=== PATIENT | female | born 1965 | race Caucasian/White ===

== ENCOUNTER → 2018-05-02 10:52 | Outpatient (CLI) | payer BC, SELFPAY ==
[2017-02-02 16:37] VITALS: BMI 21.2
--- NOTE | 2018-05-02 11:00 | EKG12_ITS ---
Test Reason : PRE OP Blood Pressure : / mmHG Vent. Rate : 057 BPM Atrial Rate : 057 BPM P-R Int : 138 ms QRS Dur : 102 ms QT Int : 426 ms P-R-T Axes : 065 025 036 degrees QTc Int : 414 ms Sinus bradycardia Otherwise normal ECG Confirmed by MARISELA COLON ([id number]), subeditor ZANDER POSADA ([id number]) on 05/04/2018 1:08:22 PM Referred By: Yaw Calero Confirmed By:MARISELA COLON
[2018-05-02 11:34] LABS: Hematocrit 41.7 % (37-47); Hemoglobin 13.4 g/dl (12.0-15.0); Mean Corp Hgb Conc 32.1 g/gl (32-36); Mean Corpuscular Hgb 29.1 pg (27.0-32.0); Mean Corpuscular Volume 90.7 fL (81-99); Platelet Count 265 K/mm3 (150-450); RBC Distribution Width CV 13.1 % (11.6-14.6); RBC Distribution Width SD 42.8 fl (35.1-43.9); White Blood Count 6.3 K/mm3 (4.4-11.0)
[2018-05-02 11:36] LABS: Scan Indicated on CBC? Y/N NO
[2018-05-02 11:57] LABS: Anion Gap 7 (5-15); BUN 12 mg/dL (7-18); BUN/Creat Ratio 18.1 RATIO (10-20); Calcium,Total 8.3 mg/dL (8.5-10.1); Chloride 108 mmol/L (98-107); Creatinine, Serum 0.66 mg/dL (0.55-1.02); EST Glomerular Filtration Rate 99 mL/min (>60); Est Glom Filt Rate - Afr Amer 120 mL/min (>60); Glucose 109 mg/dL (74-106); Potassium 4.1 mmol/L (3.5-5.1); Sodium Level 141 mmol/L (136-145)
== END ==
PROVIDERS: Family Provider Internal Medicine; PCP Internal Medicine; Referring Provider Orthopaedic Surgery; Visit Provider Orthopaedic Surgery
DX: Z01.818 Encounter for other preprocedural examination (principal); Z01.810 Encounter for preprocedural cardiovascular examination
CPT/HCPCS: 36415; 80048; 85027; 93005

== ENCOUNTER 2020-06-29 09:07 | Day surgery (SDC) | payer OTHER, SELFPAY ==
[2020-06-29] VITALS (8 sets, daily range): BP systolic 86–124; BP diastolic 54–66; PULSE 52–60; RESP 14–16; TEMP 36.5–36.6; O2SAT 99–100; BMI 22.9
[2020-06-29] MEDS: Lactated Ringers 1,000 ML 100 ML IV (09:55)
--- NOTE | 2020-06-29 10:20 | RAD_ITS ---
PROCEDURE: Left C4-C7 nerve root block. DATE OF EXAMINATION: 06/29/2020. INDICATION: Female, 54 years old. Chronic neck pain. FLUOROSCOPY TIME (if supplied): (9 seconds) minutes/seconds. 4 intraoperative images were obtained. Intraoperative images provided for left C4-C7 nerve root block. RAD/Cerv Spine 4 or 5 Views IMPRESSION: Intraoperative imaging provided for left C4-C7 nerve root block. Electronically Signed: Phill Cárdenas MD at 14:04 EDT , Service support ,
[2020-06-29] MEDS: MethylPREDNISolone Acetate 80 MG/ML Vial (10:25)
[2020-06-29] MEDS: Bupivacaine 0.25% 30 ML Vial (10:25)
--- NOTE | 2020-06-29 10:31 | OP.PCM_ITS ---
Report of Operation Description of Surgical Findings:: PREOPERATIVE DIAGNOSIS: Cervical spondylosis, cervical degenerative disc disease, cervical facet arthropathy POSTOPERATIVE DIAGNOSIS: Cervical spondylosis, cervical degenerative disc disease, cervical facet arthropathy PROCEDURE PERFORMED: Diagnostic left-sided cervical medial branch block at, C4, C5, C6, and C7. ANESTHESIA: MAC. BLOOD LOSS: Minimal. COMPLICATIONS: None. DESCRIPTION OF PROCEDURE: History and physical of today was reviewed. Risks and benefits of the procedure were explained. The patient understood and agreed to proceed. Informed consent was obtained. IV inserted per routine protocol. The patient was taken to the operating room and placed in the prone position with a pillow positioned underneath the chest. The neck area was prepped and draped in a sterile fashion using iodine x3. Under fluoroscopy guidance on an AP view, the C4 through C7 vertebral bodies were visualized at approximately 10- degree angle, starting on the left C4, ending on the left C7, passing through the C5 and C6. Using a 25-gauge 3-1/2-inch spinal needle, the needle was advanced via the skin. The tip of the needle was maneuvered and directed towards the epiphyseal junction of each corresponding vertebra. Once the tip of the needle was at the vicinity of the medial branch, the needle was pulled approximately 2 mm off the bone. After negative aspiration of blood or CSF and confirmation on AP, oblique as well as lateral view, a total of 4 mL of preservative-free 0.25% Marcaine with 80 mg of Depo-Medrol was injected in divided doses between those four levels. The needles were then removed intact. The patient experienced no sign or symptoms of intrathecal or intravascular injection. The patient experienced no paresthesia. The procedure was completed without any apparent difficulty or any complications. The patient appeared to tolerate it well. ASSESSMENT AND PLAN: This is a 54-year-old female with cervical spondylosis, cervical degenerative disc disease, cervical facet arthropathy status post diagnostic left-sided cervical medial branch block at C4-C7, patient will continue her current medications, patient will follow in approximately 2 weeks for reevaluation. Type of Anesthesia: MAC Estimated Blood Loss (mL): minimal Complications None
== END 2020-06-29 11:35 | disposition home or self-care (01) ==
LOC: SDC 09:08 → AC 09:10
PROVIDERS: PCP Internal Medicine; Referring Provider Anesthesiology Pain Medicine; Visit Provider Anesthesiology Pain Medicine
PROC: 3E0U3BZ Introduction of Anesthetic Agent into Joints, Percutaneous Approach (ICD-10-PCS; CPT 64490; principal; 2020-06-29 10:35)
DX: M47.812 Spondylosis without myelopathy or radiculopathy, cervical region (principal); M50.30 Other cervical disc degeneration, unspecified cervical region; K21.9 Gastro-esophageal reflux disease without esophagitis
CPT/HCPCS: 64491; 64490; 72050; J7120

== ENCOUNTER 2020-12-26 10:32 | Emergency (ER) | payer OTHER, SELFPAY ==
[2020-12-26 10:33] VITALS: BP 96/60; PULSE 72; RESP 16; TEMP 36.6; O2SAT 99; BMI 21.9
--- NOTE | 2020-12-26 10:46 | EX.ED.GENINJ ---
HPI History of Present Illness Chief Complaint: Laceration Informant: patient Narrative Narrative: 55-year-old female presents the emergency department with a laceration of the left middle finger. Patient was attempting to move some metal art work when a piece of the metal lacerated her finger. She notes that she is left-handed. Tetanus is less than 5 years. Tetanus Immunization: <5 years PFSH PFSH Medical History Back problem Post-menopausal Home Medications cephalexin 500 mg PO Q6 #20 capsule 12/26/20 [Rx Last Taken Unknown] Allergy/AdvReac Type Severity Reaction Status Date / Time No Known Allergies Allergy Verified 12/26/20 10:34 Family History (Updated 04/30/19 @ 14:04 by Melva Rivera) Sister Arthritis Lung cancer Brother Heart disease Surgical History History of breast augmentation History of tonsillectomy Social History Smoking Status: Never smoker alcohol intake: current substance use type: does not use additional social history: DOES USE ASPIRIN DOES USE IBUPROFEN ROS ROS ED Constitutional Constitutional ED: Denies chills, fever(s) or weight loss Eyes Eyes: Denies change in vision or diplopia ENT ENT ED: Denies ear pain, rhinorrhea or sore throat Cardiovascular Cardiovascular: Denies chest pain, orthopnea, palpitations or racing heartbeat Respiratory/Chest Respiratory/Chest: Denies cough, dyspnea or orthopnea Gastrointestinal Gastrointestinal: Denies abdominal pain, diarrhea, nausea or vomiting Genitourinary Genitourinary ED: Denies dysuria, hematuria or urinary frequency Musculoskeletal Musculoskeletal: Denies arthralgias or myalgias Integumentary Reports other Details: Left middle finger laceration ; Denies abscess or rash Neurologic Neurologic: Denies headache(s) or weakness Psychiatric Psychiatric: Denies anxiety, depression, suicidal ideation or suicidal thoughts Endocrine Endocrinology: Denies polydipsia, polyphagia or polyuria Allergic/Immunologic Allergic/Immunologic ED: Denies mouth swelling, tongue swelling or urticaria EXAM Physical Exam Const Vital Signs: 12/26/20 10:33 Temperature 98 F Temperature Source Temporal Pulse Rate 72 Respiratory Rate 16 Blood Pressure 96/60 Blood Pressure Mean 72 Pulse Ox 99 Oxygen Delivery Method Room Air Positive well nourished and well developed General Appearance ED: well developed HEENT Reports normocephalic, head/scalp atraumatic, TM's clear and moist mucous membranes atraumatic Tympanic Membrane ED: Yes TM's clear Eyes PERRL and EOMs intact bilaterally Neck full ROM, no lymphadenopathy, supple and no JVD General: tenderness Resp normal respiratory effort and clear to auscultation bilaterally Cardio regular rate, regular rhythm and no murmurs Rate: regular rate GI normal to inspection, nondistended, normoactive bowel sounds and non-tender Palpation: soft Back/Spine no CVA tenderness and normal ROM Extremity Extremity Narrative: There appears to be no deficit in extensor tendon function over the proximal phalanx on the dorsal surface left middle finger is a flap laceration measuring approximately 1.5 cm there is visualization of the tendon but it does not appear to be lacerated. General Extremety ED: Negative for edema General Extremity: Negative for edema Neuro oriented x3 and CN's II-XII intact bilaterally Sensorium / Orientation: alert Motor Exam: strength 5/5 throughout Psych mental status grossly normal Mood & Affect: Negative for depressed or tearful Skin no rashes or lesions noted and no wounds MDM MDM MDM Narrative Medical decision making narrative: Wound was locally anesthetized using 1% lidocaine washed with Shur-Clens and explored. It was closed using a total of 4 simple interrupted 4-0 Ethilon sutures. Patient was placed on Keflex for few days for prophylaxis. Stitches will need to be removed in 7 to 10 days. Discharge Plan Triage Chief Complaint: Laceration ED Provider: Nadeem Jacques Dx/Rx/DC Orders Clinical Impression: Laceration of finger of left hand Instructions: ED Laceration, Hand: All Closures Prescriptions: New cephalexin [cephalexin] 500 MG capsule 500 mg PO Q6 Qty: 20 RF: 0 Primary Care Provider: Madie Metcalf Referrals: Madie Metcalf MD [Primary Care Provider] - 10 Day for suture removal Disposition Disposition: Home, Self Care
[2020-12-26] MEDS: Lidocaine 1% (20 ml mdv) 20 ML Vial INFILT (11:04)
[2020-12-26 11:08] VITALS: RESP 16
== END 2020-12-26 11:15 | disposition home or self-care (01) ==
LOC: ED 11:12
PROVIDERS: Emergency Provider Emergency Medicine; PCP Internal Medicine
DX: S61.213A Laceration without foreign body of left middle finger without damage to nail, initial encounter (principal); W26.8XXA Contact with other sharp object(s), not elsewhere classified, initial encounter; Y93.89 Activity, other specified; Y92.89 Other specified places as the place of occurrence of the external cause; Y99.8 Other external cause status
CPT/HCPCS: 12001; 99283

== ENCOUNTER 2021-01-21 16:13 | Emergency (ER) | payer OTHER, SELFPAY ==
[2021-01-21 16:14] VITALS: BP 118/56; PULSE 74; RESP 18; TEMP 36.4; O2SAT 100; BMI 21.4
--- NOTE | 2021-01-21 16:21 | EDS_ITS ---
HPI History of Present Illness Chief Complaint: Lower Extremity Injury Narrative Narrative: 55-year-old female presenting with left great toe pain. She states she slammed in a door at about 1130. She has some bruising noted to the dorsal aspect of the left great toe. She has been ambulatory. He does note there is some bruising at the base of the nail. She does not have any lacerations or abrasions. No numbness or tingling. She took Tylenol earlier but this does not seem to control the pain. [facility] Medical History Back problem Post-menopausal Home Medications naproxen [Naprosyn] 500 mg PO BID PRN #20 tab 01/21/21 [Rx Last Taken Unknown] Allergy/AdvReac Type Severity Reaction Status Date / Time No Known Allergies Allergy Verified 01/21/21 16:16 Family History Sister Arthritis Lung cancer Brother Heart disease Surgical History History of breast augmentation History of tonsillectomy Social History Smoking Status: Never smoker alcohol intake: current substance use type: does not use additional social history: DOES USE ASPIRIN DOES USE IBUPROFEN ROS ROS ED Constitutional Constitutional ED: Denies chills, fever(s) or subjective Eyes Eyes: Denies blurry vision or change in vision ENT ENT ED: Denies ear pain or rhinorrhea Cardiovascular Cardiovascular: Denies chest pain or palpitations Respiratory/Chest Respiratory/Chest: Denies cough or dyspnea Gastrointestinal Gastrointestinal: Denies abdominal pain or nausea Genitourinary Genitourinary ED: Denies dysuria or hematuria Musculoskeletal Musculoskeletal: Reports other Details: Left great toe pain Integumentary Denies abscess or rash Neurologic Neurologic: Denies headache(s) or paresthesias EXAM Physical Exam Const Vital Signs: 01/21/21 16:14 Temperature 97.6 F L Temperature Source Temporal Pulse Rate 74 Respiratory Rate 18 Blood Pressure 118/56 L Blood Pressure Mean 76 Pulse Ox 100 Oxygen Delivery Method Room Air Positive well nourished General Appearance ED: NAD HEENT Reports moist mucous membranes normocephalic and atraumatic Resp normal respiratory effort Effort and Inspection: able to speak in complete sentences Cardio regular rate and regular rhythm Extremity Extremity Narrative: Tenderness palpation over the dorsum of the left great toe. There are some bruising at the base of the nailbed. There is no obvious deformity. Left foot neurovascular intact brisk cap refill to all 5 toes Neuro oriented x3 Sensorium / Orientation: alert Psych mental status grossly normal Skin Skin Narrative: As described above MDM MDM MDM Narrative Medical decision making narrative: 55-year-old female presenting with left great toe pain. She states he slammed it in a door earlier today. She took Tylenol without significant relief. She is given Naprosyn in the ER as she is driving. I ordered an x-ray of the left foot. While awaiting the results of the x-ray the patient states I have to leave I have people showing up to my house for Thanksgiving. I did review the x-ray and on my interpretation the left foot shows no fracture or subluxation. Patient counseled that she will likely need anti-inflammatories, ice and elevation. Impression: 1. Left great toe contusion Radiography Diagnostic Testing: Clinical Impression(s) from Imaging Studies Foot X-Ray 01/21/21 16:21 IMPRESSION: Normal x-ray examination of the foot. Electronically Signed: Pool Boogie MD at 17:20 EST , Service support , Discharge Plan Triage Chief Complaint: Lower Extremity Injury ED Provider: Santiago Wong Dx/Rx/DC Orders Instructions: ED Contusion, Lower Extremity Prescriptions: New naproxen [Naprosyn] 500 mg tablet 500 mg PO BID PRN (Reason: pain) Qty: 20 RF: 0 Primary Care Provider: Madie Metcalf Referrals: Madie Metcalf MD [Primary Care Provider] - Disposition Disposition: Home, Self Care Discharge Date/Time: 01/21/21 17:59
--- NOTE | 2021-01-21 16:21 | RAD_ITS ---
STUDY: X-RAY - LEFT FOOT CLINICAL: Female, 55 years old. great toe pain TECHNIQUE: 4 view(s) of the foot. COMPARISON: None. FINDINGS: Normal talus, calcaneus, and tarsal bones. Normal visualized subtalar, talonavicular, calcaneocuboid, tarsal and tarsometatarsal articulations. Normal metatarsi. Normal metatarsophalangeal joint of the great toe. Normal tibial and fibular sesamoid bones. Normal interphalangeal joint of the great toe. Normal phalanges of the great toe. Normal second through fifth metatarsophalangeal joints. Normal interphalangeal joints and phalanges of the lesser toes. The soft tissue structures are unremarkable. There is no demonstrated fracture. RAD/Foot min 3 Views IMPRESSION: Normal x-ray examination of the foot. Electronically Signed: Pool Boogie MD at 17:20 EST , Service support ,
[2021-01-21] MEDS: Naproxen 500 MG Tablet PO (16:27)
== END 2021-01-21 17:59 | disposition home or self-care (01) ==
PROVIDERS: Emergency Provider Student in an Organized Health Care Education/Training Program; PCP Internal Medicine
DX: S90.112A Contusion of left great toe without damage to nail, initial encounter (principal); W20.8XXA Other cause of strike by thrown, projected or falling object, initial encounter; Y93.89 Activity, other specified; Y92.008 Other place in unspecified non-institutional (private) residence as the place of occurrence of the external cause; Y99.8 Other external cause status
CPT/HCPCS: 73630; 99283

== ENCOUNTER → 2021-07-19 | Outpatient (CLI) | payer BC, SELFPAY ==
[2021-07-19 17:52] LABS: Prothrombin Time (Protime)PT. 13.1 SECONDS (11.7-14.9)
== END | disposition home or self-care (01) ==
LOC: LABSPEC 16:55
PROVIDERS: PCP Internal Medicine
DX: R10.2 Pelvic and perineal pain (principal)
CPT/HCPCS: 85610

== ENCOUNTER → 2021-11-11 | Outpatient (CLI) | payer BC, SELFPAY ==
--- NOTE | 2021-11-11 15:13 | VDLE_ITS ---
Reason For Study: localized swelling Procedure LEFT This is a venous duplex using B-mode, color GSV is normal. flow and spectral Doppler. CFV is compressible, spontaneous, phasic, Exam performed in department. competent, and demonstrates normal The exam was abbreviated due to the COVID 19 augmentation. protocol. FV is compressible, spontaneous, phasic, The exam was diagnostic. competent and demonstrates normal A preliminary report was called and/or faxed augmentation. to Dr. Connelly. POP V is compressible, spontaneous, phasic, competent and demonstrates normal augmentation. T/P Trunk is compressible. PTV is compressible. LT PerV is compressible. Hypoechoic area behind the knee measuring 1.98 x .85 cm. Area is nonvascular. VL/Venous Duplex US, Unilateral Interpretation Summary There is no evidence of left lower extremity deep vein thrombosis. Left great s aphenous vein appears patent and compressible segmentally. Left popliteal fossa 1.98 x 0.85 nonvascul ar complex hypoechoic lesion consistent with a Packer's cyst based upon location. Clinical correlation would be appropriate. Ordering Physician: Ted Connelly Performed By: Steve Topete RVT
== END | disposition home or self-care (01) ==
LOC: CVS 15:10
PROVIDERS: PCP Internal Medicine; Visit Provider Student in an Organized Health Care Education/Training Program
DX: R22.42 Localized swelling, mass and lump, left lower limb (principal)
CPT/HCPCS: 93971

== ENCOUNTER 2022-02-20 15:29 | Emergency (ER) | payer BC, SELFPAY ==
[2022-02-20 15:29] VITALS: BP 142/71; PULSE 64; RESP 15; TEMP 36; O2SAT 100; BMI 23.8
--- NOTE | 2022-02-20 15:43 | EDS_ITS ---
HPI History of Present Illness HPI Narrative: Atraumatic pain and swelling left distal forearm. No fall injury or trauma. Recently she was peeling a lot of potatoes for Holiday meal and yesterday is when the pain and swelling occurred while she was doing that. She is on no medications and no blood thinners. No prior history. She is left-hand dominant. Chief Complaint: Upper Extremity Injury Informant: patient Occured/Mechanism Mechanism/Context: No injury and No blunt trauma Onset/Context/Timing Onset: Yesterday Context: Gradual Onset Timing: Continuous Quality of Pain: Dull Current Severity: Mild Maximum Severity: Mild Associated Symptoms Associated Symptoms: Negative for Parasthesia, Weakness or Loss of Funtion Narrative Narrative: 58-year-old female left hand dominant. Atraumatic pain and swelling left forearm after peeling a lot of potatoes. She is on no blood thinners or other medications. She denies any known injury. Prior similar symptoms: No Recent Illness/Hospitalization: No PFSH PFSH Medical History Back problem Diastasis of rectus abdominis Elective procedure for unacceptable cosmetic appearance Excessive skin and subcutaneous tissue Platysmal band of neck Post-menopausal Skin laxity Skin striae Home Medications naproxen 500 mg tablet (Naprosyn) 500 mg PO BID PRN pain #20 tabs 01/21/21 [Rx Last Taken Unknown] Allergy/AdvReac Type Severity Reaction Status Date / Time No Known Allergies Allergy Verified 02/20/22 15:29 Family History Sister Arthritis Lung cancer Brother Heart disease Surgical History History of bilateral saline breast implants History of breast augmentation History of tonsillectomy Social History Smoking Status: Never smoker alcohol intake: current substance use type: does not use additional social history: DOES USE ASPIRIN DOES USE IBUPROFEN ROS ROS ED ROS Narrative No recent illness. Review of Systems ROS Unobtainable: Denies due to encephalopathy Constitutional Constitutional ED: Denies chills or fever(s) Eyes Eyes: Denies blurry vision ENT ENT ED: Denies ear pain Cardiovascular Cardiovascular: Denies chest pain Respiratory/Chest Respiratory/Chest: Denies cough or dyspnea Gastrointestinal Gastrointestinal: Denies abdominal pain Genitourinary Genitourinary ED: Denies dysuria or hematuria Musculoskeletal Musculoskeletal: Denies back pain or myalgias Integumentary Denies abscess Neurologic Neurologic: Denies headache(s) Psychiatric Psychiatric: Denies anxiety or depression Endocrine Endocrinology: Denies cold intolerance Hematologic/Lymphatic Hematologic/Lymphatic: Denies easy bleeding Allergic/Immunologic Allergic/Immunologic ED: Denies mouth swelling or tongue swelling EXAM Physical Exam Narrative Exam Narrative: 36-year-old female no acute distress. Vital signs stable afebrile. H EENT exam unremarkable. Neck nontender no lymphadenopathy. Lungs clear to auscultation. Heart regular rhythm no murmur. Abdomen soft nontender. Moving all 4 extremities. Neurovascular intact. The left forearm distal third on the dorsum she has mild swelling and tenderness over the extensor muscle. No bony deformity. Full flexion-extension and rotation of the left shoulder, elbow, wrist and hand. Normal motor strength the left hand. Normal sensation. Normal radial pulse. Neurologic exam normal. Const Vital Signs: 02/20/22 15:29 Temperature 96.8 F L Temperature Source Temporal Pulse Rate 64 Respiratory Rate 15 Blood Pressure 142/71 H Blood Pressure Mean 94 Pulse Ox 100 Oxygen Delivery Method Room Air Positive well nourished and well developed; Negative for obese, cachectic, contr actures or unkempt General Appearance ED: well developed and NAD; Negative for unkempt, cachectic, contractures, cyanotic or diaphoretic Nutritional Appearance: Negative for cachectic or obese HEENT Reports moist mucous membranes normocephalic and atraumatic; Negative for trauma or tenderness Eyes PERRL and EOMs intact bilaterally General Eye ED: Negative for other Neck full ROM and supple General: Negative for tenderness Lymph Lymphatic: Negative for other Chest Wall inspection of chest normal and palpation of chest normal Chest: Negative for other Resp normal respiratory effort and clear to auscultation bilaterally Effort and Inspection: Negative for pain with movement Auscultation: Negative for rales or rhonchi Cardio regular rate, regular rhythm, S1 normal heart sound, S2 normal heart sound and no murmurs Rate: Negative for bradycardia or tachycardic Rhythm: Negative for abnormal rhythm GI non-tender, non-distended and no masses Inspection: Negative for abdominal distention Auscultation: normoactive bowel sounds Palpation: soft; Negative for tender or guarding Back/Spine no CVA tenderness General Back: Negative for CVA tenderness Cervical Spine: Negative for cervical spine tenderness Thoracic Spine / Upper Back: Negative for thoracic spinal tenderness Lumbar Spine / Lower Back: Negative for lumbar spinal tenderness Extremity full ROM; Negative for normal to inspection Extremity Narrative: Left forearm tenderness over the dorsal distal third of the forearm on the radial side. Soft tissue tenderness. Mild swelling. Most likely a tendinitis and/or hematoma. No bony deformity. Full range of motion. Left hand neurovascular intact. General Extremety ED: Negative for edema or other findings General Extremity: Negative for edema or other findings Neuro oriented x3, CN's II-XII intact bilaterally, moves all extremities, no focal motor deficits and no sensory deficits noted Sensorium / Orientation: alert, oriented to person, oriented to place and oriented to time; Negative for orientation impaired, lethargic or stuporous Motor Exam: strength 5/5 throughout; Negative for muscle tone normal throughout or general weakness Psych mental status grossly normal Appearance: Negative for unkempt Attitude: No agitated Mood & Affect: Negative for depressed, anxious or tearful Skin General Skin Exam: Negative for petechiae Lesions: no lesions Rashes: no rashes Trauma: Negative for no lacerations or abrasions, abrasion or laceration MDM MDM MDM Narrative Medical decision making narrative: 56-year-old female with left forearm pain and swelling. Clinically this is a tendinitis and/or hematoma. X-rays will be obtained. Repeat exam unchanged at 4:20 PM. She will be discharged home treated as a tendinitis and/or hematoma. Ice. Motrin. Rest. Elevate. Should progressively improve. If not follow-up. Radiography Diagnostic Testing: Left forearm x-ray 2 views interpreted by myself shows no acute abnormality. No fracture or dislocation. Discharge Plan Triage Chief Complaint: Upper Extremity Injury ED Provider: Omari Yeung Dx/Rx/DC Orders Clinical Impression: Tendinitis Instructions: ED Tendonitis Prescriptions: No Action naproxen [Naprosyn] 500 mg tablet 500 mg PO BID PRN (Reason: pain) Qty: 20 0RF Primary Care Provider: Madie Metcalf Referrals: Madie Metcalf MD [Primary Care Provider] - 1 Week if not improving Activity Restrictions/Additional Instructions: Most likely is secondary to a tendinitis of your left forearm. It could also be a strain of the muscle and a hematoma. All treated the same way. Ice, elevate, rest with Motrin for pain and inflammation. And Tylenol. This should progressively improve. Follow-up with your doctor if not improving. Disposition Disposition: Home, Self Care
--- NOTE | 2022-02-20 16:05 | RAD_ITS ---
STUDY: X-RAY - LEFT RADIUS AND ULNA REASON FOR EXAM: Female, 56 years old. atraumatic pain and swelling TECHNIQUE: 2 view(s) of the forearm. COMPARISON: None. FINDINGS: There is no demonstrated soft tissue swelling. Normal visualized radius. Normal visualized ulna. RAD/Forearm 2 Views IMPRESSION: Normal x-ray examination of the radius and ulna. Electronically Signed: Pamella Baltazar MD at 16:41 EST Reading Location ID and State: , Service support ,
== END 2022-02-20 16:31 | disposition home or self-care (01) ==
PROVIDERS: Emergency Provider Emergency Medicine; PCP Internal Medicine; Visit Provider Emergency Medicine
DX: M77.9 Enthesopathy, unspecified (principal); M79.632 Pain in left forearm
CPT/HCPCS: 73090; 99282

== ENCOUNTER → 2023-08-08 | Outpatient (CLI) | payer BC, SELFPAY ==
[2023-08-08 15:59] LABS: Absolute Lymphocyte Count 1.79 X10^3/uL (0.83-4.51); Absolute Neutrophil Count 3.5 X10^3/uL (2.0-7.7); Basophil# 0.06 X10^3/uL; Eosinophil# 0.12 X10^3/uL; Eosinophils% 2.1 % (0-5); Hematocrit 43.1 % (37-47); Hemoglobin 13.6 g/dL (12.0-15.0); Lymphocyte # 1.79 X10^3/ul (0.83-4.51); Lymphocyte % 31.1 % (19-41); Mean Corp Hgb Conc 31.6 g/dL (32-36); Mean Corpuscular Hgb 27.4 pg (27.0-32.0); Mean Corpuscular Volume 86.9 fL (81-99); Mean Platelet Vol. 10.8 fl (6.2-12.0); Monocyte% 5.2 % (0-10); NRBC Flagged by Analyzer 0 % (0-5); Neutrophil # 3.46 X10^3/uL (2.7-7.7); Neutrophil % 60.3 % (47-70); Platelet Count 313 K/mm3 (150-450); RBC Distribution Width CV 13.4 % (11.6-14.6); RBC Distribution Width SD 42.6 fl (35.1-43.9); Red Blood Count 4.96 M/mm3 (4.2-5.4); White Blood Count 5.8 K/mm3 (4.4-11.0)
[2023-08-08 16:29] LABS: ALB/GLOB Ratio 1.3 RATIO (0.9-2.4); AST(SGOT) 19 U/L (15-37); Alanine Aminotransfer ALT/SGPT 25 U/L (13-56); Albumin, Serum 4.3 g/dL (3.2-5.0); Alkaline Phosphatase 150 U/L (45-117); Anion Gap 5 (5-15); BUN 13 mg/dL (7-18); BUN/Creat Ratio 17.3 RATIO (10-20); Calcium,Total 9.6 mg/dL (8.5-10.1); Chloride 106 mmol/L (98-107); Cholesterol 235 mg/dL (200); Creatinine, Serum 0.75 mg/dL (0.55-1.02); EST Glomerular Filtration Rate 84 mL/min (>60); Est Glom Filt Rate - Afr Amer 102 mL/min (>60); Globulin 3.4 g/dL (2.2-4.2); Glucose 94 mg/dL (74-106); High Density Lipoprotein 61 mg/dL; Potassium 4.3 mmol/L (3.5-5.1); Protein, Total 7.7 g/dL (6.4-8.2); Sodium Level 139 mmol/L (136-145); Triglycerides 172 mg/dL; Very Low Density Lipoprotein 34 mg/dL (5-40)
== END | disposition home or self-care (01) ==
PROVIDERS: PCP Nurse Practitioner Family; Referring Provider Nurse Practitioner Family; Visit Provider Nurse Practitioner Family
DX: Z00.01 Encounter for general adult medical examination with abnormal findings (principal)
CPT/HCPCS: 36415; 80053; 80061; 85025

== ENCOUNTER → 2024-04-25 | Outpatient (CLI) | payer BC, SELFPAY | END | disposition home or self-care (01) | LOC: LABSPEC 11:00 | PROVIDERS: PCP Nurse Practitioner Family; Referring Provider Family Medicine; Visit Provider Family Medicine | DX: N39.0 Urinary tract infection, site not specified (principal) | CPT/HCPCS: 87086; 87088; 87186 ==

== ENCOUNTER → 2024-08-12 | Outpatient (CLI) | payer BC, SELFPAY ==
[2024-08-12 18:05] LABS: Absolute Lymphocyte Count 1.75 X10^3/uL (0.83-4.51); Absolute Neutrophil Count 4.1 X10^3/uL (2.0-7.7); Basophil# 0.05 X10^3/uL; Basophil% 0.8 % (0-1); Eosinophil# 0.15 X10^3/uL; Eosinophils% 2.3 % (0-5); Hematocrit 38.7 % (37-47); Hemoglobin 12.4 g/dL (12.0-15.0); Lymphocyte # 1.75 X10^3/ul (0.83-4.51); Lymphocyte % 27.3 % (19-41); Mean Corpuscular Hgb 27.4 pg (27.0-32.0); Mean Corpuscular Volume 85.4 fL (81-99); Mean Platelet Vol. 10.7 fl (6.2-12.0); Monocyte# 0.31 X10^3/uL; Monocyte% 4.8 % (0-10); NRBC Flagged by Analyzer 0 % (0-5); Neutrophil # 4.14 X10^3/uL (2.7-7.7); Neutrophil % 64.5 % (47-70); Platelet Count 327 K/mm3 (150-450); RBC Distribution Width CV 13.2 % (11.6-14.6); Red Blood Count 4.53 M/mm3 (4.2-5.4); White Blood Count 6.4 K/mm3 (4.4-11.0)
[2024-08-13 15:11] LABS: ALB/GLOB Ratio 1.7 RATIO (0.9-2.4); AST(SGOT) 23 U/L (<=31); Alanine Aminotransfer ALT/SGPT 15 U/L (<=34); Albumin, Serum 4.5 g/dL (3.5-5.0); Alkaline Phosphatase 151 U/L (35-104); Anion Gap 12 (5-15); BUN 14 mg/dL (4-19); BUN/Creat Ratio 23.1 RATIO (10-20); Calcium,Total 9.3 mg/dL (7.6-11.0); Carbon Dioxide 23.5 mmol/L (21.0-32.0); Chloride 107 mmol/L (98-108); Cholesterol 234 mg/dL (<=200); Creatinine, Serum 0.61 mg/dL (0.70-1.20); EST Glomerular Filtration Rate 104 (>60); Globulin 2.6 g/dL (2.2-4.2); Glucose 83 mg/dL (70-99); High Density Lipoprotein 59 mg/dL; Low Density Lipoprotein Calc. 150 mg/dL; Protein, Total 7.1 g/dL (5.9-8.4); Sodium Level 143 mmol/L (133-145); Total Bilirubin 0.35 mg/dL (0.00-1.30); Triglycerides 123 mg/dL; Very Low Density Lipoprotein 25 mg/dL (5-40); cholesterol:hdl ratio screen 3.94
== END | disposition home or self-care (01) ==
LOC: BFHLAB 14:30
PROVIDERS: PCP Nurse Practitioner Family; Visit Provider Nurse Practitioner Family
DX: Z00.01 Encounter for general adult medical examination with abnormal findings (principal)
CPT/HCPCS: 36415; 80053; 80061; 85025

== ENCOUNTER → 2024-09-25 | Outpatient (CLI) | payer BC, SELFPAY ==
--- NOTE | 2024-09-25 11:08 | RAD_ITS ---
PROCEDURE: CHEST PA AND LATERAL 09/25/2024 REASON FOR EXAM: CHEST PAIN TECHNIQUE: CHEST PA AND LATERAL COMPARISON: None FINDINGS: Hardware: None Heart: The heart size is normal. Mediastinum: The mediastinal contour is unremarkable. Lungs: The lungs are clear. Bones: The bones are unremarkable. RAD/Chest PA and Lateral IMPRESSION: No acute pulmonary process Reading Location: [id number]
== END | disposition home or self-care (01) ==
LOC: MTRAD 11:00
PROVIDERS: PCP Nurse Practitioner Family; Referring Provider Nurse Practitioner Family; Visit Provider Nurse Practitioner Family
DX: R07.89 Other chest pain (principal)
CPT/HCPCS: 71046

== ENCOUNTER 2024-09-29 10:23 | Emergency (ER) | payer BC, SELFPAY ==
[2024-09-29 10:25] VITALS: BP 125/77; PULSE 76; RESP 14; TEMP 36.9; O2SAT 98; BMI 24.0
--- NOTE | 2024-09-29 10:57 | EKG12_ITS ---
Test Reason : CP FOR 1 WEEK Blood Pressure : */* mmHG Vent. Rate : 69 BPM Atrial Rate : 69 BPM P-R Int : 138 ms QRS Dur : 86 ms QT Int : 388 ms P-R-T Axes : 62 18 26 degrees QTcB Int : 415 ms Normal sinus rhythm Normal ECG Confirmed by PEGGY SANTORO, YUDELKA ([id number]), clinical editor LILIANA HERMOSILLO ([id number]) on 09/30/2024 9:48:05 AM Referred By: AK/TB Confirmed By: YUDELKA WOODS MD
--- NOTE | 2024-09-29 11:06 | ED.VIS.CHEST ---
HPI <LORNA Suarez - Last Filed: 09/29/24 16:37> History of Present Illness Chief Complaint: Chest Pain Narrative Narrative: 59-year-old female with no significant past medical history developed pain in her left chest wall 2 weeks ago. It hurts with coughing, hiccuping, or rolling onto her left side in bed. She saw her PCP and had a normal chest x-ray and was prescribed tramadol and Flexeril which she takes at night. She takes ibuprofen during the day. She had breast implants placed 30 years ago and is concerned it could be related to a leak so presents requesting a breast ultrasound. She has not followed up with the plastic surgeon since the original surgery but is scheduled to see Dr. Da Silva October 10. She denies exertional or pleuritic pain. She has never been a smoker. PFSH <LORNA Suarez - Last Filed: 09/29/24 16:37> [facility] Medical History Back problem Diastasis of rectus abdominis Elective procedure for unacceptable cosmetic appearance Excessive skin and subcutaneous tissue Platysmal band of neck Post-menopausal Skin laxity Skin striae Home Medications ?Medication ?Instructions ?Recorded ?Last Taken ?Type cyclobenzaprine 10 mg tablet 10 mg PO QHS 09/29/24 Unknown History ibuprofen 200 mg tablet (Advil) 400 mg PO Q6H PRN pain 09/29/24 09/28/24 History tramadol 50 mg tablet 50 mg PO Q6H PRN pain 09/29/24 09/28/24 History Allergy/AdvReac Type Severity Reaction Status Date / Time No Known Allergies Allergy Verified 09/29/24 10:28 Family History Sister Arthritis Lung cancer Brother Heart disease Surgical History History of bilateral saline breast implants History of breast augmentation History of tonsillectomy Social History Smoking Status: Never smoker alcohol intake: current substance use type: does not use additional social history: DOES USE ASPIRIN DOES USE IBUPROFEN ROS <LORNA Suarez - Last Filed: 09/29/24 16:37> ROS ED ROS Narrative Constitutional: Negative for fever, chills, malaise. CVS: Positive for chest pain negative for palpitations, syncope. Respiratory: Negative for shortness of breath, cough. GI: Negative for abdominal pain, nausea, vomiting, diarrhea. EXAM <LORNA Suarez - Last Filed: 09/29/24 16:37> Physical Exam Narrative Exam Narrative: CONST: Patient sitting in no acute distress. EYES: Normal inspection. NECK: Normal inspection. RESP: No respiratory distress, CTAB. CVS: Regular rate and rhythm, no murmur, no gallop. Tender over the left anterior medial chest wall, no deformity or crepitus. ABD: Soft and nontender, no guarding or rebound, nondistended. SKIN: Color normal, no rash, warm, dry, intact. EXTREMITIES: Normal appearance, no pedal edema. NEURO: Alert and answering questions appropriately. PSYCH: Normal affect. Const Vital Signs: 09/29/24 10:25 09/29/24 10:39 09/29/24 11:25 Temperature 98.5 F Temperature Source Oral Pulse Rate 76 Respiratory Rate 14 Respiratory Effort Normal Blood Pressure 125/77 H Blood Pressure Mean 93 Pulse Ox 98 Oxygen Delivery Method Room Air Room Air 09/29/24 11:25 09/29/24 12:09 09/29/24 12:36 Temperature 97.5 F L Temperature Source Pulse Rate 70 67 66 Respiratory Rate 18 14 14 Respiratory Effort Blood Pressure 136/83 H 132/66 H 130/73 H Blood Pressure Mean 100 88 92 Pulse Ox 96 98 100 Oxygen Delivery Method Room Air Room Air <Dr. Torey Wright DO - Last Filed: 09/29/24 15:29> Physical Exam Const Vital Signs: 09/29/24 10:25 09/29/24 10:39 09/29/24 11:25 Temperature 98.5 F Temperature Source Oral Pulse Rate 76 Respiratory Rate 14 Respiratory Effort Normal Blood Pressure 125/77 H Blood Pressure Mean 93 Pulse Ox 98 Oxygen Delivery Method Room Air Room Air 09/29/24 11:25 09/29/24 12:09 09/29/24 12:36 Temperature 97.5 F L Temperature Source Pulse Rate 70 67 66 Respiratory Rate 18 14 14 Respiratory Effort Blood Pressure 136/83 H 132/66 H 130/73 H Blood Pressure Mean 100 88 92 Pulse Ox 96 98 100 Oxygen Delivery Method Room Air Room Air [facility] <LORNA Suarez - Last Filed: 09/29/24 16:37> [facility] Narrative Medical decision making narrative: Differential: Muscle strain, costochondritis, ACS, PE 59-year-old female has had 2 weeks of left-sided chest pain when coughing or hiccuping. She appears well and nontoxic. Vital stable. Normal cardiopulmonary exam. She is reproducible tenderness along the left sternal border without skin changes so I suspect costochondritis. She was concerned about her breast implants but she does not have any breast pain. CBC, BMP unremarkable. EKG is nonischemic and troponin is less than 6. With 2 weeks of pain she does not require serial enzymes and I do not suspect cardiac etiology as it is not exertional or pleuritic. D-dimer is negative. Chest x-ray shows no acute process. She was treated with Toradol and advised to take NSAIDs and follow-up with her primary care doctor. She also has a consultation with plastic surgery regarding her breast implants in the future which I think is appropriate. She was discharged in stable condition. History & Record Review Discussion w/independent historian: Patient Lab Data Attestation: I reviewed the patient's lab results. Labs: Laboratory Results - last 24 hr 09/29/24 11:15 WBC 4.9 RBC 4.92 Hgb 13.4 Hct 40.7 MCV 82.7 MCH 27.2 MCHC 32.9 RDW Std Deviation 38.5 RDW Coeff of José Manuel 12.8 Plt Count 259 MPV 10.0 Immature Gran % (Auto) 0.200 Neut % (Auto) 58.3 Lymph % (Auto) 31.3 Potter % (Auto) 5.3 Eos % (Auto) 4.1 Baso % (Auto) 0.8 Absolute Neuts (auto) 2.9 Absolute Lymphs (auto) 1.53 Nucleated RBC % 0 D-Dimer Quant (PE/DVT) 0.45 Sodium 141 Potassium 4.2 Chloride 105 Carbon Dioxide 25.4 Anion Gap 10 BUN 10 Creatinine 0.66 L Estim Creat Clear Calc 72.59 Est GFR (MDRD) Non-Af 101 BUN/Creatinine Ratio 15.7 Glucose 102 H Calcium 9.2 Troponin T High Sens < 6 Radiography Diagnostic Testing: Clinical Impression(s) from Imaging Studies Chest X-Ray 09/29/24 11:30 IMPRESSION: No acute pulmonary process, no interval change Reading Location: [facility] ED attending interpretation of 2 view chest x-ray shows normal heart size, no acute infiltrate. EKG Initial EKG: Attestation: I personally reviewed and interpreted this EKG as follows: Interpretation: Sinus Rhythm and No Acute Injury Pattern Comments: Normal sinus rhythm at 69 bpm No acute ischemic changes No STEMI <Dr. Torey Wright, DO - Last Filed: 09/29/24 15:29> MDM MDM Narrative Medical decision making narrative: Differential: Muscle strain, costochondritis, ACS, PE 59-year-old female has had 2 weeks of left-sided chest pain when coughing or hiccuping. She appears well and nontoxic. Vital stable. Normal cardiopulmonary exam. She is reproducible tenderness along the left sternal border without skin changes so I suspect costochondritis. She was concerned about her breast implants but she does not have any breast pain. CBC, BMP unremarkable. EKG is nonischemic and troponin is less than 6. With 2 weeks of pain she does not require serial enzymes and I do not suspect cardiac etiology as it is not exertional or pleuritic. D-dimer is negative. Chest x-ray shows no acute process. She was treated with Toradol and advised to take NSAIDs and follow-up with her primary care doctor. She also has a consultation with plastic surgery regarding her breast implants in the future which I think is appropriate. She was discharged in stable condition. Supervisory Physician Note Patient was seen and examined with the Advanced Practice Provider. Nursing notes and vital signs have been reviewed. Pertinent old records have been reviewed. I agree with the essential elements of the CANDE's history, physical exam, assessment, and plan. The differential diagnosis and management options were discussed with the CANDE. I participated in determining and agree with the management, procedures, final impression and disposition as documented. See changes noted by me. Please see addendum or separate note for any additional details. 59-year-old female presents for evaluation of left-sided chest wall pain for approximately 2 weeks. Saw PCP with unremarkable chest x-ray. Denies any worsening symptoms. Denies any fever, chills, shortness of breath, chest pain abdominal pain, nausea, vomiting rashes or skin changes. Denies any trauma. Gen: A&O x3, NAD Head: Normocephalic, atraumatic Eyes: No sclera icterus, conjunctiva clear ENT: Moist mucous membranes Neck: Trachea midline, No JVD, full range of motion CV: RRR, no murmurs, no peripheral edema, patient has tenderness to palpation over the costochondral angles on the left upper chest-reproduces her pain Breast: Pendulous breasts bilaterally, nontender to palpation, no erythema/warmth/induration/fluctuance/rashes, nipples not inverted, no nipple discharge Resp: Lungs CTA BL, no w/r/c GI: Abd soft, non-distended, non-tender, no r/r/g Musc: Full ROM, no deformity Skin: Warm, dry Neuro: Alert, oriented, grossly intact, sensation intact Psych: Cooperative, appropriate mood and affect Agree with the differential listed above. Patient's breast examination is unremarkable without tenderness. I do not think any imaging of the breast is needed. Suspect more of a costochondritis or muscle strain. Although cannot fully rule out ACS, PE, pneumonia, pneumothorax. Toradol ordered for pain. EKG without any acute ischemic changes. This was personally reviewed and interpreted by me, ED physician. Chest x-ray without pneumonia, effusion, cardiomegaly, pneumothorax. This was personally interpreted by me, ED physician. CBC unremarkable. D-dimer unremarkable. BMP unremarkable. Troponin unremarkable. Suspect costochondritis. Patient was advised to take NSAIDs. Follow-up with PCP. Return precautions explained. She confirmed understand the plan. Patient stable to discharge home. She already has an appointment for breast examination by Dr. Da Silva. Impression: 1. Chest wall pain x 2 weeks 2. Suspect costochondritis Lab Data Labs: Laboratory Results - last 24 hr 09/29/24 11:15 WBC 4.9 RBC 4.92 Hgb 13.4 Hct 40.7 MCV 82.7 MCH 27.2 MCHC 32.9 RDW Std Deviation 38.5 RDW Coeff of José Manuel 12.8 Plt Count 259 MPV 10.0 Immature Gran % (Auto) 0.200 Neut % (Auto) 58.3 Lymph % (Auto) 31.3 Potter % (Auto) 5.3 Eos % (Auto) 4.1 Baso % (Auto) 0.8 Absolute Neuts (auto) 2.9 Absolute Lymphs (auto) 1.53 Nucleated RBC % 0 D-Dimer Quant (PE/DVT) 0.45 Sodium 141 Potassium 4.2 Chloride 105 Carbon Dioxide 25.4 Anion Gap 10 BUN 10 Creatinine 0.66 L Estim Creat Clear Calc 72.59 Est GFR (MDRD) Non-Af 101 BUN/Creatinine Ratio 15.7 Glucose 102 H Calcium 9.2 Troponin T High Sens < 6 Radiography Diagnostic Testing: Clinical Impression(s) from Imaging Studies Chest X-Ray 09/29/24 11:30 IMPRESSION: No acute pulmonary process, no interval change Reading Location: [facility] Discharge Plan Triage Chief Complaint: Chest Pain Other Complaint: Chest Other ED Midlevel Provider: Kiley Winters ED Provider: Torey Wright Dx/Rx/DC Orders Clinical Impression: Atypical chest pain, Costochondritis Instructions: ED Chest Wall Pain, Costochondritis Prescriptions: No Action cyclobenzaprine 10 mg tablet 10 mg PO QHS tramadol 50 mg tablet 50 mg PO Q6H PRN (Reason: pain) ibuprofen [Advil] 200 mg tablet 400 mg PO Q6H PRN (Reason: pain) Primary Care Provider: Shanda Rivas Referrals: Shanda Rivas NP-C [Primary Care Provider] - Activity Restrictions/Additional Instructions: All of your testing looks normal and ruled out blood clots, heart attacks, or life-threatening causes of chest pain. I think this is most likely costochondritis and musculoskeletal pain and recommend ibuprofen every 6 hours as needed and follow-up with your primary care doctor. Print Language: Japanese Disposition Disposition: Home, Self Care Discharge Date/Time: 09/29/24 12:40
[2024-09-29 11:22] LABS: Hematocrit 40.7 % (37-47); Hemoglobin 13.4 g/dL (12.0-15.0); Immature Granulocytes Count 0.010 X10^3/uL (0.0-0.0); Mean Corp Hgb Conc 32.9 g/dL (32-36); Mean Corpuscular Volume 82.7 fL (81-99); Mean Platelet Vol. 10.0 fl (6.2-12.0); NRBC Flagged by Analyzer 0 % (0-5); Platelet Count 259 K/mm3 (150-450); RBC Distribution Width CV 12.8 % (11.6-14.6); RBC Distribution Width SD 38.5 fl (35.1-43.9); Red Blood Count 4.92 M/mm3 (4.2-5.4); White Blood Count 4.9 K/mm3 (4.4-11.0)
[2024-09-29 11:25] VITALS: BP 136/83; PULSE 70; RESP 18; O2SAT 96
--- NOTE | 2024-09-29 11:30 | RAD_ITS ---
PROCEDURE: CHEST PA AND LATERAL 09/29/2024 REASON FOR EXAM: CHEST PAIN TECHNIQUE: CHEST PA AND LATERAL COMPARISON: 09/25/2024 FINDINGS: Hardware: EKG leads overlie the chest Heart: The heart size is normal. Mediastinum: The mediastinal contour is unremarkable. Lungs: The lungs are clear. Bones: The bones are unremarkable. RAD/Chest PA and Lateral IMPRESSION: No acute pulmonary process, no interval change Reading Location: [id number]
[2024-09-29 11:37] LABS: D-Dimer Quantitative (DVT/PE) 0.45 FEU/ug/m (0.27-0.49)
--- OUTSIDE RECORDS SUMMARY | 2024-09-29 11:51 | XMS RPT_ITS | CCD ---
Author Organization [facility] Care Team Providers Care Dental Therapist Name Role Phone Madie Metcalf MD Primary Care Provider PHYSICIAN, NONE Primary Care Physician Unavailab Dr. Madie Masters Primary Care Provider Dr. Saul Rodriguez Attending Provider Dr. Ted Barrientos Referring Provider [phone] Unavailable Primary Care Provider Dr. Madie Eli Primary Care Provider Dr. Saul Rodriguez Attending Provider Dr. Ted Barrientos Referring Provider [phone] TED BARRIENTOS DO Attending Unavailable PHYSICIAN, NONE Primary Care Unavailable Julia Heart Primary Care Provider UnavailDUTCH Khan Referring Unavailable DUTCH PARSONS Attending Unavailable Madie Metcalf MD Primary Care Provider [phone] Rob REAL ESTATE TRANSACTION COORDINATOR-C, Shanda Primary Care Provider [phone] Dr. Kristian Mir DO Attending Provider [phone] Dr. Kristian Mir DO Referring Provider Rob REAL ESTATE TRANSACTION COORDINATOR-C, Shanda Attending Provider [phone] Kristian Mir Referring Unavailable Kristian Mir Attending Unavailable Rob, Shanda Primary Care Unavailable Rob, Shanda Attending Unavailable Rob, Shanda Primary Care Unavailable Rob, Shanda Primary Care Unavailable Rob, Shanda Referring Unavailable Rob, Shanda Attending Unavailable Allergies Allergy Classification Reported Allergen(s) Allergy Type Date of Onset Reaction(s) Facility (20 sources) Amoxicillin; Translations: [AMOXICILLIN] Drug Allergy 03-17-19 [facility] Work Phone: (20 sources) Cephalexin; Translations: [CEPHALEXIN] Drug Allergy 11-03-19 [facility] Work Phone: (20 sources) cow milk allergenic extract; Translations: [MILK] Drug Allergy 03-17-19 [facility] Work Phone: (20 sources) Sulfamethoxazole / Trimethoprim; Translations: [SULFAMETHOXAZOLE-TR IMETHOPRIM] Drug Allergy 03-17-19 [facility] Work Phone: (20 sources) ENVIRONMENT [Other] Propensity to adverse reactions 03-17-19 [facility] Work Phone: (1 source) OTHER; Translations: [OTHER] Propensity to adverse reactions (disorder) 03-17-19 [facility] Medications Current Medications Medication Drug Class(es) Dates Sig (Normalized) Sig (Original) doxycycline hyclate 100 mg oral tablet (1 source) Tetracycline-class Drug Start: 02-11-2022 End: 02-18-2022 take 1 tablet by mouth twice daily doxycycline (VIBRA-TABS) 100 mg tablet Take 1 tablet by mouth twice daily for 7 days. 14 tablet 0 02/11/2022 02/18/2022 Active Comment on above: Take 1 tablet by amandeep twice daily for 7 days. iv contrast (will be provided with radiology test) (1 source) Start: 06-09-2021 End: 06-10-2021 iv contrast (will be provided with radiology test) Indications: Other intra-abdominal and pelvic swelling, mass and lump , Pelvic and perineal pain , Other specified dyspareunia , Chronic pelvic pain in female MRI Female Pelvis Inject, intravenously, once for 1 dose. No IV access, insert saline lock prior to the beginning of sedation, infusion, injection of imaging exam. Discontinue saline lock post exam. If Pt has a central line or IVAD, may access for administration according to line specific nursing protocol. Once exam is complete flush line and de-access according to line specific nursing protocol in the MR contrast administration guidelines link. 1 Each 0 06/09/2021 06/10/2021 Active Comment on above: MRI Female Pelvis In ject, intravenously, once for 1 dose. No IV access, insert saline lock prior to the beginning of sedation, infusion, injection of imaging exam. Discontinue saline lock post exam. If Pt has a central line or IVAD, may access for administration according to line specific nursing protocol. Once exam is complete flush line and de-access according to line specific nursing protocol in the MR contrast administration guidelines link. naproxen 500 mg oral tablet (4 sources) Nonsteroidal Anti-inflammatory Drug Start: 01-21-2021 take 1 tablet by mouth twice daily as needed for pain Naproxen (Naprosyn) 500 mg tablet Active 500 mg PO TWICE A DAY as needed for pain January 21, 2021 1:00am predniSONE 10 mg oral tablet (1 source) Start: 02-23-2022 End: 10-20-2022 predniSONE (DELTASONE) 10 mg tablet Indications: Tendonitis of wrist, left Take 2 tabs po BID for 2 days then 1 tab po BID for 2 days then 1/2 tab po BID for 2 days then 1/2 tab daily for 2 days then stop 15 tablet 0 02/23/2022 10/20/2022 Discontinued (Course of therapy completed) Comment on above: Take 2 tabs po BID f or 2 days then 1 tab po BID for 2 days then 1/2 tab po BID for 2 days then 1/2 tab daily for 2 days then stop traZODone hydrochloride 50 mg oral tablet (1 source) Serotonin Reuptake Inhibitor Start: 02-23-2022 End: 10-20-2022 take 0.5-2 tablets by mouth at bedtime as needed traZODone (DESYREL) 50 mg tablet Indications: Insomnia, unspecified type Take 0.5-2 tablets by mouth at bedtime as needed. 60 tablet 1 02/23/2022 10/20/2022 Discontinued (Discontinued by Patient) Comment on above: Take 0.5-2 tablets b y mouth at bedtime as needed. Completed/Discontinued Medications Medication Drug Class(es) Dates Sig (Normalized) Sig (Original) cephalexin 500 mg oral capsule (4 sources) Cephalosporin Antibacterial Start: 12-26-2020 End: 01-07-2021 take 1 capsule by mouth every six hours Cephalexin 500 MG capsule Discontinued 500 mg PO EVERY 6 HOURS December 26, 2020 12:00am January 07, 2021 3:48pm 12 hr cetirizine hydrochloride 5 mg / pseudoephedrine hydrochloride 120 mg extended release oral tablet (2 sources) alpha-Adrenergic Agonist, Histamine-1 Receptor Antagonist Start: 10-05-2018 End: 05-18-2021 take 1 tablet by mouth twice daily as needed cetirizine-pseudoep hedrine (ZYRTEC-D) 5-120 mg per tablet Indications: Middle ear effusion, bilateral Take 1 tablet by mouth twice daily as needed. 60 tablet 2 10/05/2018 05/18/2021 Discontinued Comment on above: Take 1 tablet by amandeep twice daily as needed. docusate sodium 100 mg oral capsule (5 sources) Start: 07-23-2021 take 1 capsule by mouth twice daily docusate sodium (COLACE) 100 mg capsule Take 1 capsule by mouth twice daily. 20 capsule 0 07/23/2021 Active Comment on above: Take [address] [facility] twice daily. fluticasone propionate 0.05 mg/actuat metered dose nasal spray (2 sources) Corticosteroid Start: 09-30-2018 End: 05-18-2021 take 2 spray(s) by mouth once daily fluticasone (FLONASE) 50 mcg/actuation nasal spray Indications: Fluid level behind tympanic membrane of both ears Use 2 Sprays in each nostril once daily. Rinse mouth after use. 1 Bottle 1 09/30/2018 05/18/2021 Discontinued Comment on above: Use 2 Sprays in each nostril once daily. Rinse mouth after use. ketorolac tromethamine 10 mg oral tablet (5 sources) Nonsteroidal Anti-inflammatory Drug, Cyclooxygenase Inhibitor Start: 07-23-2021 take 1 tablet by mouth every six hours as needed keTORolac (TORADOL) 10 mg tablet Take 1 tablet by mouth every 6 hours as needed. 15 tablet 0 07/23/2021 Active Comment on above: Take 1 tablet by amandeep every 6 hours as needed. lactobacillus acidophilus 460 mg oral capsule (2 sources) Start: 05-24-2020 End: 05-18-2021 Lactobacillus acidophilus (FLORAJEN ACIDOPHILUS) 460 mg (20 billion cell) cap Take 460 mg by mouth once daily. 30 capsule 05/24/2020 05/18/2021 Discontinued Comment on above: Take 460 mg by mouth once daily. ondansetron 4 mg disintegrating oral tablet (5 sources) Serotonin-3 Receptor Antagonist Start: 07-23-2021 take 1 tablet by mouth every eight hours as needed ondansetron orally disintegrating (ZOFRAN ODT) 4 mg disintegrating tablet Take 1 tablet by mouth every 8 hours as needed for nausea/vomiting. 15 tablet 0 07/23/2021 Active Comment on above: Take 1 tablet by amandeep th every 8 hours as needed for nausea/vomiting. Surgical Lubricant Jelly gel (14 sources) Start: 06-09-2021 Surgical Lubricant Jelly gel Indications: Other intra-abdominal and pelvic swelling, mass and lump , Pelvic and perineal pain , Other specified dyspareunia , Chronic pelvic pain in female For MRI Female Pelvis, MRI department to provide. Administer intra-vaginal Surgilube immediately prior the MRI procedure (total amount to patient toleranace). 5 g 0 06/09/2021 Active Comment on above: For MRI Female Pelvi s, MRI department to provide. Administer intra-vaginal Surgilube immediately prior the MRI procedure (total amount to patient toleranace). Problems Active Problems Problem Classification Problem Date Documented Da te Episodic/Chronic Disorders of lipid metabolism (20 sources) Hyperlipidemia; Translations: [Hyperlipidemia, unspecified] Onset: 2 06-01-2011 Chronic Esophageal disorders (20 sources) Gastroesophageal reflux disease; Translations: [Gastro-esophageal reflux disease without esophagitis] Onset: 4 02-19-2014 Chronic Genitourinary symptoms and ill-defined conditions (1 source) Genuine stress incontinence; Translations: [Stress incontinence (female) (male)] Chronic Genitourinary symptoms and ill-defined conditions (2 sources) Dysuria; Translations: [Dysuria] Episodic Immunizations and screening for infectious disease (4 sources) Patient encounter status; Translations: [Encounter for screening for human papillomavirus (HPV)] Episodic Menopausal disorders (1 source) Postmenopausal bleeding; Translations: [Postmenopausal bleeding] Chronic Mood disorders (1 source) Recurrent major depressive episodes, moderate ; Translations: [Major depressive disorder, recurrent, moderate] Onset: 2 02-23-2022 Chronic Nonspecific chest pain (1 source) Other chest pain; Translations: [Other chest pain] Onset: 5 Episodic Open wounds of extremities (4 sources) Laceration of finger; Translations: [Laceration without foreign body of unspecified finger without damage to nail, initial encounter] 01-03-2021 Episodic Other connective tissue disease (4 sources) Diastasis recti; Translations: [Separation of muscle (nontraumatic), other site] 01-24-2021 Episodic Other connective tissue disease (4 sources) Musculoskeletal disorder of the neck; Translations: [Separation of muscle (nontraumatic), other site] 01-24-2021 Episodic Comment on above: WITH DECUSSATION OF PLATYSMA MUSCLES Other connective tissue disease (3 sources) Tendinitis; Translations: [Enthesopathy, unspecified] 02-28-2022 Episodic Other endocrine disorders (20 sources) Hyperpituitarism; Translations: [Hyperfunction of pituitary gland, unspecified] Onset: 7 09-28-2006 Chronic Other female genital disorders (1 source) Dyspareunia; Translations: [Other specified dyspareunia] Chronic Other female genital disorders (2 sources) Pelvic congestion syndrome; Translations: [Other specified conditions associated with female genital organs and menstrual cycle] Episodic Other female genital disorders (1 source) Pelvic floor dysfunction; Translations: [Other specified conditions associated with female genital organs and menstrual cycle] Episodic Other gastrointestinal disorders (2 sources) Swelling; Translations: [Other intra-abdominal and pelvic swelling, mass and lump] Episodic Other gastrointestinal disorders (1 source) Constipation; Translations: [Constipation, unspecified] Episodic Other skin disorders (4 sources) Skin finding; Translations: [Cutis laxa senilis] 01-24-2021 Episodic Comment on above: ANTERIOR NECK AND LO WER ANTERIOR ABDOMINAL WALL Other skin disorders (4 sources) Skin striae; Translations: [Striae atrophicae] 01-24-2021 Episodic Comment on above: ABDOMINAL WALL Other skin disorders (4 sources) Excessive skin and subcutaneous tissue; Translations: [Excessive and redundant skin and subcutaneous tissue] 01-24-2021 Episodic Comment on above: ANTERIOR NECK AND LO WER ANTERIOR ABDOMINAL WALL Other upper respiratory disease (20 sources) Allergic rhinitis; Translations: [Allergic rhinitis, unspecified] 03-17-2005 Chronic Other upper respiratory infections (1 source) Bacterial sinusitis; Translations: [Chronic sinusitis, unspecified] Chronic Other upper respiratory infections (2 sources) Sore throat symptom; Translations: [Acute pharyngitis, unspecified] 10-20-2022 Episodic Residual codes; unclassified (4 sources) Procedure related finding; Translations: [Encounter for cosmetic surgery] 01-24-2021 Episodic Comment on above: ANTERIOR NECKLOWER A NTERIOR ABDOMINAL WALLDEFORMITY BREASTS WITH SALINE IMPLANTS PLACED IN 1994. Past or Other Problems Problem Classification Problem Date Documented Da te Episodic/Chronic Abdominal pain (13 sources) Pain in female pelvis; Translations: [Pelvic and perineal pain] Onset: 09-09-2013 Resolved: 05-26-2015 Episodic Allergic reactions (1 source) Solar degeneration; Translations: [Other skin changes due to chronic exposure to nonionizing radiation] Onset: 10-29-2012 Resolved: 05-26-2015 05-26-2015 Episodic Anxiety disorders (20 sources) Panic attack; Translations: [Panic disorder [episodic paroxysmal anxiety]] Onset: 02-19-2014 Resolved: 02-23-2022 02-19-2014 Chronic Deficiency and other anemia (20 sources) Iron deficiency anemia; Translations: [Iron deficiency anemia, unspecified] Onset: 11-27-2012 11-27-2012 Episodic Deficiency and other anemia (1 source) Other iron deficiency anemias; Translations: [Other iron deficiency anemia] Onset: 11-27-2012 Episodic Other and unspecified benign neoplasm (1 source) Melanocytic nevi of unspecified part of face; Translations: [Benign neoplasm of skin of other and unspecified parts of face] Onset: 10-29-2012 Resolved: 05-26-2015 05-26-2015 Episodic Other and unspecified benign neoplasm (1 source) Melanocytic nevus of trunk; Translations: [Melanocytic nevi of trunk] Onset: 10-29-2012 Resolved: 05-26-2015 05-26-2015 Episodic Other and unspecified benign neoplasm (1 source) Melanocytic nevus of neck; Translations: [Melanocytic nevi of scalp and neck] Onset: 10-29-2012 Resolved: 05-26-2015 05-26-2015 Episodic Other and unspecified benign neoplasm (1 source) Dermatofibroma; Translations: [Other benign neoplasm of skin of unspecified lower limb, including hip] Onset: 10-29-2012 Resolved: 05-26-2015 05-26-2015 Episodic Other and unspecified benign neoplasm (1 source) Senile angioma; Translations: [Hemangioma of skin and subcutaneous tissue] Onset: 10-29-2012 Resolved: 05-26-2015 05-26-2015 Episodic Other screening for suspected conditions (not mental disorders or infectious disease) (2 sources) Encounter for screening for diabetes mellitus; Translations: [Encounter for screening for lipoid disorders] Onset: 02-23-2022 Episodic Other skin disorders (1 source) Solar lentigo; Translations: [Other melanin hyperpigmentation] Onset: 10-29-2012 Resolved: 05-26-2015 05-26-2015 Episodic Other skin disorders (1 source) Seborrheic keratosis; Translations: [Other seborrheic keratosis] Onset: 10-29-2012 Resolved: 05-26-2015 05-26-2015 Episodic Residual codes; unclassified (20 sources) Family history of renal stone; Translations: [Family history of disorders of kidney and ureter] Onset: 11-12-2010 11-12-2010 Episodic Urinary tract infections (1 source) Urinary tract infection, site not specified; Translations: [Urinary tract infection, site not specified] Onset: 05-09-2024 Episodic Results Test Name Value Interpretation Reference Range Facility Chest PA and Lateralon 09-25 Chest PA and Lateral [facility] [address] [place] [id number] Chest PA and Lateral MR#: [id number] Acct: [id number] Name: CLARA MONTEIRO Rep #: [id number] : 1965 F 59 From: Kaushik Garduno MD PCP: BIGG Garcia Status: REG CLI Study: Chest PA and Lateral Date of Exam: 09/25/24 Exam# [id number] Ordering Dr: Shanda Rivas PROCEDURE: CHEST PA AND LATERAL 09/25/2024 REASON FOR EXAM: CHEST PAIN TECHNIQUE: CHEST PA AND LATERAL COMPARISON: None FINDINGS: Hardware: None Heart: The heart size is normal. Mediastinum: The mediastinal contour is unremarkable. Lungs: The lungs are clear. Bones: The bones are unremarkable. RAD/Chest PA and Lateral IMPRESSION: No acute pulmonary process Reading Location: [facility] CC: BIGG Rivas Edger Feeder: Signed Normal [facility] Comprehensive Metabolic Prof bay 08-13-2024 Albumin [Mass/Vol] 4.5 g/dL Normal 3.5-5.0 [facility] Comment on above: Performed By: #### L 500.4050, L500.4100, L100.0100 #### [facility] Laboratory [address] [place], [address] Albumin/Globulin [Mass ratio] 1.7 {ratio} Normal 0.9-2.4 [facility] Comment on above: Performed By: #### L 500.4050, L500.4100, L100.0100 #### [facility] [address] [place], [address] ALK PHOS 151 U/L High 35-104 [facility] Comment on above: Performed By: #### L 500.4050, L500.4100, L100.0100 #### [facility] [address] [place], [address] ALT [Catalytic activity/Vol] 15 U/L Normal <=34 [facility] Comment on above: Performed By: #### L 500.4050, L500.4100, L100.0100 #### [facility] [address] [place], [address] AST [Catalytic activity/Vol] 23 U/L Normal <=31 [facility] Comment on above: Performed By: #### L 500.4050, L500.4100, L100.0100 #### [facility] [address] [place], [address] Bilirubin [Mass/Vol] 0.35 mg/dL Normal 0.00-1.30 [facility] Comment on above: Performed By: #### L 500.4050, L500.4100, L100.0100 #### [facility] [address] [place], [address] BUN/CRE 23.1 RATIO High 10-20 [facility] Comment on above: Performed By: #### L 500.4050, L500.4100, L100.0100 #### [facility] [address] [place], [address] Calcium [Mass/Vol] 9.3 mg/dL Normal 7.6-11.0 [facility] Comment on above: Performed By: #### L 500.4050, L500.4100, L100.0100 #### [facility] [address] [place], [address] Chloride [Moles/Vol] 107 mmol/L Normal 98-108 [facility] Comment on above: Performed By: #### L 500.4050, L500.4100, L100.0100 #### [facility] [address] [place], [address] CO2 [Moles/Vol] 23.5 mmol/L Normal 21.0-32.0 [facility] Comment on above: Performed By: #### L 500.4050, L500.4100, L100.0100 #### [facility] [address] [place], [address] Creatinine [Mass/Vol] 0.61 mg/dL Low 0.70-1.20 [facility] Comment on above: Performed By: #### L 500.4050, L500.4100, L100.0100 #### [facility] [address] [place], [address] GAP 12 Normal 5-15 [facility] Comment on above: Performed By: #### L 500.4050, L500.4100, L100.0100 #### [facility] [address] [place], [address] GFR/1.73 sq M.predicted among non-blacks MDRD (S/P/Bld) [Vol rate/Area] 104 mL/min/{1.73_m2} Normal >60 [facility] Comment on above: Result Comment: mL/m in/1.73m2 CKD-EPI Creatinine Equation (2020) Performed By: #### L 500.4050, L500.4100, L100.0100 #### [facility] [address] [place], [address] Globulin (S) [Mass/Vol] 2.6 g/dL Normal 2.2-4.2 [facility] Comment on above: Performed By: #### L 500.4050, L500.4100, L100.0100 #### [facility] [address] [place], [address] Glucose [Mass/Vol] 83 mg/dL Normal 70-99 [facility] Comment on above: Performed By: #### L 500.4050, L500.4100, L100.0100 #### [facility] [address] [place], [address] Potassium [Moles/Vol] 4.0 mmol/L Normal 3.3-5.1 [facility] Comment on above: Performed By: #### L 500.4050, L500.4100, L100.0100 #### [facility] [address] [place], [address] Sodium [Moles/Vol] 143 mmol/L Normal 133-145 [facility] Comment on above: Performed By: #### L 500.4050, L500.4100, L100.0100 #### [facility] [address] [place], [address] T PROT 7.1 g/dL Normal 5.9-8.4 [facility] Comment on above: Performed By: #### L 500.4050, L500.4100, L100.0100 #### [facility] [address] [place], [address] Urea nitrogen [Mass/Vol] 14 mg/dL Normal 4-19 [facility] Comment on above: Performed By: #### L 500.4050, L500.4100, L100.0100 #### [facility] [address] [place], [address] Lipid Profileon 08-13-2024 CHOL:HDL 3.94 Normal [facility] Comment on above: Performed By: #### L 500.4050, L500.4100, L100.0100 #### [facility] [address] [place], [address] Cholesterol [Mass/Vol] 234 mg/dL High <=200 [facility] Comment on above: Result Comment: Chol esterol level, Desirable <200 mg/dL Borderline high cholesterol 200-239 mg/dL High cholesterol >=240 mg/dL Recommendations of the NCEP Adult Treatment Panel for the following risk-cutoff thresholds for the [place] population. Performed By: #### L 500.4050, L500.4100, L100.0100 #### [facility] [address] [place], [address] Cholesterol in HDL [Mass/Vol] 59 mg/dL Normal [facility] Comment on above: Result Comment: [place] onal Cholesterol Education Program (NCEP) guidelines: <40 mg/dL: Low HDL-cholesterol (major risk factor for CHD) >= 60 mg/dL: High HDL-cholesterol (negative risk factor for CHD) HDL-cholesterol is affected by a number of factors, e.g. smoking, exercise, hormones, sex and age. Performed By: #### L 500.4050, L500.4100, L100.0100 #### [facility] [address] [place], [address] Cholesterol in LDL [Mass/Vol] 150 mg/dL Normal [facility] Comment on above: Result Comment: Bord wnqwxp=918-539 mg/dL Higher Xmhc=325 mg/dL or greater Performed By: #### L 500.4050, L500.4100, L100.0100 #### [facility] [address] [place], [address] Cholesterol in VLDL [Mass/Vol] 25 mg/dL Normal 5-40 [facility] Comment on above: Performed By: #### L 500.4050, L500.4100, L100.0100 #### [facility] [address] [place], [address] Triglyceride [Mass/Vol] 123 mg/dL Normal [facility] Comment on above: Result Comment: The drugs N-Acetylcysteine and Metamizole may falsely depress this assay. Normal range: <150 mg/dL Borderline High: 150-199 mg/dL High: 200-499 mg/dL Very High: >500 mg/dL Performed By: #### L 500.4050, L500.4100, L100.0100 #### [facility] [address] [place], [address] Absolute lymphocyte countOrd ered By: Shanda Rivas on 08-12-2024 Lymphocytes Auto (Unsp spec) [#/Vol] 1.75 10*3/uL 0.83-4.51 [facility] Absolute neutrophil countOrd ered By: Shanda Rivas on 08-12-2024 Neutrophils (Bld) [#/Vol] 4.1 10*3/uL 2.0-7.7 [facility] Anion gap in Serum or Plasma Ordered By: Shanda Rivas on 08-12-2024 Anion gap [Moles/Vol] 12 mmol/L 5-15 [facility] Automated lymphocyte count a s percentage of total leukocytesOrdered By: Shanda Rivas on 08-12-2024 Lymphocytes/100 WBC Auto (Unsp spec) 27.3 % -41 [facility] BUN/creatinine ratioOrdered By: Shanda Rivas on 08-12-2024 Urea nitrogen/Creatinine [Mass ratio] 23.1 mg/mg High 10-20 [facility] Basophil percentageOrdered B y: Shanda Rivas on 08-12-2024 Basophils/100 WBC (Bld) 0.8 % 0-1 [facility] Bilirubin, totalOrdered By: Shanda Rivas on 08-12-2024 Bilirubin [Mass/Vol] 0.35 mg/dL 0.00-1.30 [facility] [facility] CBC W/Diff, Automatedon 07-28 Absolute Lymph 1.75 X10 3/uL Normal 0.83-4.51 [facility] Comment on above: Performed By: #### L 500.4050, L500.4100, L100.0100 #### [facility] Laboratory [address] [place], [address] Absolute Neut 4.1 X10 3/uL Normal 2.0-7.7 [facility] Comment on above: Performed By: #### L 500.4050, L500.4100, L100.0100 #### [facility] [address] [place], [address] Basophils/100 WBC (Bld) 0.8 % Normal 0-1 [facility] Comment on above: Performed By: #### L 500.4050, L500.4100, L100.0100 #### [facility] [address] [place], [address] Eosinophils/100 WBC (Bld) 2.3 % Normal 0-5 [facility] Comment on above: Performed By: #### L 500.4050, L500.4100, L100.0100 #### [facility] [address] [place], [address] Erythrocyte distribution width (RBC) [Ratio] 13.2 % Normal 11.6-14.6 [facility] Comment on above: Performed By: #### L 500.4050, L500.4100, L100.0100 #### [facility] [address] [place], [address] Hematocrit (Bld) [Volume fraction] 38.7 % Normal 37-47 [facility] Comment on above: Performed By: #### L 500.4050, L500.4100, L100.0100 #### [facility] [address] [place], [address] Hemoglobin (Bld) [Mass/Vol] 12.4 g/dL Normal 12.0-15.0 [facility] Comment on above: Performed By: #### L 500.4050, L500.4100, L100.0100 #### [facility] [address] [place], [address] IG% 0.300 Normal 0.0-0.9 [facility] Comment on above: Result Comment: IG% - Immature Granulocytes (promyelocytes, myelocytes and metamyelocytes) > 1% indicates that a LEFT SHIFT is Present. Performed By: #### L 500.4050, L500.4100, L100.0100 #### [facility] [address] [place], [address] Lymphocytes/100 WBC (Bld) 27.3 % Normal 19-41 [facility] Comment on above: Performed By: #### L 500.4050, L500.4100, L100.0100 #### [facility] [address] [place], [address] MCH (RBC) [Entitic mass] 27.4 pg Normal 27.0-32.0 [facility] Comment on above: Performed By: #### L 500.4050, L500.4100, L100.0100 #### [facility] [address] [place], [address] MCHC (RBC) [Mass/Vol] 32.0 g/dL Normal 32-36 [facility] Comment on above: Performed By: #### L 500.4050, L500.4100, L100.0100 #### [facility] [address] [place], [address] MCV (RBC) [Entitic vol] 85.4 fL Normal 81-99 [facility] Comment on above: Performed By: #### L 500.4050, L500.4100, L100.0100 #### [facility] [address] [place], [address] Monocytes/100 WBC (Bld) 4.8 % Normal 0-10 [facility] Comment on above: Performed By: #### L 500.4050, L500.4100, L100.0100 #### [facility] [address] [place], [address] Neutrophils/100 WBC (Bld) 64.5 % Normal 47-70 [facility] Comment on above: Performed By: #### L 500.4050, L500.4100, L100.0100 #### [facility] [address] [place], [address] Nucleated RBC (Bld) [#/Vol] 0 10*3/uL Normal 0-5 [facility] Comment on above: Performed By: #### L 500.4050, L500.4100, L100.0100 #### [facility] [address] [place], [address] Platelet mean volume (Bld) [Entitic vol] 10.7 fL Normal 6.2-12.0 [facility] Comment on above: Performed By: #### L 500.4050, L500.4100, L100.0100 #### [facility] [address] [place], [address] Platelets (Bld) [#/Vol] 327 10*3/uL Normal 150-450 [facility] Comment on above: Performed By: #### L 500.4050, L500.4100, L100.0100 #### [facility] [address] [place], [address] RBC (Bld) [#/Vol] 4.53 10*6/uL Normal 4.2-5.4 [facility] Comment on above: Performed By: #### L 500.4050, L500.4100, L100.0100 #### [facility] [address] [place], [address] RDW SD 41.0 fl Normal 35.1-43.9 [facility] Comment on above: Performed By: #### L 500.4050, L500.4100, L100.0100 #### [facility] [address] [place], [address] WBC (Bld) [#/Vol] 6.4 10*3/uL Normal 4.4-11.0 [facility] Comment on above: Performed By: #### L 500.4050, L500.4100, L100.0100 #### [facility] [address] [place], [address] Calculated very low density lipoprotein (VLDL) cholesterol measurementOrdered By: Shanda Rivas on 08-12-2024 Calculated very low density lipoprotein (VLDL) cholesterol measurement 25 mg/dL 5-40 [facility] Carbon dioxide, total [Moles /volume] in Central venous bloodOrdered By: Shanda Rivas on 08-12-2024 CO2 [Moles/Vol] 23.5 mmol/L 21.0-32.0 [facility] Chloride assayOrdered By: Ra feng Rivas on 08-12-2024 Chloride [Moles/Vol] 107 mmol/L 98-108 [facility] Eosinophil percentageOrdered By: Shanda Rivas on 08-12-2024 Eosinophils/100 WBC (Bld) 2.3 % 0-5 [facility] Erythrocyte distribution wid th ratioOrdered By: Shanda Rivas on 08-12-2024 Erythrocyte distribution width (RBC) [Ratio] 13.2 % 11.6-14.6 [facility] Erythrocyte distribution wid th standard deviationOrdered By: Shanda Rivas on 08-12-2024 Erythrocyte distribution width (RBC) [Ratio] 41.0 fl 35.1-43.9 [facility] Glomerular filtration rate ( GFR) estimation/1.73 sq m using serum, plasma, or whole bOrdered By: Shandalida Rivas on 08-12-2024 GFR/1.73 sq M.predicted among non-blacks MDRD (S/P/Bld) [Vol rate/Area] 104 mL/min/{1.73_m2} >60 [facility] Comment on above: mL/min/1.73m2 CKD-EP I Creatinine Equation (2020) Hematocrit Auto (Bld) [Volum e fraction]Ordered By: Shandalida Rivas on 08-12-2024 Hematocrit (Bld) [Volume fraction] 38.7 % 37-47 [facility] Hemoglobin measurementOrdere d By: Shandalida Rivas on 08-12-2024 Hemoglobin (Bld) [Mass/Vol] 12.4 g/dL 12.0-15.0 [facility] Immature granulocytes/100 WB C Auto (Bld)Ordered By: Shandalida Rivas on 08-12-2024 Immature granulocytes/100 WBC (Bld) 0.300 % 0.0-0.9 [facility] Comment on above: IG% - Immature Granu locytes (promyelocytes, myelocytes and metamyelocytes) > 1% indicates that a LEFT SHIFT is Present. LDL calc ser/plasOrdered By: Shanda Rob on 08-12-2024 Cholesterol in LDL [Mass/Vol] 150 mg/dL [facility] Comment on above: Cjsioakgyq=728-438 m g/dL & Higher Jjbm=909 mg/dL or greater Laboratory - Chemistry and C hemistry - challengeOrdered By: [place] Rob on 08-12-2024 AST [Catalytic activity/Vol] 23 U/L <32 [facility] MCV (mean corpuscular volume ) determinationOrdered By: Shandalida Rivas on 08-12-2024 MCV (RBC) [Entitic vol] 85.4 fL 81-99 [facility] Mean corpuscular hemoglobin (MCH) determinationOrdered By: [facility] on 08-12-2024 MCH (RBC) [Entitic mass] 27.4 pg 27.0-32.0 [facility] Mean corpuscular hemoglobin concentration (MCHC) determinationOrdered By: Shanda Rivas on 08-12-2024 MCHC (RBC) [Mass/Vol] 32.0 g/dL 32-36 [facility] Mean platelet volume determi nationOrdered By: Shanda Rivas on 08-12-2024 Platelet mean volume (Bld) [Entitic vol] 10.7 fL 6.2-12.0 [facility] Monocyte percentageOrdered B y: Shanda Rivas on 08-12-2024 Monocytes/100 WBC (Bld) 4.8 % 0-10 [facility] Neutrophil percentageOrdered By: Shanda Rivas on 08-12-2024 Neutrophils/100 WBC (Bld) 64.5 % 47-70 [facility] Nucleated red blood cell per centageOrdered By: Shanda Rivas on 08-12-2024 Nucleated RBC/100 WBC (Bld) [Ratio] 0 % 0-5 [facility] Platelet countOrdered By: Ra feng Rivas on 08-12-2024 Platelets (Bld) [#/Vol] 327 10*3/uL 150-450 [facility] Potassium measurement (mass/ volume)Ordered By: Shanda Rivas on 08-12-2024 Potassium (Unsp spec) [Mass/Vol] 4.0 mmol/L 3.3-5.1 [facility] RBC Auto (Bld) [#/Vol]Ordere d By: Shanda Rivas on 08-12-2024 RBC (Bld) [#/Vol] 4.53 10*6/uL 4.2-5.4 [facility] Screening total cholesterol/ high density lipoprotein (HDL) cholesterol ratioOrdered By: Shanda Rivas on 08-12-2024 Cholesterol.total/Choles terol in HDL [Mass ratio] 3.94 {ratio} [facility] Serum creatinine measurement (mass/volume)Ordered By: Shanda Rivas on 08-12-2024 Creatinine [Mass/Vol] 0.61 mg/dL Low 0.70-1.20 [facility] Serum globulin measurementOr dered By: Shanda Rivas on 08-12-2024 Globulin (S) [Mass/Vol] 2.6 g/dL 2.2-4.2 [facility] Serum glucose measurement (m ass/volume)Ordered By: Shanda Rivas on 08-12-2024 Glucose [Mass/Vol] 83 mg/dL 70-99 [facility] Serum or plasma alanine luo otransferase (ALT) measurementOrdered By: Shanda Rivas on 08-12-2024 ALT [Catalytic activity/Vol] 15 U/L <35 [facility] Serum or plasma albumin la urement (mass/volume)Ordered By: Shanda Rivas on 08-12-2024 Albumin [Mass/Vol] 4.5 g/dL 3.5-5.0 [facility] Serum or plasma albumin/glob ulin mass ratioOrdered By: Shandalida Rivas on 08-12-2024 Albumin/Globulin [Mass ratio] 1.7 {ratio} 0.9-2.4 [facility] Serum or plasma alkaline ct sphatase measurementOrdered By: Shanda Rivas on 08-12-2024 ALP [Catalytic activity/Vol] 151 U/L High 35-104 [facility] Serum or plasma calcium la urement (mass/volume)Ordered By: Shanda Rivas on 08-12-2024 Calcium [Mass/Vol] 9.3 mg/dL 7.6-11.0 [facility] Serum or plasma cholesterol in HDL measurement (mass/volume)Ordered By: Shanda Rivas on 08-12-2024 Cholesterol in HDL [Mass/Vol] 59 mg/dL >40 [facility] Comment on above: National Cholesterol Education Program (NCEP) guidelines:<40 mg/dL: Low HDL-cholesterol (major risk factor for CHD)>= 60 mg/dL: High HDL-cholesterol (negative risk factor for CHD)HDL-cholesterol is affected by a number of factors, e.g. smoking, exercise, hormones, sex and age. Serum or plasma cholesterol measurement (mass/volume)Ordered By: Shanda Rivas on 08-12-2024 Cholesterol [Mass/Vol] 234 mg/dL High <201 [facility] Comment on above: Cholesterol level, D esirable <200 mg/dLBorderline high cholesterol 200-239 mg/dLHigh cholesterol >=240 mg/dLRecommendations of the NCEP Adult Treatment Panel for the following risk-cutoff thresholds for the [place] population. Serum or plasma urea nitroge n measurement (mass/volume)Ordered By: Shanda Rivas on 08-12-2024 Urea nitrogen [Mass/Vol] 14 mg/dL 4-19 [facility] Sodium levelOrdered By: Neli miguel Rob on 08-12-2024 Sodium [Moles/Vol] 143 mmol/L 133-145 [facility] Total proteinOrdered By: Xiomara lida Rob on 08-12-2024 Protein [Mass/Vol] 7.1 g/dL 5.9-8.4 [facility] Triglycerides measurementOrd ered By: Shanda Rivas on 08-12-2024 Triglyceride [Mass/Vol] 123 mg/dL <199 [facility] Comment on above: The drugs N-Acetylcy steine and Metamizole may falsely depress this assay. Normal range: <150 mg/dLBorderline High: 150-199 mg/dLHigh: 200-499 mg/dLVery High: >500 mg/dL White blood cell (WBC) count Ordered By: Shanda Rivas on 08-12-2024 WBC (Bld) [#/Vol] 6.4 10*3/uL 4.4-11.0 [facility] Urine Cultureon 04-27-2024 [facility] Presumptive E. coli Mikado Count 80,000-100,000 Presumptive E. coli: REACTION Ampicillin Islt EFREN >=32 Ampicillin+Sulbac Islt EFREN 16 I Cefepime Islt EFREN <=0.12 S cefTRIAXone Islt EFREN <=0.25 S Ciprofloxacin Islt EFREN <=0.06 S B-Lactamase Extended Susc Islt NEG Gentamicin Islt EFREN <=1 S levoFLOXacin Islt EFREN <=0.12 S Meropenem Islt EFREN <=0.25 S Nitrofurantoin Islt EFREN <=16 S Pip+Tazo Islt EFREN <=4 S TMP SMX Islt EFREN <=20 S Normal [facility] Comment on above: Performed By: #### M 100.2830 #### [facility] Laboratory [address] [place], [place] [address] [place], [place], [id number] Urine cultureOrdered By: Marta Mir on 04-25-2024 Bacteria identified Cx Nom (U) Presumptive E. coli Abnormal [facility] CNOVon 10-20-2022 CNOV Office Visit (UCWSTR) ---- CLARA MONTEIRO ([id number]) 1965 F Date Time Provider Department 10/20/22 7:15 AM ISAAC RAMÍREZ [facility] During your visit today, we recorded the following information about you: Temperature Pulse Respiration Blood pressure 99.2 degrees 84/minute 16/minute 122/78 Weight 57.7 kg Isaac Ramírez MD 10/20/2022 7:30 AM Signed Patient presents with: Sore Throat: Congestion head x 3 days HPI: Feeling sick for 4 days. Positive symptoms: drainage Cough, Sore throat, Sinus pressure, Nasal Congestion, Rhinorrhea, Post nasal drainage, Fever, Negative symptoms: Shortness of breath, Chest tightness, change in baseline body aches, OTC: Nyquil, Dayquil, Ibuprofen MEDICATIONS: No current outpatient medications on file. No current facility-administer ed medications for this visit. ALLERGIES: ALLERGIES Allergen Reactions Amoxicillin yeast infection Environment [Other] weeds, dust mold trees=sinus infection Keflex [Cephalexin] yeast infection Milk nasal congestion Septra [Sulfamethox* yeast infection VITALS: BP 122/78 Pulse 84 Temp 37.3 ?C (99.2 ?F) Resp 16 Wt 57.7 kg (127 lb 3.2 oz) LMP 08/05/2018 (Within Days) SpO2 97% BMI 23.27 kg/m? PHYSICAL EXAM: GEN: mildly ill appearing HEENT: PERRL, EOMI, conjunctiva clear Ears: canals clear. TMs without erythema, bulge, or effusion Sinuses: non-tender frontal sinus, non-tender maxillary sinuses Throat: moist mucous membranes, mild erythema, no exudate Neck: supple, no thyromegaly, no lymphadenopathy HEART: regular rate and rhythm, no murmurs LUNGS: clear to auscultation, no wheezes or crackles, no increased WOB ASSESSMENT/PLAN: 1. Sore throat - ICD9: 462, ICD10: J02.9 (primary diagnosis) 2. URI, acute - ICD9: 465.9, ICD10: J06.9 - STREP A MOLECULAR (POC) - suspect viral URI; declines COVID testing. - Discussed supportive care treatment with rest, cold medicine, and analgesia. Isaac Ramírez MD Allergies As of Date: 10/20/2022 Noted Allergy Reaction AMOXICILLIN 03/17/2005 Comments: yeast infection ENVIRONMENT [Other] 03/17/2005 Comments: weeds, dust mold trees=sinus infection KEFLEX (CEPHALEXIN) 11/02/2005 Comments: yeast infection MILK 03/17/2005 Comments: nasal congestion SEPTRA (SULFAMETHOXAZOLE-T RIMETHO*03/17/2005 Comments: yeast infection Date Reviewed: 10/20/2022 Reviewed by: Terra Dumont LPN - Fully Assessed Reason for Visit: Sore Throat [200] Cmt: Congestion head x 3 days Primary Visit Diagnosis:Sore throat [J02.9] Other Visit Diagnosis:URI, acute [J06.9] Order(s):STREP A MOLECULAR (POC) [8911910] Order #: [id number] 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] 09/28/2006 Family history of kidney stones [Z84.1] 11/12/2010 Hyperlipidemia [E78.5] 06/01/2011 Melanocytic nevus of face [D22.30] 10/29/2012 05/26/2015 Melanocytic nevi of trunk [D22.5] 10/29/2012 05/26/2015 Melanocytic nevus of neck [D22.4] 10/29/2012 05/26/2015 Solar lentigo [L81.4] 10/29/2012 05/26/2015 Other seborrheic keratosis [L82.1] 10/29/2012 05/26/2015 Actinic skin damage [L57.8] 10/29/2012 05/26/2015 Dermatofibroma of thigh [D23.70] 10/29/2012 05/26/2015 Louis angioma [D18.01] 10/29/2012 05/26/2015 Iron deficiency anemia [D50.9] 11/27/2012 Abdominal pain [R10.9] 09/09/2013 05/26/2015 GERD (gastroesophageal reflux disease) [K21.9] 02/19/2014 Panic attacks [F41.0] 02/19/2014 02/23/2022 Moderate episode of recurrent major depressive *02/23/2022 Medications Discontinued During This Encounter Prescriptions - predniSONE (DELTASONE) 10 mg tablet (Discontinued) Reported on 10/20/2022 - traZODone (DESYREL) 50 mg tablet (Discontinued) Reported on 10/20/2022 Encounter Status:Closed by ISAAC RAMÍREZ on 10/20/22 Normal [facility] STREP A MOLECULAR (POC)on Procedural Control Valid [facility] Strep A (POCT) Negative Negative [facility] CBC panel Auto (Bld)on 02-23 Erythrocyte distribution width (RBC) [Ratio] 13.6 % Normal 11.5-15.0 [facility] Comment on above: Order Comment: Speci men Type: BLOOD SPECIMEN Ordering Facility: [facility] Address: [address] [address] Performed By: #### 5 8410-2 #### [facility] CLIA [id number] [address] [place] [address] [place] Hematocrit (Bld) [Volume fraction] 43.2 % Normal 36.0-46.0 [facility] Comment on above: Order Comment: Speci men Type: BLOOD SPECIMEN Ordering Facility: [facility] Address: [address] [address] Performed By: #### 5 8410-2 #### [facility] CLIA [id number] [address] [place] [address] [place] Hemoglobin (Bld) [Mass/Vol] 13.9 g/dL Normal 11.5-15.5 [facility] Comment on above: Order Comment: Speci men Type: BLOOD SPECIMEN Ordering Facility: [facility] Address: [address] Performed By: #### 5 8410-2 #### [facility] CLIA [id number] [address] [place] [address] [place] MCH (RBC) [Entitic mass] 28.4 pg Normal 26.0-34.0 [facility] Comment on above: Order Comment: Speci men Type: BLOOD SPECIMEN Ordering Facility: [facility] Address: [address] Performed By: #### 5 8410-2 #### [facility] CLIA [id number] [address] [place] [address] [place] MCHC (RBC) [Mass/Vol] 32.2 g/dL Normal 30.5-36.0 [facility] Comment on above: Order Comment: Speci men Type: BLOOD SPECIMEN Ordering Facility: [facility] Address: [address] Performed By: #### 5 8410-2 #### [facility] CLIA [id number] [address] [place] [address] [place] MCV (RBC) [Entitic vol] 88.3 fL Normal 80.0-100.0 [facility] Comment on above: Order Comment: Speci men Type: BLOOD SPECIMEN Ordering Facility: [facility] Address: [address] Performed By: #### 5 8410-2 #### [facility] CLIA [id number] [address] [place] [address] [place] Nucleated RBC (Bld) [#/Vol] 10*3/uL Normal <0.01 [facility] Comment on above: Order Comment: Speci men Type: BLOOD SPECIMEN Ordering Facility: [facility] Address: [address] Performed By: #### 5 8410-2 #### [facility] CLIA [id number] [address] [place] [address] [place] Platelet mean volume (Bld) [Entitic vol] 10.4 fL Normal 9.0-12.7 [facility] Comment on above: Order Comment: Speci men Type: BLOOD SPECIMEN Ordering Facility: [facility] Address: [address] [place] [address] Performed By: #### 5 8410-2 #### [facility] CLIA [id number] [address] [place] [address] [place] Platelets (Bld) [#/Vol] 246 10*3/uL Normal 150-400 [facility] Comment on above: Order Comment: Speci men Type: BLOOD SPECIMEN Ordering Facility: [facility] Address: [address] [place], [place] [address] Performed By: #### 5 8410-2 #### [facility] CLIA [id number] [address] [place] [address] [place] RBC (Bld) [#/Vol] 4.89 10*6/uL Normal 3.90-5.20 [facility] Comment on above: Order Comment: Speci men Type: BLOOD SPECIMEN Ordering Facility: [facility] Address: [address] [place] [phone] Performed By: #### 5 8410-2 #### [facility] CLIA [id number] [address] [place] [address] [place] WBC (Bld) [#/Vol] 4.63 10*3/uL Normal 3.70-11.00 [facility] Comment on above: Order Comment: Speci men Type: BLOOD SPECIMEN Ordering Facility: [facility] Address: [address] [place] [phone] Performed By: #### 5 8410-2 #### [facility] CLIA [id number] [address] [id number] [place] CNOVon 02-23-2022 CNOV Office Visit (INTMWS) ---- CLARA MONTEIRO ([id number]) 1965 F Date Time Provider Department 02/23/22 3:00 PM DUTCH PARSOSN During your visit today, we recorded the following information about you: Pulse Blood pressure Weight Height 77/minute 104/70 57.6 kg 1.575 m Dutch Parsons APRN.CNP 02/23/2022 3:53 PM Signed SUBJECTIVE Clara Monteiro is a 56 year old female here today to establish care. Chief Complaint Patient presents with: Establish Care Sleep Problem: trouble sleep has tried z-quil, Sleep aid which caused weird dreams and feeling of groggy the next day. Melatonin gives her a dry throat but sleeps ok Trauma: injury to left wrist on [place] HPI Clara Monteiro is a 56 year old female who presents today to establish care. She is having some issues with not sleeping well. She has tried taking melatonin a week or so, helped but dries her out. Tried nyquil, z-quil. Left her feeling groggy. Issues with sleep for a while, years, recently worse. Daughter a year and half ago so worse since then. Trouble with staying asleep and falling asleep. Mind is racing, trouble to shut off at night. Some depression. Denies thoughts of harming self, harming others or suicide and no hallucinations. She really does not feel she is very anxious. Not interested in counseling, has support with her family. Previously tried medications from Dr. Metcalf for mood and did not like the way it made her feel. Thinks this was for mood. Since she has had left wrist pain. She is left handed. She peeled a large number of potatoes. Has been icing it some. Pain is aggravated with use of the left wrist/hand which she does at work. History of high cholesterol and anemia. Her medications were reviewed today and her list is now up to date. Medications Current Outpatient Medications Medication Sig traZODone (DESYREL) 50 mg tablet Take 0.5-2 tablets by mouth at bedtime as needed. predniSONE (DELTASONE) 10 mg tablet Take 2 tabs po BID for 2 days then 1 tab po BID for 2 days then 1/2 tab po BID for 2 days then 1/2 tab daily for 2 days then stop No current facility-administer ed medications for this visit. 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 Respiratory: Negative. Cardiovascular: Negative. Musculoskeletal: Positive for arthralgias and myalgias. Psychiatric/Behavio ral: Positive for dysphoric mood and sleep disturbance. Negative for self-injury and suicidal ideas. The patient is not nervous/anxious. OBJECTIVE BP 104/70 Pulse 77 Ht 5' 2 (1.58m) Wt 127 lb (57.6kg) SpO2 99% LMP 08/05/2018 BMI 23.22 kg/(m2). Physical Exam Vitals and nursing note reviewed. Constitutional: General: She is awake. She is not in acute distress. Appearance: Normal appearance. She is well-developed and well-groomed. She is not ill-appearing, toxic-appearing or diaphoretic. HENT: Head: Normocephalic. Right Ear: External ear normal. Left Ear: External ear normal. Nose: Nose normal. Eyes: General: Vision grossly intact. Conjunctiva/sclera: Conjunctivae normal. Pupils: Pupils are equal, round, and reactive to light. Neck: Vascular: No JVD. Trachea: Trachea normal. Cardiovascular: Rate and Rhythm: Normal rate and regular rhythm. Pulses: Normal pulses. Heart sounds: Normal heart sounds. No murmur heard. Pulmonary: Effort: Pulmonary effort is normal. No accessory muscle usage, prolonged expiration or respiratory distress. Breath sounds: Normal breath sounds. Musculoskeletal: Cervical back: Neck supple. Skin: General: Skin is warm and dry. Capillary Refill: Capillary refill takes less than 2 seconds. Neurological: General: No focal deficit present. Mental Status: She is alert and oriented to person, place, and time. Mental status is at baseline. Psychiatric: Attention and Perception: Attention and perception normal. Mood and Affect: Mood and affect normal. Speech: Speech normal. Behavior: Behavior normal. Behavior is cooperative. Thought Content: Thou (more content not included)... Normal [facility] Comprehensive metabolic 2000 panelon 02-23-2022 Albumin [Mass/Vol] 4.7 g/dL Normal 3.9-4.9 [facility] Comment on above: Order Comment: Speci men Type: BLOOD SPECIMEN Ordering Facility: [facility] Address: [address] [address] Performed By: #### 2 4323-8 #### [facility] CLIA [id number] [address] [place] [address] [place] ALP [Catalytic activity/Vol] 118 U/L Normal 34-123 [facility] Comment on above: Order Comment: Speci men Type: BLOOD SPECIMEN Ordering Facility: [facility] Address: [address] [address] Performed By: #### 2 4323-8 #### [facility] CLIA [id number] [address] [place] [address] [place] ALT [Catalytic activity/Vol] 20 U/L Normal 7-38 [facility] Comment on above: Order Comment: Michellei men Type: BLOOD SPECIMEN Ordering Facility: [facility] Address: [address] [address] Performed By: #### 2 4323-8 #### [facility] CLIA [id number] [address] [place] [address] [place] Anion gap [Moles/Vol] 10 mmol/L Normal 9-18 [facility] Comment on above: Order Comment: Speci men Type: BLOOD SPECIMEN Ordering Facility: [facility] Address: [address] [place] [address] Performed By: #### 2 4323-8 #### [facility] CLIA [id number] [address] [place] [address] [place] AST [Catalytic activity/Vol] 27 U/L Normal 13-35 [facility] Comment on above: Order Comment: Speci men Type: BLOOD SPECIMEN Ordering Facility: [facility] Address: [address] [place] [address] Performed By: #### 2 4323-8 #### [facility] CLIA [id number] [address] [place] [address] [place] Bilirubin [Mass/Vol] 0.5 mg/dL Normal 0.2-1.3 [facility] Comment on above: Order Comment: Speci men Type: BLOOD SPECIMEN Ordering Facility: [facility] Address: [address] [place], [place] [address] Performed By: #### 2 4323-8 #### [facility] CLIA [id number] [address] [place] [address] [place] Calcium [Mass/Vol] 9.4 mg/dL Normal 8.5-10.2 [facility] Comment on above: Order Comment: Speci men Type: BLOOD SPECIMEN Ordering Facility: [facility] Address: [address] [place] [address] Performed By: #### 2 4323-8 #### [facility] CLIA [id number] [address] [id number] [place] Chloride [Moles/Vol] 103 mmol/L Normal 97-105 [facility] Comment on above: Order Comment: Speci men Type: BLOOD SPECIMEN Ordering Facility: [facility] Address: [address] [place] [address] Performed By: #### 2 4323-8 #### [facility] CLIA [id number] [address] [place] [address] [place] CO2 [Moles/Vol] 27 mmol/L Normal 22-30 [facility] Comment on above: Order Comment: Speci men Type: BLOOD SPECIMEN Ordering Facility: [facility] Address: [address] [place] [address] Performed By: #### 2 4323-8 #### [facility] CLIA [id number] [address] [place] [address] [place] [facility] Creatinine [Mass/Vol] 0.68 mg/dL Normal 0.58-0.96 [facility] Comment on above: Order Comment: Speci men Type: BLOOD SPECIMEN Ordering Facility: [facility] Address: [address] [place] [address] Performed By: #### 2 4323-8 #### [facility] CLIA [id number] [address] [place] [address] [place] ESTIMATED GLOMERULAR FILTRATION RATE 102 mL/min/1.73m??? Normal >=60 [facility] Comment on above: Order Comment: Speci men Type: BLOOD SPECIMEN Ordering Facility: [facility] Address: [address] [place] [address] Result Comment: Elen mated Glomerular Filtration Rate (eGFR) is calculated using the 2020 CKD-EPI creatinine equation. This equation utilizes serum creatinine, sex, and age as parameters. The creatinine assay has traceable calibration to isotope dilution-mass spectrometry. Refer to KDIGO guidelines for clinical interpretation. In patients with unstable renal function, e.g. those with acute kidney injury, the eGFR may not accurately reflect actual GFR. Performed By: #### 2 4323-8 #### [facility] CLIA [id number] [address] [place] [address] [place] Glucose [Mass/Vol] 81 mg/dL Normal 74-99 [facility] Comment on above: Order Comment: Spectao men Type: BLOOD SPECIMEN Ordering Facility: [facility] Address: [address] [place] [address] Result Comment: The [place] Diabetes Association (ADA) provides guidance for cutoff values for fasting glucose and random glucose. The ADA defines fasting as no caloric intake for at least 8 hours. Fasting plasma glucose results between 100 to 125 mg/dL indicate increased risk for diabetes (prediabetes). Fasting plasma glucose results greater than or equal to 126 mg/dL meet the criteria for diagnosis of diabetes. In the absence of unequivocal hyperglycemia, results should be confirmed by repeat testing. In a patient with classic symptoms of hyperglycemia or hyperglycemic crisis, random plasma glucose results greater than or equal to 200 mg/dL meet the criteria for diagnosis of diabetes. Reference: Standards of Medical Care in Diabetes 2016, [place] Diabetes Association. Diabetes Care. 2016.39(Suppl 1). Performed By: #### 2 4323-8 #### [facility] CLIA [id number] [address] [place] [address] [place] Potassium [Moles/Vol] 3.8 mmol/L Normal 3.7-5.1 [facility] Comment on above: Order Comment: Romy whitehead Type: BLOOD SPECIMEN Ordering Facility: [facility] Address: [address] [place] [address] Performed By: #### 2 4323-8 #### [facility] CLIA [id number] [address] [place] [address] [place] Protein [Mass/Vol] 7.2 g/dL Normal 6.3-8.0 [facility] Comment on above: Order Comment: Romy whitehead Type: BLOOD SPECIMEN Ordering Facility: [facility] Address: [address] [place] [address] Performed By: #### 2 4323-8 #### [facility] CLIA [id number] [facility] [place] [address] [place] Sodium [Moles/Vol] 140 mmol/L Normal 136-144 [facility] Comment on above: Order Comment: Speci men Type: BLOOD SPECIMEN Ordering Facility: [facility] Address: [address] [place], [place] [address] Performed By: #### 2 4323-8 #### [facility] CLIA [id number] [address] [place] [address] [place] Urea nitrogen [Mass/Vol] 14 mg/dL Normal 7-21 [facility] Comment on above: Order Comment: Speci men Type: BLOOD SPECIMEN Ordering Facility: [facility] Address: [address] [place] [address] Performed By: #### 2 4323-8 #### [facility] CLIA [id number] [address] [place] [address] [place] Lipid 1996 panelon 2 Cholesterol [Mass/Vol] 230 mg/dL High <200 [facility] Comment on above: Order Comment: Speci men Type: BLOOD SPECIMEN Ordering Facility: [facility] Address: [address] [place], [place] [address] Result Comment: <200 mg/dL, Desirable 200-239 mg/dL, Borderline high >239 mg/dL, High Performed By: #### 2 4331-1 #### [facility] CLIA [id number] [address] [place] [address] [place] Cholesterol in HDL [Mass/Vol] 82 mg/dL Normal >39 [facility] Comment on above: Order Comment: Speci men Type: BLOOD SPECIMEN Ordering Facility: [facility] Address: [address] [place], [place] [address] Result Comment: 40-5 9 mg/dL, Acceptable >59 mg/dL, High: Negative risk factor for coronary heart disease <40 mg/dL, Low: Positive risk factor for coronary heart disease Performed By: #### 2 4331-1 #### [facility] CLIA [id number] [address] [place] Cholesterol in LDL [Mass/Vol] 138 mg/dL High <100 [facility] Comment on above: Order Comment: Romy whitehead Type: BLOOD SPECIMEN Ordering Facility: [facility] Address: [address] [place] [address] Result Comment: <100 mg/dL, Optimal 100-129 mg/dL, Near optimal/above optimal 130-159 mg/dL, Borderline high 160-189 mg/dL, High >189 mg/dL, Very high Secondary prevention optimal LDL Cholesterol levels are recommended to be < 70 mg/dL Performed By: #### 2 4331-1 #### [facility] CLIA [id number] [facility] [address] STATES [facility] Cholesterol in LDL/Cholesterol in HDL [Mass ratio] 1.68 {ratio} Normal <2.54 [facility] Comment on above: Order Comment: Romy whitehead Type: BLOOD SPECIMEN Ordering Facility: [facility] Address: [address] [place] [address] Result Comment: Refe princess: 1. National Cholesterol Education Program ATP III Guideline At-A-Glance Quick Desk Reference: National Heart, Lung, and Blood [place]. National Institutes of Health. 2001: NIH Publication No. 01-3305. 2. An International Atherosclerosis Society position paper: global recommendations for the management of dyslipidemia: executive summary, Atherosclerosis. 2014: 232(2):410-413. Performed By: #### 2 4331-1 #### [facility] CLIA [id number] [address] [place] [address] [place] Cholesterol in VLDL [Mass/Vol] 10 mg/dL Normal <30 [facility] Comment on above: Order Comment: Romy whitehead Type: BLOOD SPECIMEN Ordering Facility: [facility] Address: [address] [place] [address] Performed By: #### 2 4331-1 #### [facility] CLIA [id number] [facility] [place] [address] [place] Cholesterol non HDL [Mass/Vol] 148 mg/dL High <130 [facility] Comment on above: Order Comment: Speci men Type: BLOOD SPECIMEN Ordering Facility: [facility] Address: [address] [place] [address] Result Comment: <130 mg/dL, Optimal 130-159 mg/dL, Near optimal/above optimal 160-189 mg/dL, Borderline high 190-219 mg/dL, High >219 mg/dL, Very high Secondary prevention optimal non HDL Cholesterol levels are recommended to be <100 mg/dL Performed By: #### 2 4331-1 #### [facility] CLIA [id number] [address] [place] [address] [place] [facility] Cholesterol.total/Choles terol in HDL [Mass ratio] 2.80 {ratio} Normal <5.10 [facility] Comment on above: Order Comment: Michellei men Type: BLOOD SPECIMEN Ordering Facility: [facility] Address: [address] [place] [address] Performed By: #### 2 4331-1 #### [facility] CLIA [id number] [address] STATES OF [facility] FASTING TIME 21 hrs Normal [facility] Comment on above: Order Comment: Romy whitehead Type: BLOOD SPECIMEN Ordering Facility: [facility] Address: [address] [place] [address] Result Comment: hour s correct per patient. Performed By: #### 2 4331-1 #### [facility] CLIA [id number] [address] STATES OF [facility] Triglyceride [Mass/Vol] 52 mg/dL Normal <150 [facility] Comment on above: Order Comment: Michellei men Type: BLOOD SPECIMEN Ordering Facility: [facility] Address: [address] [place] [address] Result Comment: <150 mg/dL, Normal 150-199 mg/dL, Borderline high 200-499 mg/dL, High >499 mg/dL, Very high Performed By: #### 2 4331-1 #### [facility] CLIA [id number] [address] [place] [address] [place] CNOVon 02-11-2022 CNOV Office Visit ([facility]) ---- CLARA MONTEIRO ([id number]) 1965 F Date Time Provider Department 02/11/22 8:00 AM REYMUNDO INGRAM [facility] During your visit today, we recorded the following information about you: Temperature Pulse Respiration Blood pressure 98.6 degrees 72/minute 18/minute 120/72 Weight 58.5 kg Reymundo Ingram APRN.[employer]IONS ADVISOR 02/11/2022 8:18 AM Signed Subjective HPI Nontoxic-appearing female presents urgent care chief plaint possible sinus infection. Duration of symptoms 3 weeks. Associated symptoms sinus pressure and drainage. Patient states history of sinus infections this feels similar. OTC medications has been use no success. Denies any sinus trauma surgeries. No known sick contacts. Denies any fever body aches chills productive cough chest pain shortness of breath pleuritic pain hemoptysis nausea vomiting abdominal pain change in bowel or bladder habits. Past medical history prescription medication use and allergies reviewed. .Patient presents with: Head Congestion: Sinus pain and pressure, MCCLELLAND x3 weeks PAST MEDICAL HISTORY Diagnosis Date Allergic rhinitis, cause unspecified Allergic rhinitis Anemia H. 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), left ankle 09/05/2016 Short Achilles tendon (acquired), right ankle 09/05/2016 Urinary tract infection, site not specified Recurrent UTI's PAST SURGICAL HISTORY Procedure Laterality Date CATH AND SALINE/CONTRAST SONOHYSTER/HYSTEROS ALPI 2007 COLONOSCOPY FLX DX W/COLLJ SPEC WHEN PFRMD 07/02/2018 Colonoscopy ESOPHAGOGASTRODUODE NOSCOPY TRANSORAL DIAGNOSTIC 12/27/2013 EGD ESOPHAGOGASTRODUODE NOSCOPY TRANSORAL DIAGNOSTIC 03/31/2014 EGD PAST SURGICAL HISTORY OF 1988 CRYOCAUTERY PAST SURGICAL HISTORY OF 05/1994 breast augmentation PAST SURGICAL HISTORY OF Right elbow surgery TONSILLECTOMY PRIMARY/SECONDARY Tonsillectomy ALLERGIES Amoxicillin, Environment [Other], Keflex [Cephalexin], Milk, and Septra [Sulfamethoxazole-T rimethoprim] MEDICATIONS keTORolac (TORADOL) 10 mg tablet Take 1 tablet by mouth every 6 hours as needed. (Patient not taking: Reported on 02/11/2022) ondansetron orally disintegrating (ZOFRAN ODT) 4 mg disintegrating tablet Take 1 tablet by mouth every 8 hours as needed for nausea/vomiting. (Patient not taking: Reported on 02/11/2022) docusate sodium (COLACE) 100 mg capsule Take 1 capsule by mouth twice daily. (Patient not taking: Reported on 02/11/2022) Surgical Lubricant Jelly gel For MRI Female Pelvis, MRI department to provide. Administer intra-vaginal Surgilube immediately prior the MRI procedure (total amount to patient toleranace). (Patient not taking: Reported on 02/11/2022) FAMILY HISTORY Problem Relation Age of Onset other (LUPUS) Mother SCLERODRMA/ Heart Father Hypertension Father other (KIDNEY DISEASE) Father Heart Brother other (Atrial Fib) Brother other (Heart, 2 Leaky valves) Brother other (Leaky Valve) Brother Stroke Paternal Grandmother Cancer Paternal Uncle LUNG Ischemic Heart Disease Paternal Grandfather other (LUPUS) Sister HEART DISEASE/ Heart Maternal Grandmother Cancer Sister 58 lung and stomach cancer, 12/29/13 Arthritis Sister Diabetes Sister Social History Tobacco Use Smoking status: Never Smokeless tobacco: Never Vaping Use Vaping Use: Never used Substance Use Topics Alcohol use: Yes Comment: social Drug use: Never BP 120/72 Pulse 72 Temp 37 ?C (98.6 ?F) Resp 18 Wt 58.5 kg (129 lb) LMP 08/05/2018 (Within Days) SpO2 100% BMI 23.59 kg/m? Review of Systems Constitutional: Negative for chills, fever and malaise/fatigue. HENT: Positive for congestion and sinus pain. Negative for ear discharge, ear pain and sore throat. Eyes: Negative for blurred vision, pain, discharge and redness. Respiratory: Negative for cough, hemoptysis, sputum production, shortness of breath, wheezing and stridor. Cardiovascular: Negative for chest pain. Gastrointestinal: Negative for abdominal pain, diarrhea, nausea and vomiting. Musculoskeletal: Negative for myalgias. Skin: Negative for itching and rash. Neurological: Negative for dizziness and headaches. Objective Physical Exam Constitutional: General: She is not in acute distress. Appearance: She is not diaphoretic. HENT: Head: Normocephalic. Jaw: No trismus, tenderness or pain on movement. Right Ear: Tympanic membrane, ear canal and external ear normal. Left Ear: Tympanic membrane, ear canal and external ear normal. Nose: Congestion present. Right Sinus: Maxillary sinus tender (more content not included)... Normal [facility] .Auto Diffon 10-29-2021 Basophil, Absolute 0.1 10 3/mcL Normal 0.0-0.2 [facility] ([place]) Comment on above: Performed By: #### B MP, GFR #### [address] [address] Basophils/100 WBC (Bld) 0.6 % Normal 0.0-2.5 [facility] ([place]) Comment on above: Performed By: #### B MP, GFR #### [address] [address] Eosinophil, Absolute 0.1 10 3/mcL Normal 0.0-0.4 [facility] ([place]) Comment on above: Performed By: #### B MP, GFR #### [address] [address] Eosinophils/100 WBC (Bld) 1.0 % Normal 0.0-7.0 [facility] ([place]) Comment on above: Performed By: #### B MP, GFR #### [address] [address] Lymphocyte, Absolute 1.5 10 3/mcL Normal 0.8-3.9 [facility] ([place]) Comment on above: Performed By: #### B MP, GFR #### [address] [address] Lymphocytes/100 WBC (Bld) 17.1 % Normal 10.0-50.0 [facility] ([place]) Comment on above: Performed By: #### B MP, GFR #### [address] [address] Monocyte, Absolute 0.3 10 3/mcL Normal 0.2-1.0 [facility] ([place]) Comment on above: Performed By: #### B MP, GFR #### [address] [address] Monocytes/100 WBC (Bld) 3.7 % Normal 1.7-13.0 [facility] ([place]) Comment on above: Performed By: #### B MP, GFR #### [address] [address] Neutrophils/100 WBC (Bld) 77.6 % Normal 37.0-80.0 [facility] ([place]) Comment on above: Performed By: #### B MP, GFR #### [address] [address] .GFRon 10-29-2021 GFR 145 ml/min/1.73sqm Normal [facility] ([place]) Comment on above: Result Comment: GFR Population mean for , Non- Americans Ages 20-29 = 116 mL/min/1.73 sq.m. Ages 30-39 = 107 mL/min/1.73 sq.m. Ages 40-49 = 99 mL/min/1.73 sq.m. Ages 50-59 = 93 mL/min/1.73 sq.m. Ages 60-69 = 85 mL/min/1.73 sq.m. Ages 70+ = 75 mL/min/1.73 sq.m. Chronic Kidney Disease: Less than 60 mL/min/1.73 square meters End Stage Renal Disease: Less than 15 mL/min/1.73 square meters Performed By: #### B MP, GFR #### [address] [address] GFR Non- 119 ml/min/1.73sqm Normal [facility] ([place]) Comment on above: Result Comment: GFR Population mean for , Non- Americans Ages 20-29 = 116 mL/min/1.73 sq.m. Ages 30-39 = 107 mL/min/1.73 sq.m. Ages 40-49 = 99 mL/min/1.73 sq.m. Ages 50-59 = 93 mL/min/1.73 sq.m. Ages 60-69 = 85 mL/min/1.73 sq.m. Ages 70+ = 75 mL/min/1.73 sq.m. Chronic Kidney Disease: Less than 60 mL/min/1.73 square meters End Stage Renal Disease: Less than 15 mL/min/1.73 square meters Performed By: #### B MP, GFR #### [address] [address] .NEUABSon 10-29-2021 Neutrophil, Absolute 6.6 10 3/mcL High 2.9-6.2 [facility] ([place]) Comment on above: Performed By: #### B MP, GFR #### [address] [address] BMPon 10-29-2021 BUN/Creatinine Ratio 28 ratio High 7-27 [facility] ([place]) Comment on above: Performed By: #### B MP, GFR #### [address] [address] Calcium [Mass/Vol] 8.9 mg/dL Normal 8.4-10.2 [facility] ([place]) Comment on above: Performed By: #### B MP, GFR #### [address] [address] Chloride [Moles/Vol] 106 mmol/L Normal 98-107 [facility] ([place]) Comment on above: Performed By: #### B MP, GFR #### [address] [address] CO2 [Moles/Vol] 28 mmol/L Normal 22-29 [facility] ([place]) Comment on above: Performed By: #### B MP, GFR #### [address] [address] Creatinine [Mass/Vol] 0.53 mg/dL Low 0.55-1.02 [facility] ([place]) Comment on above: Performed By: #### B MP, GFR #### [address] [address] Electrolyte Balance 11.0 mEq/L Normal 4.0-15.0 [facility] ([place]) Comment on above: Performed By: #### B MP, GFR #### [address] [address] Glucose [Mass/Vol] 98 mg/dL Normal 70-105 [facility] ([place]) Comment on above: Performed By: #### B MP, GFR #### [address] [address] Potassium [Moles/Vol] 4.0 mmol/L Normal 3.5-5.1 [facility] ([place]) Comment on above: Performed By: #### B MP, GFR #### [address] [address] Sodium [Moles/Vol] 145 mmol/L Normal 136-145 [facility] ([place]) Comment on above: Performed By: #### B MP, GFR #### [address] [address] Urea nitrogen [Mass/Vol] 15 mg/dL Normal 7-18 [facility] ([place]) Comment on above: Performed By: #### B MP, GFR #### [address] [address] CBCon 10-29-2021 Erythrocyte distribution width (RBC) [Ratio] 13.9 % Normal 11.5-14.5 [facility] ([place]) Comment on above: Performed By: #### B MP, GFR #### [address] [address] Hematocrit (Bld) [Volume fraction] 40.4 % Normal 37.0-47.0 [facility] ([place]) Comment on above: Performed By: #### B MP, GFR #### [address] [address] Hgb 13.7 G/dL Normal 12.0-16.0 [facility] ([place]) Comment on above: Performed By: #### B MP, GFR #### [address] [address] MCH (RBC) [Entitic mass] 29.0 pg Normal 27.0-31.2 [facility] ([place]) Comment on above: Performed By: #### B MP, GFR #### [address] [address] MCHC 33.8 G/dL Normal 33.0-37.0 [facility] ([place]) Comment on above: Performed By: #### B MP, GFR #### [address] [address] MCV (RBC) [Entitic vol] 85.7 fL Normal 80.0-94.0 [facility] ([place]) Comment on above: Performed By: #### B MP, GFR #### [address] [address] Platelet 274 10 3/mcL Normal 130-400 [facility] ([place]) Comment on above: Performed By: #### B MP, GFR #### [address] [address] Platelet mean volume (Bld) [Entitic vol] 8.1 fL Normal 7.4-10.4 [facility] ([place]) Comment on above: Performed By: #### B MP, GFR #### [address] [address] RBC 4.71 10 6/mcL Normal 4.20-5.40 [facility] ([place]) Comment on above: Performed By: #### B MP, GFR #### [address] [address] WBC 8.5 10 3/mcL Normal 4.6-10.8 [facility] ([place]) Comment on above: Performed By: #### B MP, GFR #### [id number] [place], [place] [address] LABORATORYOrdered By: Ann Ly on 10-29-2021 Basophil, Absolute 0.1 103/mcL Invalid Interpretation Code 0.0 - 0.2 10^3/mcL AO Workflow SS Basophils/100 WBC (Bld) 0.6 % Invalid Interpretation Code 0.0 - 2.5 % AO Workflow SS Eosinophil, Absolute 0.1 103/mcL Invalid Interpretation Code 0.0 - 0.4 10^3/mcL AO Workflow SS Eosinophils/100 WBC (Bld) 1.0 % Invalid Interpretation Code 0.0 - 7.0 % AO Workflow SS Erythrocyte distribution width (RBC) [Ratio] 13.9 % Invalid Interpretation Code 11.5 - 14.5 % AO Workflow SS Hematocrit (Bld) [Volume fraction] 40.4 % Invalid Interpretation Code 37.0 - 47.0 % AO Workflow SS Hemoglobin (Bld) [Mass/Vol] 13.7 G/dL Invalid Interpretation Code 12.0 - 16.0 G/dL AO Workflow SS Lymphocyte, Absolute 1.5 103/mcL Invalid Interpretation Code 0.8 - 3.9 10^3/mcL AO Workflow SS Lymphocytes/100 WBC (Bld) 17.1 % Invalid Interpretation Code 10.0 - 50.0 % AO Workflow SS MCH (RBC) [Entitic mass] 29.0 pg Invalid Interpretation Code 27.0 - 31.2 pg AO Workflow SS MCHC 33.8 G/dL Invalid Interpretation Code 33.0 - 37.0 G/dL AO Workflow SS MCV (RBC) [Entitic vol] 85.7 fL Invalid Interpretation Code 80.0 - 94.0 fL AO Workflow SS Monocyte, Absolute 0.3 103/mcL Invalid Interpretation Code 0.2 - 1.0 10^3/mcL AO Workflow SS Monocytes/100 WBC (Bld) 3.7 % Invalid Interpretation Code 1.7 - 13.0 % AO Workflow SS Neutrophil, Absolute 6.6 103/mcL Invalid Interpretation Code 2.9 - 6.2 10^3/mcL AO Workflow SS Neutrophils/100 WBC (Bld) 77.6 % Invalid Interpretation Code 37.0 - 80.0 % AO Workflow SS Platelet mean volume (Bld) [Entitic vol] 8.1 fL Invalid Interpretation Code 7.4 - 10.4 fL AO Workflow SS Platelets (Bld) [#/Vol] 274 103/mcL Invalid Interpretation Code 130 - 400 10^3/mcL AO Workflow SS RBC (Bld) [#/Vol] 4.71 106/mcL Invalid Interpretation Code 4.20 - 5.40 10^6/mcL AO Workflow SS WBC (Bld) [#/Vol] 8.5 103/mcL Invalid Interpretation Code 4.6 - 10.8 10^3/mcL AO Workflow SS LABORATORYOrdered By: Faith Angeles on 10-29-2021 Calcium [Mass/Vol] 8.9 mg/dL Invalid Interpretation Code 8.4 - 10.2 mg/dL AO ADM SS Chloride [Moles/Vol] 106 mmol/L Invalid Interpretation Code 98 - 107 mmol/L AO ADM SS CO2 [Moles/Vol] 28 mmol/L Invalid Interpretation Code 22 - 29 mmol/L AO ADM SS Creatinine [Mass/Vol] 0.53 mg/dL Invalid Interpretation Code 0.55 - 1.02 mg/dL AO ADM SS Electrolyte Balance 11.0 mEq/L Invalid Interpretation Code 4.0 - 15.0 mEq/L AO ADM SS Glucose [Mass/Vol] 98 mg/dL Invalid Interpretation Code 70 - 105 mg/dL AO ADM SS Potassium [Moles/Vol] 4.0 mmol/L Invalid Interpretation Code 3.5 - 5.1 mmol/L AO ADM SS Sodium [Moles/Vol] 145 mmol/L Invalid Interpretation Code 136 - 145 mmol/L AO ADM SS Urea nitrogen [Mass/Vol] 15 mg/dL Invalid Interpretation Code 7 - 18 mg/dL AO ADM SS Urea nitrogen/Creatinine [Mass ratio] 28 ratio Invalid Interpretation Code 7 - 27 ratio AO ADM SS LABORATORYOrdered By: SYSTEM SYSTEM on 10-29-2021 GFR 145 ml/min/1.73sqm Invalid Interpretation Code AO Chemistry S GFR Non- 119 ml/min/1.73sqm Inva lid Interpretation Code AO Chemistry S XR CHEST 2 VIEWSon XR CHEST 2 VIEWS ORIGINAL EXAMINATION: TWO XRAY VIEWS OF THE CHEST10/29/2021 1:45 pm XR Chest two views COMPARISON: None HISTORY: ORDERING SYSTEM PROVIDED HISTORY: Reason for Exam: preprocedural respiratory exam, patient is will have knee surgery FINDINGS: No acute infiltrate, consolidation,mass, pneumothorax, pleural fluid, or vascular congestion is seen. Heart size and mediastinal contours are within normal limits for age and projection. No acute skeletal abnormality. IMPRESSION: No acute cardiopulmonary process. Interpreted by: Lucien Lomax MD Preliminary Report By: Lucien Lomax MD Electronically signed By Lucien Lomax MD Dictated Date: 10/29/2021 4:11:09 PM Prelim Date: 10/29/2021 4:12:28 PM Sign Date: 10/29/2021 4:12:28 PM Ordering Provider: TED [facility] ([place]) INR in Blood by Coagulation assayon 07-19-2021 INR Coag (Bld) [Relative time] 1.0 {INR} [facility] Work Phone: Laboratory - Coagulationon 0 07-19-2021 PT Coag (PPP) [Time] 13.1 s 11.7-14.9 [facility] Work Phone: MRI FEMALE PELVIS WO/W IVCON on 06-25-2021 [facility] TE SCREENING W TOMOon 05-31 [facility] US FEMALE PELVIS TRANSVAGon 05-31-2021 [facility] UA DIP, URINE (POC)on 2021 BILIRUBIN UA (POCT) Negative Negative Chris [facility] CLARITY UA (POCT) Clear [facility] COLOR UA (POCT) Yellow [facility] GLUCOSE UA (POCT) Negative Negative mg/dL [facility] HEMOGLOBIN/BLOOD UA (POCT) Moderate Abnormal Negative [facility] KETONE UA (POCT) Negative Negative mg/dL [facility] LEUKOCYTES UA (POCT) Negative Negative [facility] NITRITE UA (POCT) Negative Negative [facility] PH UA (POCT) 6.0 4.5 - 8.0 [facility] Protein Ql (U) Negative Negative mg/dL [facility] SPECIFIC GRAVITY UA (POCT) >=1.030 1.005 - 1.030 [facility] UROBILINOGEN UA (POCT) 0.2 E.U./dL Dorothy l E.U./dL [facility] XR Ribs - left Views and Charity st PAon 06-11-2020 IMPRESSION: No acute left rib fractures seen. Patient can be reevaluated in 10-14 days if symptoms persist. Edger Feeder: SADE Transcribe Date/Time: Jun 11 2020 8:52A Dictated by : GUNNAR ARREOLA MD This examination was interpreted and the report reviewed and electronically signed by: GUNNAR ARREOLA MD on Jun 11 2020 9:02AM [facility] DIVISION OF RADIOLOGY * * *Final Report* * * DATE OF EXAM: Jun 11 2020 8:35AM WOX [id number] - XR RIB/CHST 3V AP RIB/OBL/CHST L / PROCEDURE REASON: Rib pain on left side * * * * Physician Interpretation * * * * XR RIB/CHST 3V AP RIB/OBL/CHST L EXAM DATE/TIME: 06/11/2020 8:35 AM COMPARISON: None. CLINICAL INDICATION/HISTORY: Fall. TECHNIQUE: AP views centered high and low and oblique view of left ribs are presented for interpretation. PA view of the chest is also present. FINDINGS: There is no evidence of acute left rib fracture. There is no pneumothorax or pleural effusion. The underlying visualized lungs appear normal. The bones are osteopenic. DIVISION OF RADIOLOGY Provider, [facility] - 06/11/2020 * * *Final Report* * * DATE OF EXAM: Jun 11 2020 8:35AM WOX [id number] - XR RIB/CHST 3V AP RIB/OBL/CHST L / PROCEDURE REASON: Rib pain on left side * * * * Physician Interpretation * * * * XR RIB/CHST 3V AP RIB/OBL/CHST L EXAM DATE/TIME: 06/11/2020 8:35 AM COMPARISON: None. CLINICAL INDICATION/HISTORY: Fall. TECHNIQUE: AP views centered high and low and oblique view of left ribs are presented for interpretation. PA view of the chest is also present. FINDINGS: There is no evidence of acute left rib fracture. There is no pneumothorax or pleural effusion. The underlying visualized lungs appear normal. The bones are osteopenic. IMPRESSION IMPRESSION: No acute left rib fractures seen. Patient can be reevaluated in 10-14 days if symptoms persist. Edger Feeder: SADE Transcribe Date/Time: Jun 11 2020 8:52A Dictated by : GUNNAR ARREOLA MD This examination was interpreted and the report reviewed and electronically signed by: GUNNAR ARREOLA MD on Jun 11 2020 9:02AM EST [facility] Radiology Study observation (narrative) [facility] XR Ribs - left Views and Charity st PAOrdered By: [facility] Provider on 06-11-2020 [facility] Vital Signs Date Time Vital Sign Value Performing Clinician Facility 10-20-2022 07:14-0400 Body temperature 99.19 [degF] Isaac Ramírez MD Work Phone: [facility] 10-20-2022 07:14-0400 Body weight 57.7 kg Isaac Ramírez MD Work Phone: [facility] 10-20-2022 07:14-0400 Diastolic blood pressure 78 mm[Hg] Isaac Ramírez MD Work Phone: [facility] 10-20-2022 07:14-0400 Heart rate 84 /min Isaac Ramírez MD Work Phone: [facility] 10-20-2022 07:14-0400 Respiratory rate 16 /min Isaac Ramírez MD Work Phone: [facility] 10-20-2022 07:14-0400 SaO2% (BldA) [Mass fraction] 97 % Isaac Ramírez MD Work Phone: [facility] 10-20-2022 07:14-0400 Systolic blood pressure 122 mm[Hg] Isaac Ramírez MD Work Phone: [facility] 02-20-2022 15:29-0500 Body height 157.[address] Madie Metcalf Work Phone: [facility] Work Phone: 02-20-2022 15:29-0500 Body mass index (BMI) [Ratio] 23.8 kg/m2 Dr. Madie Metcalf Work Phone: [facility] Work Phone: 02-20-2022 15:29-0500 Body temperature 96.8 [degF] Dr. Madie Metcalf Work Phone: [facility] Work Phone: 02-20-2022 15:29-0500 Body weight 58.[address] Madie Metcalf Work Phone: [facility] Work Phone: 02-20-2022 15:29-0500 Diastolic blood pressure 71 mm[Hg] Dr. Madie Metcalf Work Phone: [facility] Work Phone: 02-20-2022 15:29-0500 Heart rate 64 /min Dr. Madie Metcalf Work Phone: [facility] Work Phone: 02-20-2022 15:29-0500 Respiratory rate 15 /min Dr. Madie Metcalf Work Phone: [facility] Work Phone: 02-20-2022 15:29-0500 SaO2% (BldA) [Mass fraction] 100 % Dr. Madie Metcalf Work Phone: [facility] Work Phone: 02-20-2022 15:29-0500 Systolic blood pressure 142 mm[Hg] Dr. Madie Metcalf Work Phone: [facility] Work Phone: 02-11-2022 07:55-0500 Body temperature 98.6 [degF] Reymundo Ingram TIE INSPECTOR.OPTIONS ADVISOR Work Phone: [facility] 02-11-2022 07:55-0500 Body weight 58.51 kg Reymundo Nataly TIE INSPECTOR.OPTIONS ADVISOR Work Phone: [facility] 02-11-2022 07:55-0500 Diastolic blood pressure 72 mm[Hg] Reymundo Nataly TIE INSPECTOR.OPTIONS ADVISOR Work Phone: [facility] 02-11-2022 07:55-0500 Heart rate 72 /min Reymundo Ingram TIE INSPECTOR.OPTIONS ADVISOR Work Phone: [facility] 02-11-2022 07:55-0500 Respiratory rate 18 /min Reymundo Ingram TIE INSPECTOR.OPTIONS ADVISOR Work Phone: [facility] 02-11-2022 07:55-0500 SaO2% (BldA) [Mass fraction] 100 % Reymundo Ingram TIE INSPECTOR.OPTIONS ADVISOR Work Phone: [facility] 02-11-2022 07:55-0500 Systolic blood pressure 120 mm[Hg] Reymundo Ingram TIE INSPECTOR.OPTIONS ADVISOR Work Phone: [facility] 08-23-2021 11:04-0400 Body weight 57.79 kg Micaela Shin MD Work Phone: [facility] 08-23-2021 11:04-0400 Diastolic blood pressure 70 mm[Hg] Micaela Shin MD Work Phone: [facility] 08-23-2021 11:04-0400 Systolic blood pressure 106 mm[Hg] Micaela Shin MD Work Phone: [facility] 07-13-2021 08:22-0400 Diastolic blood pressure 55 mm[Hg] Angio 1 Work Phone: [facility] 07-13-2021 08:22-0400 Heart rate 71 /min Angio 1 Work Phone: [facility] 07-13-2021 08:22-0400 SaO2% (BldA) [Mass fraction] 100 % Angio 1 Work Phone: [facility] 07-13-2021 08:22-0400 Systolic blood pressure 111 mm[Hg] Angio 1 Work Phone: [facility] 06-09-2021 10:10-0400 Body height 157.5 cm Aiyana Reaper TIE INSPECTOR.OPTIONS ADVISOR Work Phone: [facility] 06-09-2021 10:10-0400 Body weight 56.25 kg Aiyana Reaper TIE INSPECTOR.OPTIONS ADVISOR Work Phone: [facility] 05-18-2021 15:25-0400 Body height 156.8 cm Nancy Mcnary TIE INSPECTOR.OPTIONS ADVISOR Work Phone: [facility] 05-18-2021 15:25-0400 Body weight 56.7 kg Nancy Ana María TIE INSPECTOR.OPTIONS ADVISOR Work Phone: [facility] 05-18-2021 15:25-0400 Diastolic blood pressure 66 mm[Hg] Nancy Ana María TIE INSPECTOR.OPTIONS ADVISOR Work Phone: [facility] 05-18-2021 15:25-0400 Systolic blood pressure 100 mm[Hg] [facility] Ana María TIE INSPECTOR.OPTIONS ADVISOR Work Phone: [facility] Encounters Encounter Date Encounter Type Care Provider Facility Start: 09-25-2024 ambulatory [facility] Facility:[facility] Start: 08-15-2024 Encounter for genera l adult medical examination with abnormal findings Shanda [facility] Start: 08-12-2024 End: 08-12-2024 ambulatory Shanda Rob REAL ESTATE TRANSACTION COORDINATOR-C Work Phone: [facility] Work Phone: Start: 08-12-2024 End: 08-12-2024 Patient encounter procedure Shanda Rivas REAL ESTATE TRANSACTION COORDINATOR-C -Laboratory Joy Eduardo [facility] Start: 08-12-2024 End: 08-12-2024 ambulatory [facility] Facility:[facility] Start: 04-25-2024 End: 04-25-2024 ambulatory Shanda Rob REAL ESTATE TRANSACTION COORDINATOR-C Work Phone: [facility] Work Phone: Start: 04-25-2024 End: 04-25-[address] Kristian Mir DO -Laboratory, Specimen Work Phone: Start: 04-25-2024 End: 04-25-2024 ambulatory Kristian Mir Facility:[facility] Start: 10-20-2022 End: 10-20-2022 ambulatory DUTCH PARSONS Facility:[facility] Start: 10-20-2022 End: 10-20-2022 Patient encounter procedure Isaac Ramírez MD Work Phone: [facility] Comment on above: Sore throat (Primary Dx); URI, acute Start: 02-23-2022 End: 02-23-2022 ambulatory DUTCH PARSONS Facility:[facility] Start: 02-20-2022 End: 02-20-2022 Emergency department patient visit Dr. Madie Metcalf Work Phone: [facility]-Emergency Department Start: 02-11-2022 End: 02-11-2022 ambulatory DUTCH PARSONS Facility:[facility] Start: 02-11-2022 End: 02-11-2022 Office outpatient visit 25 minutes Reymundo Ingram TIE INSPECTOR.OPTIONS ADVISOR Work Phone: [facility] Comment on above: Bacterial sinusitis (Primary Dx) Start: 11-11-2021 Non-patient / Non-visit Dr. Jake Metcalf Work Phone: [facility] Start: 11-11-2021 End: 11-11-[address] Madie Metcalf Work Phone: [facility] Work Phone: Start: 11-11-2021 End: 11-11-[address] Madie Metcalf Work Phone: [facility]-Cardiovascu lar Services Start: 10-29-2021 End: 10-30-2021 ambulatory TED BARRIENTOS DO Facility:B Start: 10-29-2021 End: 10-29-2021 Patient encounter procedure TED BARRIENTOS DO [facility] Start: 08-23-2021 End: 08-23-2021 Patient encounter procedure Micaela Shin MD Work Phone: OB/Gynecology Comment on above: PMB (postmenopausal bleeding) (Primary Dx); Pelvic cramping; Pelvic pain in female Start: 08-19-2021 ambulatory Micaela Nicole Work Phone: OB/Gynecology Comment on above: Vaginally bleeding Start: 08-03-2021 Telephone encounter Shwetha godinez APRN.OPTIONS ADVISOR Work Phone: [facility] Comment on above: Returning Patient's Call (S/P ovarian vein emb) Start: 08-02-2021 Telephone encounter Chelly Hardy N Angio Comment on above: Patient Question Start: 07-19-2021 End: 07-19-[address] Madie Metcalf Work Phone: [facility]-Laboratory, Specimen Start: 07-13-2021 Telephone encounter Luis Jordan MD Work Phone: Radiology Comment on above: Appointment Start: 07-13-2021 End: 07-13-2021 Patient encounter procedure Angio Room 1 Work Phone: Radiology Comment on above: Radiology IR (Pelvic pain consult) Start: 06-29-2021 ambulatory Aiyana IVEY RN.OPTIONS ADVISOR Work Phone: Gynecology Comment on above: Cpp Radiology Start: 06-28-2021 Telephone encounter Aiyana hardy APRN.CNP Work Phone: Gynecology Comment on above: Results Start: 06-25-2021 End: 06-25-2021 Subsequent hospital visit by physician [facility] (I-Stat/1.5t) Work Phone: Radiology Comment on above: Other intra-abdomina l and pelvic swelling, mass and lump [R19.09] Start: 06-21-2021 ambulatory Aiyana IVEY RN.CNP Work Phone: Gynecology Comment on above: Estrogen supplements Start: 06-17-2021 Telephone encounter Nancy goldstein APRN.CNP Work Phone: OB/Gynecology Comment on above: FYI-No Action Needed Start: 06-09-2021 End: 06-09-2021 Patient encounter procedure Aiyana Hernandez APRN.CNP Work Phone: Gynecology Comment on above: Chronic pelvic pain in female (Primary Dx); Pelvic congestion syndrome; Other intra-abdominal and pelvic swelling, mass and lump; Pelvic and perineal pain; Other specified dyspareunia; High-tone pelvic floor dysfunction; Urinary frequency; Stress incontinence of urine; Constipation, unspecified constipation type; Trigger point of abdomen Start: 06-01-2021 Telephone encounter Nancy goldstein TIE INSPECTORYONNY Work Phone: OB/Gynecology Comment on above: Results Start: 05-31-2021 Documentation procedure Mammog dom Coordinator [facility] Start: 05-31-2021 Letter encounter Mammography Coordinator [facility] Department Start: 05-31-2021 End: 05-31-2021 Subsequent hospital visit by physician [facility] M[facility] Comment on above: Encounter for screen ing mammogram for breast cancer [Z12.31] Pelvic pain in femal e [R10.2] Start: 05-18-2021 End: 05-18-2021 Patient encounter procedure Nancy Gotti APRN.CNP Work Phone: OB/Gynecology Comment on above: Encounter for gyneco logical examination (general) (routine) without abnormal findings (Primary Dx); Dysuria; Encounter for screening for human papillomavirus (HPV); Pap smear for cervical cancer screening; Encounter for screening mammogram for breast cancer; Pelvic pain in female Start: 05-18-2021 End: 05-18-2021 Patient encounter status Nancy Gotti APRN.ALEXANDRE Work Phone: OB/Gynecology Start: 06-11-2020 End: 06-11-2020 Subsequent hospital visit by physician [facility] Work Phone: Radiology Comment on above: Rib pain on left luis e [R07.81] Procedures Date Procedure Procedure Detail Performing Clinician Start: 04-25-2024 Urine culture Shanda Raj guallpa REAL ESTATE TRANSACTION COORDINATOR-C Work Phone: Start: 10-20-2022 STREP A MOLECULAR (POC) James Ro APRN.CNP Work Phone: Start: 02-23-2022 Lipid 1996 panel - S marcellus or Plasma Jo-Ann Lloyd Work Phone: Start: 06-25-2021 Mri pelvis w/o & w/contrast material Aiyana Hernandez APRN.ALEXANDRE Work Phone: Start: 05-31-2021 Us transvaginal Nancy grier APRN.CNP Work Phone: Start: 05-31-2021 TE SCREENING W OWEN Re nee Mcnary TIE INSPECTOR.OPTIONS ADVISOR Work Phone: Start: 05-31-2021 Mammography Screen Wst r Start: 05-18-2021 Urnls dip stick/tabl et rgnt auto w/o microscopy Nancy Mcnary TIE INSPECTOR.OPTIONS ADVISOR Work Phone: Start: 06-11-2020 Radex ribs uni w/posteroant ch minimum 3 views Colten Silveira TIE INSPECTOR.OPTIONS ADVISOR Work Phone: Start: 07-02-[address] [facility] TIE INSPECTOR.[facility] Work Phone: Start: 07-11-[address] [facility] TIE INSPECTOR.[facility] Work Phone: History of augmentat ion of breast History of bilateral saline breast implants Dr. Madie Metcalf Work Phone: Comment on above: SALINE IMPLANTS PLAC ED UNDER THE MUSCLE IN 1994 Plan of Treatment Date Care Activity Detail Author Start: 01-25-2029 Urine microalbumin profile [facility] Start: 07-02-2028 Colonoscopy COLONOSCOPY [facility] Start: 07-02-2028 COLORECTAL CANCER SCREENING COLORECTAL CANCER SCREENING [facility] Start: 07-02-2028 Screening for malign ant neoplasm of colon [facility] Start: 02-23-2027 Lipid panel Lipid Screening [facility] Start: 02-23-2027 LIPID SCREEN LIPID SCREEN [facility] Start: 05-18-2026 HPV TESTING HPV TESTING [facility] Start: 05-18-2026 PAP TESTING PAP TESTING [facility] Start: 05-18-2026 Screening for malign ant neoplasm of cervix Cervical Cancer Screening [facility] Start: 02-23-2025 [facility] Start: 02-23-2025 Diabetes Screening Diabetes Screenin g [facility] Start: 10-29-2023 Covid-19 Vaccine ( season) Covid-19 Vaccine ( season) [facility] Start: 10-29-2023 Influenza vaccination Influenza Vacc ine (#1) [facility] Start: 10-28-2022 Influenza vaccination INFLUENZA (#1) [facility] Start: 05-31-2022 Mammography MAMMOGRAM [facility] Start: 05-31-2022 Screening for malign ant neoplasm of breast Mammogram Screening [facility] Start: 02-20-2022 X-ray of radius and ulna Forearm 2 V iews [facility] Work Phone: Start: 02-20-2022 XR Radius and Ulna 2 Views [facility] Work Phone: Start: 10-28-2021 Influenza vaccination C [facility] Start: 07-13-2021 End: 09-12-2021 Basic metabolic 2000 panel - Serum or Plasma BASIC METABOLIC PNL Lab STAT Pelvic pain in female Expected: 07/13/2021, Expires: 09/12/2021 [facility] Work Phone: Comment on above: Expected: 07/13/2021 , Expires: 09/12/2021 Start: 07-13-2021 End: 09-12-2021 CBC panel - Blood by Automated count CBC Lab STAT Pelvic pain in female Expected: 07/13/2021, Expires: 09/12/2021 [facility] Work Phone: Comment on above: Expected: 07/13/2021 , Expires: 09/12/2021 Start: 07-13-2021 End: 09-12-2021 PT panel - Platelet poor plasma by Coagulation assay PROTHROMBIN TIME/PT Lab STAT Pelvic pain in female Expected: 07/13/2021, Expires: 09/12/2021 [facility] Work Phone: Comment on above: Expected: 07/13/2021 , Expires: 09/12/2021 Start: 02-27-2021 DEPRESSION ASSESSMENT DEPRESSION ASS ESSMENT [facility] Start: 11-19-2020 COVID-19 VACCINE (3 - Booster for Pfizer series) COVID-19 VACCINE (3 - Booster for Pfizer series) [facility] Start: 10-28-2020 Influenza vaccination INFLUENZA (#1) [facility] Start: 08-14-2020 COVID-19 VACCINE (3 - Booster for Pfizer series) COVID-19 VACCINE (3 - Booster for Pfizer series) [facility] Start: 08-14-2020 COVID-19 VACCINE (3 - Pfizer series) COVID-19 VACCINE (3 - Pfizer series) [facility] Start: 08-01-2018 HPV TESTING HPV TESTING [facility] Start: 08-01-2018 PAP TESTING PAP TESTING [facility] Start: 07-11-2017 Mammography MAMMOGRAM [facility] Start: 09-09-2016 DIABETES SCREEN DIABETES SCREEN [facility] Start: 08-27-2015 SHINGRIX VACCINE (1 of 2) SHINGRIX VACCINE (1 of 2) [facility] Start: 10-05-2014 LIPID SCREEN LIPID SCREEN [facility] Start: 11-05-2013 FECAL OCCULT BLOOD FECAL OCCULT BLOO D [facility] Start: 11-05-2013 Screening for malign ant neoplasm of colon Fecal Occult Blood [facility] Start: 2010 COLOGUARD (FIT-DNA) COLOGUARD (FIT-D NA) [facility] Start: [address] COLONOGRAPHY [facility] Start: 2010 Screening for malign ant neoplasm of colon [facility] Start: 2010 SIGMOIDOSCOPY SIGMOIDOSCOPY [facility] Start: 08-27-1983 Anxiety Screening Anxiety Screening [facility] Start: 08-27-1983 HEPATITIS C SCREENING HEPATITIS C SC REENING [facility] Start: 08-27-1983 HIV SCREENING HIV SCREENING [facility] Start: 1977 Adult depression screening assessment DEPRESSION SCREENING [facility] IR INTERVENTIONAL CONSULT IR INTERVENTIONAL CONSULT Radiology Routine Pelvic and perineal pain Chronic pelvic pain in female Ordered: 06/09/2021 [facility] Work Phone: Comment on above: Ordered: 06/09/2021 End: 06-17-2022 TE SCREENING W OWEN TE SCREENING W OWEN Radiology Routine Encounter for screening mammogram for breast cancer 1 Occurrences starting 05/18/2021 until 06/17/2022 [facility] Work Phone: Comment on above: 1 Occurrences starti ng 05/18/2021 until 06/17/2022 Microscopic observat ion [Identifier] in Vaginal fluid by Gram stain BACT/AMELIA VAG GRAM STAIN Microbiology Routine PMB (postmenopausal bleeding) 08/23/2021 12:43 PM EDT [facility] Work Phone: End: 07-09-2022 Mri pelvis w/o & w/contrast material MRI FEMALE PELVIS WO/W IVCON Radiology Routine Other intra-abdominal and pelvic swelling, mass and lump Pelvic and perineal pain 1 Occurrences starting 06/09/2021 until 07/09/2022 [facility] Work Phone: Comment on above: 1 Occurrences starti ng 06/09/2021 until 07/09/2022 PAP FLUID CERVICAL SCREENING PAP FLUID CERVICAL SCREENING Lab Routine Encounter for screening for human papillomavirus (HPV) Pap smear for cervical cancer screening 05/18/2021 3:47 PM EDT [facility] Work Phone: Patient Education ED Tendonitis [facility] Work Phone: Patient referral [facility] Work Phone: SURGICAL PATHOLOGY SURGICAL PATH OLOGY Lab Routine PMB (postmenopausal bleeding) Ordered: 08/23/2021 [facility] Work Phone: Comment on above: Ordered: 08/23/2021 UA DIP OB, URINE (POC) UA DIP OB , URINE (POC) Lab Routine Dysuria Ordered: 05/18/2021 [facility] Work Phone: Comment on above: Ordered: 05/18/2021 End: 06-17-2022 Us transvaginal US FEMALE PELVIS TRANSVAG Radiology Routine Pelvic pain in female 1 Occurrences starting 05/18/2021 until 06/17/2022 [facility] Work Phone: Comment on above: 1 Occurrences starti ng 05/18/2021 until 06/17/2022 [facility] Immunizations Immunization Date Immunization Notes Care Provider Odalis torres 01-25-2019 influenza, injectabl e, quadrivalent, contains preservative Nancy Mcnary TIE INSPECTOR.[employer] Work Phone: [facility] 01-25-2019 tetanus toxoid, redu rajeev diphtheria toxoid, and acellular pertussis vaccine, adsorbed Nancy Mcnary TIE INSPECTOR.[employer] Work Phone: [facility] 01-25-2019 influenza virus vaccine, unspecified formulation Xr Gabino Work Phone: [facility] 11-20-2015 tetanus toxoid, redu rajeev diphtheria toxoid, and acellular pertussis vaccine, adsorbed Dr. Madie Metcalf Work Phone: [facility] 03-13-2008 hepatitis B vaccine, adult dosage Nancy Ana María TIE INSPECTOR.[facility] Work Phone: [facility] Work Phone: 02-28-2008 tetanus and diphther ia toxoids, not adsorbed, for adult use Nancy Ana María TIE INSPECTOR.[facility] Work Phone: [facility] 12-14-2006 hepatitis B vaccine, adult dosage Nancy Mcnary TIE INSPECTOR.[facility] Work Phone: [facility] Work Phone: 11-14-2006 hepatitis B vaccine, adult dosage Nancy Ana María TIE INSPECTOR.[facility] Work Phone: [facility] Work Phone: 09-16-1983 mumps virus vaccine Nancy Me tcalf TIE INSPECTOR.[facility] Work Phone: [facility] Work Phone: 12-01-1976 diphtheria and tetan us toxoids, adsorbed for pediatric use Nancy Mcnary TIE INSPECTOR.[facility] Work Phone: [facility] Work Phone: 12-01-1976 trivalent poliovirus vaccine, live, oral Nancy Mcnary TIE INSPECTOR.[employer] Work Phone: [facility] Work Phone: 03-06-1973 rubella virus vaccine Nancy Mcnary TIE INSPECTOR.[facility] Work Phone: [facility] Work Phone: 03-09-1966 diphtheria, tetanus toxoids and pertussis vaccine Nancy Mcnary TIE INSPECTOR.[facility] Work Phone: [facility] Work Phone: 03-09-1966 trivalent poliovirus vaccine, live, oral Nancy Mcnary TIE INSPECTOR.[employer] Work Phone: [facility] Work Phone: 1965 trivalent poliovirus vaccine, live, oral Nancy Ana María TIE INSPECTOR.[employer] Work Phone: [facility] Work Phone: Payers Date Payer Category Payer Self-pay [id number] 2024 Unknown [id number] 2021 Unknown [id number] 2021 Unknown [id number] 2021 Unknown [id number] 2020 Unknown [id number] 1965 Unknown [id number] Self-pay SELF PAY INSURANCE [id number] Unknown [id number] Unknown [id number] Unknown [id number] Unknown [id number] Social History Date Type Detail Facility Start: 02-11-2022 End: 02-20-2022 Tobacco smoking status MOIS Never smoked tobacco [facility] Work Phone: Start: 05-18-2021 End: 10-20-2022 Alcohol intake Current drinker of alcohol (finding) [facility] Start: 05-18-2021 History SDOH Alcohol Comment social [facility] Start: 1965 Sex Assigned At Not on file [facility] Start: 05-12-2020 End: 08-23-2021 Exposure to SARS-CoV-2 (event) Not sure [facility] Work Phone: Tobacco smoking status No Smokin g Status Entered [facility] Start: 1965 Sex Assigned At Female [facility] Start: 01-21-2021 End: 02-20-2022 Tobacco smoking status MOIS Unknown if ever smoked [facility] Work Phone: Start: 06-25-2020 Non-smoker [facility] Start: 03-12-2011 End: 02-11-2022 Tobacco use and exposure Smokeless tobacco non-user [facility] Start: 02-02-2020 End: 10-20-2022 History of Social function [facility] Work Phone: Start: 02-02-2020 End: 10-20-2022 Tobacco use panel [facility] Work Phone: Adult Depression Screening Assessment 4 [facility] Work Phone: Start: 06-11-2020 Alcoholic beverage intake Not Asked [facility] Start: 05-09-2024 Sex Female (finding) [facility] Medical Equipment Procedure Code Equipment Code Equipment Origin al Text Equipment Identifier Dates Coil Esteban 6mm .018in [place] 14cm Embolization 7.4 Loop Soft Radiopacity - [id number] Start: 07-23-2021 Coil Esteban 6mm .018in [place] 14cm Embolization 7.4 Loop Soft Radiopacity - [id number] Start: 07-23-2021 Coil Esteban 6mm .018in [place] 14cm Embolization 7.4 Loop Soft Radiopacity - [id number] Start: 07-23-2021 Coil Esteban 6mm .018in [place] 14cm Embolization 7.4 Loop Soft Radiopacity - [id number] Start: 07-23-2021 Coil Esteban 6mm .018in [place] 14cm Embolization 7.4 Loop Soft Radiopacity - [id number] Start: 07-23-2021 Coil Esteban 10mm .018in [place] 14cm Embolization 4.5 Loop Soft - [id number] Start: 07-23-2021 Coil Esteban 10mm .018in [place] 14cm Embolization 4.5 Loop Soft - [id number] Start: 07-23-2021 Coil Esteban 10mm .018in [place] 14cm Embolization 4.5 Loop Soft - [id number] Start: 07-23-2021 Coil Esteban 6mm .018in [place] 14cm Embolization 7.4 Loop Soft Radiopacity - [id number] Start: 07-23-2021 Coil Esteban 10mm .018in [place] 14cm Embolization 4.5 Loop Soft - [id number] Start: 07-23-2021 Coil Esteban 6mm .018in [place] 14cm Embolization 7.4 Loop Soft Radiopacity - [id number] Start: 07-23-2021 Clinical Notes 09-09-2013 to 10-20-2022 Isaac Ramírez MD - 10/20/2022 7:17 AM EDTPatient InstructionsReymundo Ingram APRN.CNP - 02/11/2022 8:03 AM Mik Shin MD - 08/23/2021 10:56 AM EDTPatient Instructions Note Date & Type Note Facility 10-20-2022 Note HNO ID: [id number] Author: Isaac Ramírez MD Service: ? Author Type: Physician Type: Progress Notes Filed: 10/20/2022 7:30 AM Note Text: Patient presents with: Sore Throat: Congestion head x 3 days HPI: Feeling sick for 4 days. Positive symptoms: drainage Cough, Sore throat, Sinus pressure, Nasal Congestion, Rhinorrhea, Post nasal drainage, Fever, Negative symptoms: Shortness of breath, Chest tightness, change in baseline body aches, OTC: Nyquil, Dayquil, Ibuprofen MEDICATIONS: No current outpatient medications on file. No current facility-administered medications for this visit. ALLERGIES: ALLERGIES Allergen Reactions Amoxicillin yeast infection Environment [Other] weeds, dust mold trees=sinus infection Keflex [Cephalexin] yeast infection Milk nasal congestion Septra [Sulfamethox* yeast infection VITALS: BP 122/78 Pulse 84 Temp 37.3 ?C (99.2 ?F) Resp 16 Wt 57.7 kg (127 lb 3.2 oz) LMP 08/05/2018 (Within Days) SpO2 97% BMI 23.27 kg/m? PHYSICAL EXAM: GEN: mildly ill appearing HEENT: PERRL, EOMI, conjunctiva clear Ears: canals clear. TMs without erythema, bulge, or effusion Sinuses: non-tender frontal sinus, non-tender maxillary sinuses Throat: moist mucous membranes, mild erythema, no exudate Neck: supple, no thyromegaly, no lymphadenopathy HEART: regular rate and rhythm, no murmurs LUNGS: clear to auscultation, no wheezes or crackles, no increased WOB ASSESSMENT/PLAN: 1. Sore throat - ICD9: 462, ICD10: J02.9 (primary diagnosis) 2. URI, acute - ICD9: 465.9, ICD10: J06.9 - STREP A MOLECULAR (POC) - suspect viral URI; declines COVID testing. - Discussed supportive care treatment with rest, cold medicine, and analgesia. Isaac Ramírez MD [facility] 10-20-2022 History of Present illness Narrative Patient presents with: Sore Throat: Congestion head x 3 days HPI: Feeling sick for 4 days. Positive symptoms: drainage Cough, Sore throat, Sinus pressure, Nasal Congestion, Rhinorrhea, Post nasal drainage, Fever, Negative symptoms: Shortness of breath, Chest tightness, change in baseline body aches, OTC: Nyquil, Dayquil, Ibuprofen MEDICATIONS: No current outpatient medications on file. No current facility-administered medications for this visit. ALLERGIES: ALLERGIES Allergen Reactions Amoxicillin yeast infection Environment [Other] weeds, dust mold trees=sinus infection Keflex [Cephalexin] yeast infection Milk nasal congestion Septra [Sulfamethox* yeast infection VITALS: BP 122/78 Pulse 84 Temp 37.3 C (99.2 F) Resp 16 Wt 57.7 kg (127 lb 3.2 oz) LMP 08/05/2018 (Within Days) SpO2 97% BMI 23.27 kg/m PHYSICAL EXAM: GEN: mildly ill appearing HEENT: PERRL, EOMI, conjunctiva clear Ears: canals clear. TMs without erythema, bulge, or effusion Sinuses: non-tender frontal sinus, non-tender maxillary sinuses Throat: moist mucous membranes, mild erythema, no exudate Neck: supple, no thyromegaly, no lymphadenopathy HEART: regular rate and rhythm, no murmurs LUNGS: clear to auscultation, no wheezes or crackles, no increased WOB ASSESSMENT/PLAN: 1. Sore throat - ICD9: 462, ICD10: J02.9 (primary diagnosis) 2. URI, acute - ICD9: 465.9, ICD10: J06.9 - STREP A MOLECULAR (POC) - suspect viral URI; declines COVID testing. - Discussed supportive care treatment with rest, cold medicine, and analgesia. Isaac Ramírez MD documented in this encounter [facility] 02-23-2022 Note HNO ID: [id number] Author: Dutch Parsons APRN.[employer] ADVISOR Service: ? Author Type: Nurse Practitioner Type: Progress Notes Filed: 02/23/2022 3:53 PM Note Text: SUBJECTIVE Clara Monteiro is a 56 year old female here today to establish care. Chief Complaint Patient presents with: Establish Care Sleep Problem: trouble sleep has tried z-quil, Sleep aid which caused weird dreams and feeling of groggy the next day. Melatonin gives her a dry throat but sleeps ok Trauma: injury to left wrist on [place] HPI Clara Monteiro is a 56 year old female who presents today to establish care. She is having some issues with not sleeping well. She has tried taking melatonin a week or so, helped but dries her out. Tried nyquil, z-quil. Left her feeling groggy. Issues with sleep for a while, years, recently worse. Daughter a year and half ago so worse since then. Trouble with staying asleep and falling asleep. Mind is racing, trouble to shut off at night. Some depression. Denies thoughts of harming self, harming others or suicide and no hallucinations. She really does not feel she is very anxious. Not interested in counseling, has support with her family. Previously tried medications from Dr. Metcalf for mood and did not like the way it made her feel. Thinks this was for mood. Since she has had left wrist pain. She is left handed. She peeled a large number of potatoes. Has been icing it some. Pain is aggravated with use of the left wrist/hand which she does at work. History of high cholesterol and anemia. Her medications were reviewed today and her list is now up to date. Medications Current Outpatient Medications Medication Sig traZODone (DESYREL) 50 mg tablet Take 0.5-2 tablets by mouth at bedtime as needed. predniSONE (DELTASONE) 10 mg tablet Take 2 tabs po BID for 2 days then 1 tab po BID for 2 days then 1/2 tab po BID for 2 days then 1/2 tab daily for 2 days then stop No current facility-administered medications for this visit. 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 Respiratory: Negative. Cardiovascular: Negative. Musculoskeletal: Positive for arthralgias and myalgias. Psychiatric/Behavioral: Positive for dysphoric mood and sleep disturbance. Negative for self-injury and suicidal ideas. The patient is not nervous/anxious. OBJECTIVE BP 104/70 Pulse 77 Ht 5' 2 (1.58m) Wt 127 lb (57.6kg) SpO2 99% LMP 08/05/2018 BMI 23.22 kg/(m2). Physical Exam Vitals and nursing note reviewed. Constitutional: General: She is awake. She is not in acute distress. Appearance: Normal appearance. She is well-developed and well-groomed. She is not ill-appearing, toxic-appearing or diaphoretic. HENT: Head: Normocephalic. Right Ear: External ear normal. Left Ear: External ear normal. Nose: Nose normal. Eyes: General: Vision grossly intact. Conjunctiva/sclera: Conjunctivae normal. Pupils: Pupils are equal, round, and reactive to light. Neck: Vascular: No JVD. Trachea: Trachea normal. Cardiovascular: Rate and Rhythm: Normal rate and regular rhythm. Pulses: Normal pulses. Heart sounds: Normal heart sounds. No murmur heard. Pulmonary: Effort: Pulmonary effort is normal. No accessory muscle usage, prolonged expiration or respiratory distress. Breath sounds: Normal breath sounds. Musculoskeletal: Cervical back: Neck supple. Skin: General: Skin is warm and dry. Capillary Refill: Capillary refill takes less than 2 seconds. Neurological: General: No focal deficit present. Mental Status: She is alert and oriented to person, place, and time. Mental status is at baseline. Psychiatric: Attention and Perception: Attention and perception normal. Mood and Affect: Mood and affect normal. Speech: Speech normal. Behavior: Behavior normal. Behavior is cooperative. Thought Content: Thought content normal. Cognition and Memory: Cognition and memory normal. Judgment: Judgment normal. ASSESSMENT/PLAN: 1. Insomnia, unspecified type - ICD9: 780.52, ICD10: G47.00 (primary diagnosis) Given helpful hints for sleep handout, will (more content not included)... [facility] 02-11-2022 Note HNO ID: [id number] Author: Reymundo Ingram APRN.[employer] ADVISOR Service: ? Author Type: Nurse Practitioner Type: Progress Notes Filed: 02/11/2022 8:18 AM Note Text: Subjective HPI Nontoxic-appearing female presents urgent care chief plaint possible sinus infection. Duration of symptoms 3 weeks. Associated symptoms sinus pressure and drainage. Patient states history of sinus infections this feels similar. OTC medications has been use no success. Denies any sinus trauma surgeries. No known sick contacts. Denies any fever body aches chills productive cough chest pain shortness of breath pleuritic pain hemoptysis nausea vomiting abdominal pain change in bowel or bladder habits. Past medical history prescription medication use and allergies reviewed. .Patient presents with: Head Congestion: Sinus pain and pressure, [place] x3 weeks PAST MEDICAL HISTORY Diagnosis Date Allergic rhinitis, cause unspecified Allergic rhinitis Anemia H. 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/2016 Papanicolaou smear of cervix with atypical squamous cells of undetermined significance (ASC-US) 1988 Cervicitis on colpo BX Paps since Plantar fascial fibromatosis of both feet 09/05/2016 Short Achilles tendon (acquired), left ankle 09/05/2016 Short Achilles tendon (acquired), right ankle 09/05/2016 Urinary tract infection, site not specified Recurrent UTI's PAST SURGICAL HISTORY Procedure Laterality Date CATH AND SALINE/CONTRAST SONOHYSTER/HYSTEROSALPI 2007 COLONOSCOPY FLX DX W/COLLJ SPEC WHEN PFRMD 07/02/2018 Colonoscopy ESOPHAGOGASTRODUODENOSCOPY TRANSORAL DIAGNOSTIC 12/27/2013 EGD ESOPHAGOGASTRODUODENOSCOPY TRANSORAL DIAGNOSTIC 03/31/2014 EGD PAST SURGICAL HISTORY OF 1988 CRYOCAUTERY PAST SURGICAL HISTORY OF 05/1994 breast augmentation PAST SURGICAL HISTORY OF Right elbow surgery TONSILLECTOMY PRIMARY/SECONDARY Tonsillectomy ALLERGIES Amoxicillin, Environment [Other], Keflex [Cephalexin], Milk, and Septra [Sulfamethoxazole-Trimethoprim] MEDICATIONS keTORolac (TORADOL) 10 mg tablet Take 1 tablet by mouth every 6 hours as needed. (Patient not taking: Reported on 02/11/2022) ondansetron orally disintegrating (ZOFRAN ODT) 4 mg disintegrating tablet Take 1 tablet by mouth every 8 hours as needed for nausea/vomiting. (Patient not taking: Reported on 02/11/2022) docusate sodium (COLACE) 100 mg capsule Take 1 capsule by mouth twice daily. (Patient not taking: Reported on 02/11/2022) Surgical Lubricant Jelly gel For MRI Female Pelvis, MRI department to provide. Administer intra-vaginal Surgilube immediately prior the MRI procedure (total amount to patient toleranace). (Patient not taking: Reported on 02/11/2022) FAMILY HISTORY Problem Relation Age of Onset other (LUPUS) Mother SCLERODRMA/ Heart Father Hypertension Father other (KIDNEY DISEASE) Father Heart Brother other (Atrial Fib) Brother other (Heart, 2 Leaky valves) Brother other (Leaky Valve) Brother Stroke Paternal Grandmother Cancer Paternal Uncle LUNG Ischemic Heart Disease Paternal Grandfather other (LUPUS) Sister HEART DISEASE/ Heart Maternal Grandmother Cancer Sister 58 lung and stomach cancer, 12/29/13 Arthritis Sister Diabetes Sister Social History Tobacco Use Smoking status: Never Smokeless tobacco: Never Vaping Use Vaping Use: Never used Substance Use Topics Alcohol use: Yes Comment: social Drug use: Never BP 120/72 Pulse 72 Temp 37 ?C (98.6 ?F) Resp 18 Wt 58.5 kg (129 lb) LMP 08/05/2018 (Within Days) SpO2 100% BMI 23.59 kg/m? Review of Systems Constitutional: Negative for chills, fever and malaise/fatigue. HENT: Positive for congestion and sinus pain. Negative for ear discharge, ear pain and sore throat. Eyes: Negative for blurred vision, pain, discharge and redness. Respiratory: Negative for cough, hemoptysis, sputum production, shortness of breath, wheezing and stridor. Cardiovascular: Negative for chest pain. Gastrointestinal: Negative for abdominal pain, diarrhea, nausea and vomiting. Musculoskeletal: Negative for myalgias. Skin: Negative for itching and rash. Neurological: Negative for dizziness and headaches. Objective Physical Exam Constitutional: General: She is not in acute distress. Appearance: She is not diaphoretic. HENT: Head: Normocephalic. Jaw: No trismus, tenderness or pain on movement. Right Ear: Tympanic membrane, ear canal and external ear normal. Left Ear: Tympanic membrane, ear canal and external ear normal. Nose: Congestion present. Right Sinus: Maxillary sinus tenderness present. Left Sinus: Maxillary sinus tenderness present. Mouth/Throat: Mouth: Mucous membranes are moist. Pharynx: Oropharynx is clear. Uvula midline. No pharyngeal swelling, oropharyngeal exudate, posterior oropharyngeal erythema or uvula swelling. Eyes: Conjunctiva/sc (more content not included)... [facility] 02-11-2022 Instructions Reymundo Ingram APRN.OPTIONS ADVISOR - 02/11/2022 8:10 AM EST [facility] PATIENT INFO ACUTE SINUSITIS OVERVIEW Rhinosinusitis, or more commonly sinusitis, is the medical term for inflammation (swelling) of the lining of the sinuses and nose. The sinuses are the hollow areas within the facial bones that are connected to the nasal openings. The sinuses are lined with mucous membranes, similar to the inside of the nose. There are two main types of sinusitis: acute and chronic. Acute sinusitis is inflammation that lasts for less than four weeks while chronic sinusitis lasts for more than 12 weeks. Acute sinusitis is common, affecting approximately one million people per year in the [place]. ACUTE SINUSITIS CAUSES The most common cause of acute sinusitis is a viral infection associated with the common cold. Bacterial sinusitis occurs much less commonly, in only 0.5 to 2 percent of cases, usually as a complication of viral sinusitis. Because antibiotics are effective only against bacterial, and not viral, infections, most people do not need antibiotics for acute sinusitis. ACUTE SINUSITIS SYMPTOMS Symptoms of acute sinusitis include: Nasal congestion or blockage Thick, yellow to green discharge from the nose Pain in the teeth Pain or pressure in the face that is worse when bending forwards Other acute sinusitis symptoms can include fever (temperature greater than 100.4 F or 38 C), fatigue, cough, difficulty or inability to smell, ear pressure or fullness, headache, and bad breath. In most cases, these symptoms develop over the course of one day and begin to improve within seven to 10 days. DO I NEED TO BE EXAMINED? It is difficult to know if you have a viral or bacterial sinus infection initially. However, most people with a viral infection improve without treatment within seven to 10 days after symptoms begin. Bacterial sinusitis also sometimes improves without treatment, although it can also worsen and require treatment. If one or more of the following bothersome symptoms last more than seven days, an examination by a healthcare provider is recommended: Thick, yellow to green discharge from the nose Face or tooth pain, especially if it is only on one side Tenderness over the maxillary sinuses (located on the left and right side of the nose, inside the cheekbones) Symptoms that initially improve and then worsen When to seek immediate help -- If you have one or more of the following symptoms, you should seek medical attention immediately (even if symptoms have been present for less than seven days): High fever (>102.5 F or 39.2 C) Sudden, severe pain in the face or head Double vision or difficulty seeing Confusion or difficulty thinking clearly Swelling or redness around one or both eyes Stiff neck, shortness of breath ACUTE SINUSITIS TREATMENT Initial treatment of a sinus infection aims to relieve symptoms since almost everyone will improve within the first seven to 10 days. Experts recommend avoiding antibiotics during this time unless there is clear evidence of a severe bacterial infection. Initial treatment Pain relief -- Non-prescription pain medications, such as acetaminophen (eg, Tylenol ) or ibuprofen (eg, Motrin , Advil ) are recommended for pain. Nasal irrigation and saline sprays -- Rinsing the nose with a salt-water (saline) solution is called nasal irrigation or nasal lavage. Saline is also available in a standard nasal spray, although this is not as effective as using larger amounts of water in an irrigation. Nasal irrigation is particularly useful for treating drainage down the back of the throat, sneezing, nasal dryness, and congestion. The treatment helps by rinsing out allergens and irritants from the nose. Saline rinses also clean the nasal lining and can be used before applying sprays containing medications, to get a better effect from the medication. Nasal lavage with warmed saline can be performed as needed, once per day, or twice daily for increased symptoms. Nasal lavage carries few risks when performed correctly. Saline nasal sprays and irrigation kits can be purchased [id number]. Saline mixes can also be purchased or patients can make their own solution. A variety of devices, including bulb syringes, Neti pots, and bottle sprayers, may be used to perform nasal lavage; instructions for nasal lavage are provided in the table. At least 200 mL (about 3/4 cup) of fluid is recommended for each nostril. Nasal decongestants -- Nasal decongestant sprays, including oxymetazoline (Afrin ) and phenylephrine (Doug-synephrine ) can be used to temporarily treat congestion. However, these sprays should not be used for more than two to three days due to the risk of rebound congestion (when the nose is congested constantly unless the medication is used repeatedly). Other treatments -- Other treatments for congestion, such as oral antihistamines (such as diphenhydramine/Benadryl ) or zinc supplements are not proven to improve symptoms of sinusitis and can have unwanted side effects. Medications to thin secretions (such as guaifenesin) may help to clear mucus. Secondline treatment -- If symptoms have not improved in seven to ten days, you should arrange for medical evaluation. You may need further treatment. Nasal glucocorticoids -- Nasal glucocorticoids (steroids delivered by a nasal spray) can help to reduce swelling inside the nose, usually within two to three days. These drugs have few side effects and dramatically relieve symptoms in most people. There are a number of nasal glucocorticoids available by prescription. These drugs are all effective, but differ in how frequently they must be used and how much they cost. You may need to use a nasal decongestant for a few days before starting a nasal glucocorticoid to reduce nasal swelling; this will allow the nasal glucocorticoid to reach more areas of the nasal passages Do I need an antibiotic? -- If bothersome symptoms of sinusitis persist for 10 or more days, it is possible that you have bacterial sinusitis. The need for antibiotics depends upon the severity of your symptoms. Mild symptoms -- There are two possible treatment options if you have mild sinusitis symptoms: treat with antibiotics or continue to watch and wait for one week. Watching and waiting is a reasonable option because up to 75 percent of people with bacterial sinusitis improve within one month without antibiotics. During the watch and wait period, treatments to improve symptoms are recommended. If symptoms worsen or do not improve after watching and waiting, treatment with an antibiotic is usually recommended. Treatments to relieve symptoms are recommended while using antibiotics. Moderate or severe symptoms -- Most healthcare providers will prescribe an antibiotic for moderate to severe symptoms (temperature >38.3 C or 101 F and/or severe pain that interferes with usual activities). Treatments to relieve symptoms are also recommended during antibiotic treatment. One of the least expensive and most effective antibiotics for sinusitis is amoxicillin. An alternate antibiotic will be prescribed if you are allergic to penicillin. Regardless of which antibiotic is prescribed, it is important to follow the dosing instructions carefully and to finish the entire course of treatment. Taking the medication less often than prescribed or stopping the medication early can lead to complications, such as a recurrent infection. What if I do not improve with treatment? -- If you do not improve or worsen after a course of antibiotics, you should be re-examined. In some cases, symptoms of sinusitis improve but then recur. This is usually because the infection was not completely eliminated by the antibiotic. An alternate antibiotic, extended antibiotic treatment, and/or further testing may be recommended, depending upon your individual situation. documented in this encounter [facility] 02-11-2022 History of Present illness Narrative Subjective HPI Nontoxic-appearing female presents urgent care chief plaint possible sinus infection. Duration of symptoms 3 weeks. Associated symptoms sinus pressure and drainage. Patient states history of sinus infections this feels similar. OTC medications has been use no success. Denies any sinus trauma surgeries. No known sick contacts. Denies any fever body aches chills productive cough chest pain shortness of breath pleuritic pain hemoptysis nausea vomiting abdominal pain change in bowel or bladder habits. Past medical history prescription medication use and allergies reviewed. .Patient presents with: Head Congestion: Sinus pain and pressure, [place] x3 weeks PAST MEDICAL HISTORY Diagnosis Date Allergic rhinitis, cause unspecified Allergic rhinitis Anemia H. 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/2016 Papanicolaou smear of cervix with atypical squamous cells of undetermined significance (ASC-US) 1988 Cervicitis on colpo BX Paps since Plantar fascial fibromatosis of both feet 09/05/2016 Short Achilles tendon (acquired), left ankle 09/05/2016 Short Achilles tendon (acquired), right ankle 09/05/2016 Urinary tract infection, site not specified Recurrent UTI's PAST SURGICAL HISTORY Procedure Laterality Date CATH & SALINE/CONTRAST SONOHYSTER/HYSTEROSALPI 2007 COLONOSCOPY FLX DX W/COLLJ SPEC WHEN PFRMD 07/02/2018 Colonoscopy ESOPHAGOGASTRODUODENOSCOPY TRANSORAL DIAGNOSTIC 12/27/2013 EGD ESOPHAGOGASTRODUODENOSCOPY TRANSORAL DIAGNOSTIC 03/31/2014 EGD PAST SURGICAL HISTORY OF 1988 CRYOCAUTERY PAST SURGICAL HISTORY OF 05/1994 breast augmentation PAST SURGICAL HISTORY OF Right elbow surgery TONSILLECTOMY PRIMARY/SECONDARY <AGE 12 Tonsillectomy ALLERGIES Amoxicillin, Environment [Other], Keflex [Cephalexin], Milk, and Septra [Sulfamethoxazole-Trimethoprim] MEDICATIONS keTORolac (TORADOL) 10 mg tablet Take 1 tablet by mouth every 6 hours as needed. (Patient not taking: Reported on 02/11/2022) ondansetron orally disintegrating (ZOFRAN ODT) 4 mg disintegrating tablet Take 1 tablet by mouth every 8 hours as needed for nausea/vomiting. (Patient not taking: Reported on 02/11/2022) docusate sodium (COLACE) 100 mg capsule Take 1 capsule by mouth twice daily. (Patient not taking: Reported on 02/11/2022) Surgical Lubricant Jelly gel For MRI Female Pelvis, MRI department to provide. Administer intra-vaginal Surgilube immediately prior the MRI procedure (total amount to patient toleranace). (Patient not taking: Reported on 02/11/2022) FAMILY HISTORY Problem Relation Age of Onset other (LUPUS) Mother SCLERODRMA/ Heart Father Hypertension Father other (KIDNEY DISEASE) Father Heart Brother other (Atrial Fib) Brother other (Heart, 2 Leaky valves) Brother other (Leaky Valve) Brother Stroke Paternal Grandmother Cancer Paternal Uncle LUNG Ischemic Heart Disease Paternal Grandfather other (LUPUS) Sister HEART DISEASE/ Heart Maternal Grandmother Cancer Sister 58 lung and stomach cancer, 12/29/13 Arthritis Sister Diabetes Sister Social History Tobacco Use Smoking status: Never Smokeless tobacco: Never Vaping Use Vaping Use: Never used Substance Use Topics Alcohol use: Yes Comment: social Drug use: Never BP 120/72 Pulse 72 Temp 37 C (98.6 F) Resp 18 Wt 58.5 kg (129 lb) LMP 08/05/2018 (Within Days) SpO2 100% BMI 23.59 kg/m Review of Systems Constitutional: Negative for chills, fever and malaise/fatigue. HENT: Positive for congestion and sinus pain. Negative for ear discharge, ear pain and sore throat. Eyes: Negative for blurred vision, pain, discharge and redness. Respiratory: Negative for cough, hemoptysis, sputum production, shortness of breath, wheezing and stridor. Cardiovascular: Negative for chest pain. Gastrointestinal: Negative for abdominal pain, diarrhea, nausea and vomiting. Musculoskeletal: Negative for myalgias. Skin: Negative for itching and rash. Neurological: Negative for dizziness and headaches. Objective Physical Exam Constitutional: General: She is not in acute distress. Appearance: She is not diaphoretic. HENT: Head: Normocephalic. Jaw: No trismus, tenderness or pain on movement. Right Ear: Tympanic membrane, ear canal and external ear normal. Left Ear: Tympanic membrane, ear canal and external ear normal. Nose: Congestion present. Right Sinus: Maxillary sinus tenderness present. Left Sinus: Maxillary sinus tenderness present. Mouth/Throat: Mouth: Mucous membranes are moist. Pharynx: Oropharynx is clear. Uvula midline. No pharyngeal swelling, oropharyngeal exudate, posterior oropharyngeal erythema or uvula swelling. Eyes: Conjunctiva/sclera: Conjunctivae normal. Pupils: Pupils are equal, round, and reactive to light. Cardiovascular: Rate and Rhythm: Normal rate and regular rhythm. Heart sounds: Normal heart sounds. Pulmonary: Effort: Pulmonary effort is normal. No tachypnea, accessory muscle usage or respiratory distress. Breath sounds: Normal breath sounds. No stridor. Abdominal: Palpations: Abdomen is soft. Tenderness: There is no abdominal tenderness. Musculoskeletal: Cervical back: Normal range of motion and neck supple. No rigidity or tenderness. Lymphadenopathy: Cervical: Cervical adenopathy present. Skin: General: Skin is warm and dry. Neurological: Mental Status: She is alert and oriented to person, place, and time. ASSESSMENT/PLAN: 1. Bacterial sinusitis - ICD9: 473.9, 041.9, ICD10: J32.9, B96.89 - Will begin treatment with as per antibiotic as written, see orders - Supportive care with plenty of fluids, rest, and analgesia prn. Patient will follow up with primary care provider 5 to 7 days patient was instructed to immediately proceed to emergency room for any new, worsening, or symptoms lasting longer than anticipated. The patient's clinical presentation is otherwise unremarkable at this time. Based on exam and clinical finding, the patient is stable for discharge. Plan of care was discussed with patient. Patient verbalizes understanding and agrees to plan of care. This note was generated using [employer] software. It may contain errors in wording, punctuation, or spelling. Reymundo Ingram APRN.ALEXANDRE documented in this encounter [facility] 10-29-2021 Note ORIGINAL EXAMINATION: TWO XRAY VIEWS OF THE CHEST10/29/2021 1:45 pm XR Chest two views COMPARISON: None HISTORY: ORDERING SYSTEM PROVIDED HISTORY: Reason for Exam: preprocedural respiratory exam, patient is will have knee surgery FINDINGS: No acute infiltrate, consolidation,mass, pneumothorax, pleural fluid, or vascular congestion is seen. Heart size and mediastinal contours are within normal limits for age and projection. No acute skeletal abnormality. IMPRESSION: No acute cardiopulmonary process. Interpreted by: Lucien Lomax MD Preliminary Report By: Lucien Lomax MD Electronically signed By Lucien Lomax MD Dictated Date: 10/29/2021 4:11:09 PM Prelim Date: 10/29/2021 4:12:28 PM Sign Date: 10/29/2021 4:12:28 PM Ordering Provider: [facility] 10-29-2021 Note ORIGINAL EXAMINATION: TWO XRAY VIEWS OF THE CHEST10/29/2021 1:45 pm XR Chest two views COMPARISON: None HISTORY: ORDERING SYSTEM PROVIDED HISTORY: Reason for Exam: preprocedural respiratory exam, patient is will have knee surgery FINDINGS: No acute infiltrate, consolidation,mass, pneumothorax, pleural fluid, or vascular congestion is seen. Heart size and mediastinal contours are within normal limits for age and projection. No acute skeletal abnormality. IMPRESSION: No acute cardiopulmonary process. Interpreted by: Lucien Lomax MD Preliminary Report By: Lucien Lomax MD Electronically signed By Lucien Lomax MD Dictated Date: 10/29/2021 4:11:09 PM Prelim Date: 10/29/2021 4:12:28 PM Sign Date: 10/29/2021 4:12:28 PM Ordering Provider: [facility] 08-23-2021 History of Present illness Narrative POST MENOPAUSAL BLEEDING Clara Monteiro is a 55 year old who presents with post menopausal bleeding. SUBJECTIVE: Daily spotting every day since . Occasional bright red blood, but mostly brown discharge. The bleeding is described as Spotting which has been occurring regularly for 5 days. On HRT? No If yes, do you have withdrawal bleeding? N/A. Last Pap: 05/25/2021 normal Prior history of : Prior Reproductive tract surgery: Uterine artery embolization about 1 month ago Have there been any of the following procedures/diagnoses? D&C: No Hysteroscopy: No Endometrial Bx: No Fibroids/Polyps: No Uterine/Endometrial cancer: No Cervical dysplasia/cancer: No Ovarian cancer: No Family History: FAMILY HISTORY Problem Relation Age of Onset other (LUPUS) Mother SCLERODRMA/ Heart Father Hypertension Father other (KIDNEY DISEASE) Father Heart Brother other (Atrial Fib) Brother other (Heart, 2 Leaky valves) Brother other (Leaky Valve) Brother Stroke Paternal Grandmother Cancer Paternal Uncle LUNG Ischemic Heart Disease Paternal Grandfather other (LUPUS) Sister HEART DISEASE/ Heart Maternal Grandmother Cancer Sister 58 lung and stomach cancer, 12/29/13 Arthritis Sister Diabetes Sister Last pelvic Ultrasound (year options, none, unknown, *) PHYSICAL EXAMINATION: EXAM: BP 106/70 Wt 127 lb 6.4 oz (57.8kg) LMP 08/05/2018 GENERAL: pleasant, female in no apparent distress HEENT: Normocephalic, atraumatic, mucus membranes moist and no lesions CHEST: Normal inspiratory effort PELVIC: external genitalia normal, normal Bartholin's glands, urethra, Dunseith's glands, no vulvar lesions, no cervical lesions, good vaginal support, normal appearing perineal body and perianal region, scant brown blood present RECTOVAGINAL: deferred. NEURO: exam grossly non-focal EXTREMITIES: normal ASSESSMENT/PLAN: Office Visit on 08/23/21 SURGICAL PATHOLOGY BACT/AMELIA VAG GRAM STAIN Presents with new PMB. Discussed possible etiologies. Discussed r/b/a to EMB and pt desires to proceed. See note below. She also reports still constant, daily pelvic pain. She feels cramping as if she is about to start a period. She has not had an improvement in her pain after the [place] for pelvic congestion syndrome. Also having RLQ pain. She is interested in surgical intervention. Briefly discussed hysterectomy and that could not guarantee an improvement in her pain. RTO for follow up to discuss TLH, BS, right oophorectomy. Micaela Shin DO Medical Decision Making: Problems: Low: Stable chronic illness Moderate: New problem with uncertain prognosis Risk: Low: Low risk from testing/treatment Medical Decision Making Level: 3 - Low Clara Monteiro, a 55 year old, presents today for an endometrial biopsy due to post menopausal bleeding. INFORMED CONSENT Procedure: Endometrial Biopsy The risks, benefits and anticipated outcomes of the procedure, the risks and benefits of the alternatives to the procedure and the roles and tasks of the personnel to be involved were discussed with the patient and the patient consents to the procedure and agrees to proceed. I verify that I personally obtained Clara Monteiro's consent. Micaela Shin D.O, Dept of OB/GYNECOLOGY UNIVERSAL PROTOCOL / SAFETY CHECKLIST Procedure to be performed: Endometrial biopsy Sign in Communication: Completed Time Out: Team Confirms the Correct Patient, Correct Procedure, Correct Site and Site Marking, Correct Position (if applicable). Affirmation of Time Out: YES Sign Out Discussion: Completed The patient states an understanding of RBAP and consents to proceed with procedure. Vaginitis: none The cervix was cleansed with Betadine. Uterus was sounded to 7 cm. The specimen was obtained with a/an Pipelle. The procedure was completed without complication and the patient tolerated the procedure well. The specimen was properly labeled and routed to Pathology. PLAN: Await pathology results I have reviewed and updated past medical and surgical history, medications and allergies. Micaela Shin DO documented in this encounter [facility] 08-20-2021 Miscellaneous Notes Agree with appointment thanks Patient also called in today.Has some spotting and cramping. Patient has multiple questions. Patient was offered appt today with [employer]SACTION COORDINATOR's-declined. Has vacation time next week. Appointment given for Monday with Dr Shin. Call if further advice documented in this encounter [facility] 08-03-2021 Miscellaneous Notes Telephone Encounter Person of Contact: Patient Reason for Call: Returning patient's call. S/P B/L ovarian vein embolization 07/23/2021. Outcome of Call: Patient reports doing well overall. She has had an improvement in lower abdominal/pelvic pain. Prior to IR procedure, she C/O feeling like menstrual cramps all the time. Now, she C/O pain localized to right ovary; with Tramadol little to no pain. She is unable to take Tramadol during the day due to her job and reports 6/10 aching pain; with Tylenol or ibuprofen, 2/10. Today, she thinks that this pain is improved slightly. She has had this pain for several years; been told she has a cyst in right ovary. She questions if the pain is related to the cyst and if she should consider removing the cyst vs. removing ovary. Advised patient to F/U with nut chopper for their recommendations. Patient verbalized understanding. Contact Number Given: Yes Number of minutes: A total of 15 minutes was spent on this encounter. Shwetha Barber APRN.CNP August 03, 2021 documented in this encounter [facility] 08-02-2021 Miscellaneous Notes Clara called in today due to continuing post procedure pain located in right lower abdomen. She had a embolization of bilateral ovarian veins on 07/23/ Pain has been 6/10, only able to take prescribed tramadol at night due to her job. States that Tylenol and/or Ibuprofen have not helped. Emailed Dr. Rojas and Stacey Yeh asking to follow up. documented in this encounter [facility] 07-13-2021 Miscellaneous Notes INTERVENTIONAL RADIOLOGY PATIENT APPOINTMENT REQUEST July 13, 2021 Clara Monteiro [id number] Request: Schedule Requestor: Lynne Capellan APRN.CNP Ref.Physician:Bob ZAMBRANO Physician: Bob Procedure/Request: pelvic venogram +/- embolization Reason/ICD Code: pelvic pain Priority: routine Scheduling Comments: n/a Does MD need to be present for consult?: N/A IR Procedure Room: To be scheduled in any room except 20 Equipment or Vendor Request: No / N/A Anticipated length of procedure (not including prep or Anesthesia): 3 hours Pre-Procedure Orders: Labs CBC, BMP, INR Sedation: Moderate Sedation Bed Reservation: No Location of Procedure: [facility] [place] documented in this encounter [facility] 07-13-2021 Instructions Lynne Capellan APRN.CNP - 07/13/2021 9:00 AM EDT Will plan for pelvic venogram, if dilation of vessels is noted will plan to embolization (block off blood supply of vein) Contact Information: If you have questions regarding scheduling please call [phone] select option 1 If you have questions regarding your upcoming procedure or would like to speak to an Interventional Radiology Nurse please call [phone] documented in this encounter [facility] 07-13-2021 Nurse Note Nurse intake Pre-visit questions Check off list Chief complaint confirmed and entered into Epic: YES Medication list reviewed and updated: YES Pharmacy confirmed: YES Allergies reviewed and updated: YES Past medical and surgical history reviewed and updated: YES Patient reminded to prepare to show any areas of concern and pertinent to visit: YES Reason for visit: Pelvic pain consult Visit type: In-person Pre-visit conducted by: Serene Bishop RN July 13, 2021 8:20 AM documented in this encounter [facility] 07-13-2021 History and physical note Images from the original note were not included. INTERVENTIONAL RADIOLOGY SERVICE CONSULT NOTE SERVICE DATE: 07/13/21 SERVICE TIME: 8:33 AM PRIMARY CARE PHYSICIAN: Madie Metcalf MD Consultation requested by Aiyana Hernandez APRN.CNP for an opinion regarding pelvic pain. Final recommendations will be communicated back to the requesting physician by way of shared medical record. HPI: Clara Monteiro is a 55 year old female with a history of anemia and ovarian cyst who presents with pelvic pain. Patient presents to Interventional Radiology for an evaluation of pelvic pain and possible treatment. Patient has tried conservative therapy Yes failed Yes (Tylenol and Advil- dulls pain, but still present) What do you think is causing the pelvic pain? Pelvic congestion syndrome Is there an event associated with the onset of pain: No How long have you had this pain? > 2 years, has increased to everyday, constant for the past 2 months. Do you have sudden episodes of pelvic pain that come and go? No Do you currently have or have you been treated for varicose veins in the labia or lower extremities? No Is your pain increased with your menstrual cycle? No, post menopause Do you associate your pain with anything else? No Pelvic pain:bilateral, non radiating Quality? Severity: Typical pain rated 6/10, worst pain rated 8/10 Aggravating factors: Standing? No Exercise? No Progresses throughout the day? No, intermittent Alleviating factors: Rest? No Elevation of legs? unknown Wake up with pain? Yes Past interventions: Hormonal methods?No Medications? Yes Tylenol and Alieve Procedures? No Physical therapy/pelvic floor therapy? No Dyspareunia? Yes Desire for future fertility? No OB History T3 L3 SAB1 IAB0 Ectopic0 Multiple0 Live Births3 Menstrual period: post menopausal Have you ever been a victim of sexual, physical, or emotional abuse? This can include humiliation or being insulted. No HISTORY REVIEWED (electronic chart updated): PAST MEDICAL HISTORY Diagnosis Date Allergic rhinitis, cause unspecified Allergic rhinitis Anemia H. 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), left ankle 09/05/2016 Short Achilles tendon (acquired), right ankle 09/05/2016 Urinary tract infection, site not specified Recurrent UTI's PAST SURGICAL HISTORY Procedure Laterality Date CATH & SALINE/CONTRAST SONOHYSTER/HYSTEROSALPI 2007 COLONOSCOPY FLX DX W/COLLJ SPEC WHEN PFRMD 07/02/2018 Colonoscopy ESOPHAGOGASTRODUODENOSCOPY TRANSORAL DIAGNOSTIC 12/27/2013 EGD ESOPHAGOGASTRODUODENOSCOPY TRANSORAL DIAGNOSTIC 03/31/2014 EGD PAST SURGICAL HISTORY OF 1988 CRYOCAUTERY PAST SURGICAL HISTORY OF 05/1994 breast augmentation PAST SURGICAL HISTORY OF Right elbow surgery TONSILLECTOMY PRIMARY/SECONDARY <AGE 12 Tonsillectomy FAMILY HISTORY Problem Relation Age of Onset other (LUPUS) Mother SCLERODRMA/ Heart Father Hypertension Father other (KIDNEY DISEASE) Father Heart Brother other (Atrial Fib) Brother other (Heart, 2 Leaky valves) Brother other (Leaky Valve) Brother Stroke Paternal Grandmother Cancer Paternal Uncle LUNG Ischemic Heart Disease Paternal Grandfather other (LUPUS) Sister HEART DISEASE/ Heart Maternal Grandmother Cancer Sister 58 lung and stomach cancer, 12/29/13 Arthritis Sister Diabetes Sister Social History Tobacco Use Smoking status: Never Smoker Smokeless tobacco: Never Used Vaping Use Vaping Use: Never used Substance Use Topics Alcohol use: Yes Comment: social Drug use: Never Current Outpatient Medications Medication Sig Surgical Lubricant Jelly gel For MRI Female Pelvis, MRI department to provide. Administer intra-vaginal Surgilube immediately prior the MRI procedure (total amount to patient toleranace). No current facility-administered medications for this visit. ALLERGIES Allergen Reactions Amoxicillin yeast infection Environment [Other] weeds, dust mold trees=sinus infection Keflex [Cephalexin] yeast infection Milk nasal congestion Septra [Sulfamethox* yeast infection REVIEW OF SYSTEMS: See HPI: Remaining ROS reviewed and negative unless otherwise noted in HPI. PHYSICAL EXAMINATION: LMP 08/05/2018 (Within Days) General appearance: Well appearing, alert, in no acute distress, well-hydrated, well nourished. Skin: Skin color, texture, turgor normal, no suspicious rashes or lesions Lungs: Lungs clear to auscultation. No wheezing, rhonchi, rales. Heart: RRR without murmur, gallop, or rubs. No ectopy Abdomen: Abdomen soft, tender in pelvic region with deep palpation. Bowel sounds normal. No masses, organomegaly Extremities: No deformities, edema, skin discoloration, clubbing or cyanosis. Good capillary refill. Musculoskeletal: No joint swelling, deformity, or tenderness Peripheral pulses: Normal Neuro: Gait normal. Oriented X 3 DATA: MRI pelvis: 06/25/2021 IMPRESSION: Uterus and ovary/adnexa are unremarkable. Prominent periuterine collaterals which can be seen in setting of pelvic congestion syndrome. No acute pathology seen in the pelvis US female pelvis: 05/31/2021 IMPRESSION: Prominent periuterine vessels which can be seen in the setting of pelvic congestion syndrome. RIGHT ovary not visualized. ASSESSMENT: Clara Monteiro is a 55 year old year old female with pelvic pain present for > 2 years, increased over the past 2 months. Patient has failed conservative therapy with Tylenol and Alieve. MRI reveals prominent periuterine collateral which can be seen in the setting of pelvic congestion syndrome. was present and all information and imaging was reviewed. - Will plan for venogram +/- embolization of periuterine veins. -AC: No -Labs: CBC, BMP, Coags -Pelvic Pain clinic -Agrees to proceed with angiogram +/- intervention IR procedure schedulers and coordinators will contact the patient regarding dates and times of scheduling the procedure. The risks, benefits, alternatives, and personnel involved with the procedure were discussed in detail. There was opportunity for question and answer. I spent a total of 60 minutes on the date of the service which included preparing to see the patient, [id number] patient care, completing clinical documentation, obtaining and/or reviewing separately obtained history, performing a medically appropriate examination, ordering medications, tests, or procedures and care coordination (not separately reported). SIGNATURE: Lynne Capellan APRN.CNP PATIENT NAME: Clara Monteiro DATE: July 13, 2021 TIME: 9:20 AM documented in this encounter [facility] 06-29-2021 Miscellaneous Notes She really needs to see interventional radiology as we discussed at her appointment. If she would like to speak and review the MRI please offer her a virtual visit on Monday Aiyana Hernandez APRN.OPTIONS ADVISOR Message text Spoke with pt. Verified name/. Time/date offered and pt accepted. Steffi Zaldivar RN June 29, 2021 11:21 AM Pt left VM on nurse line asking for MRI results. Pelvic MRI 06/25/21 Impression IMPRESSION: Uterus and ovary/adnexa are unremarkable. Prominent periuterine collaterals which can be seen in setting of pelvic congestion syndrome. No acute pathology seen in the pelvis Edger Feeder: SADE Transcribe Date/Time: Jun 25 2021 3:42P Dictated by : MEENU TERRY MD This examination was interpreted and the report reviewed and electronically signed by: MEENU TERRY MD on Jun 25 2021 3:50PM EST Results-Findings Final Report DATE OF EXAM: Jun 25 2021 3:23PM [facility] 0713 - MRI FEMALE PELVIS WO/W IVCON / PROCEDURE REASON: multiple diagnoses Physician Interpretation MRI OF THE PELVIS WITHOUT AND WITH CONTRAST (DEEPLY INFILTRATIVE ENDOMETRIOSIS PROTOCOL) CLINICAL HISTORY: pelvic pain TECHNIQUE: Magnet: Siemens 3T Skyra scanner. Coil: Torso phased array Sequences / planes: T2: axial, sagittal, coronal and axial oblique High resolution T2: sagittal HASTE: coronal large field of view T1 in and out of phase T1 3-D GRE with and without contrast: axial, sagittal Diffusion weighted imaging with ADC mapping: axial (limited due to artifact) Contrast: Contrast Media 1: IV administration of 12 ml of Dotarem COMPARISON: Ultrasound pelvis 05/31/2021 RESULT: Uterus: Size: 6.7 x 3.5 x 4.1 cm Orientation: Anteverted Endometrium: Maximum width measures 3 mm. No endometrial lesion. Junctional zone: Maximum thickness: 7 mm. Normal signal. Cervix: Normal Leiomyomas: None Adenomyomas: None Ovaries: - Right ovary: 1.3 x 1.4 x 1.7. No adnexal mass. - Left ovary: 2.6 x 1.1 x 1.6 cm. No adnexal mass. Other: No T1 bright signal intensities seen within the pelvis to suggest endometriosis. No retractile process. There is prominent bilateral periuterine collateral vessels which can be seen in setting of pelvic congestion syndrome. Pelvis free fluid: No significant ascites Lymph nodes: No lymphadenopathy Bones:Normal marrow signal. Additional findings: Left upper pole 1 cm renal cyst. No hydronephrosis. Visualized abdominal and pelvic viscera unremarkable. 06/09/21 Encounter Diagnosis ICD-10-CM 1. Chronic pelvic pain in female R10.2 iv contrast (will be provided with radiology test) G89.29 Surgical Lubricant Jelly gel IR INTERVENTIONAL CONSULT CONSULT TO PHYSICAL THERAPY 2. Pelvic congestion syndrome N94.89 3. Other intra-abdominal and pelvic swelling, mass and lump R19.09 MRI FEMALE PELVIS WO/W IVCON iv contrast (will be provided with radiology test) Surgical Lubricant Jelly gel 4. Pelvic and perineal pain R10.2 MRI FEMALE PELVIS WO/W IVCON iv contrast (will be provided with radiology test) Surgical Lubricant Jelly gel IR INTERVENTIONAL CONSULT 5. Other specified dyspareunia N94.19 iv contrast (will be provided with radiology test) Surgical Lubricant Jelly gel CONSULT TO PHYSICAL THERAPY 6. High-tone pelvic floor dysfunction N94.89 CONSULT TO PHYSICAL THERAPY 7. Urinary frequency R35.0 CONSULT TO PHYSICAL THERAPY 8. Stress incontinence of urine N39.3 CONSULT TO PHYSICAL THERAPY 9. Constipation, unspecified constipation type K59.00 CONSULT TO PHYSICAL THERAPY 10. Trigger point of abdomen R10.9 CONSULT TO PHYSICAL THERAPY PLAN MRI to evaluate Prominent periuterine vessels seen on ultrasound Consult with interventional radiology Consider Pelvic floor physical therapy for incontinence, pain with intercourse and pelvic pain Relaxation techniques for pain Avoid constipation Aiyana Hernnadez, TIE INSPECTOR.OPTIONS ADVISOR Routing to [facility] Plastic Surgery Manager pool. Steffi Zaldivar RN June 28, 2021 4:29 PM documented in this encounter [facility] 06-25-2021 History of Present illness Narrative Radiology Service Progress Note DATE OF SERVICE: June 25, 2021 TIME: 2:49 PM PATIENT IDENTITY VERIFICATION COMPLETED USING TWO (2) STANDARD IDENTIFIERS: Name and Date of confirmed by patient verbally. FALL SCREENING: Has the patient had 2 falls in the last year or 1 fall with injury or currently using an Ambulatory Assistive Device (Walker, Cane, Wheelchair, Crutches, etc.)? No PATIENT GENDER DATA: Female. status: : No status: NO. PATIENT RELEVANT IMPLANT DATA REVIEWED: Yes ALLERGIES: Reviewed and unchanged CONTRAST ALLERGY: NO. EXAM: MRI - CONTRAST TYPE: GROUP II PERIPHERAL IV DATA: Ambulatory: A peripheral IV was started in the Right antecubital site with a Angio cath: 22 gauge. RADIOLOGY DEPARTMENT: MR; Exam(s) Completed: Body: Female Pelvis SIGNATURE: RT Ming(Antony) PATIENT NAME: Clara Monteiro DATE: June 25, 2021 TIME: 2:49 PM documented in this encounter [facility] 06-25-2021 Miscellaneous Notes Patient responding to MY chart message She has called the office regarding returning nurse call Pateint can be reached at [phone] Christiane Aponte Electronically signed by Christiane Ramirez [facility] [place]/25[place]21 2:16 PM EDTdocumented in this encounter [facility] 06-18-2021 Miscellaneous Notes Pt was notified via [employer] of Nancy's response to her question re: FMLA. Paperwork was then faxed to Aiyana Hernandez's office for their review. Erika Cao LPN' Pt will need to have pelvic pain clinic fill out fmla paper since I am not treating her and referred her on them. Nancy Gotti APRN.CNP Patient called back stating that she is having her MRI done in [place] and that she hopes to be able to continue her care in [place]. But if she has to go to [place] she would need our office to fax fmla papers to [place]. Patient needs FMLA completed for appointments that she has already completed (office appointments & ultrasound) and upcoming appointment- MRI Patient called back and states she was seen once by pelvic pain clinic and refuses to go back to [place] to be seen by them. Patient states she doesn't understand why she was sent to them to begin with. Patient wanting to know if she can just continue care with Nancy and if she can fill out her FMLA for her. Sandra Kapadia RN Pt dropped off FMLA paperwork to be completed d/t pelvic pain. Pt has been referred on to Pelvic pain clinic. Pt left phone message that she will need to have the provider who is currently treating her for this fill out the paperwork. Will await return call from pt. Erika Cao LPN documented in this encounter [facility] 06-09-2021 Instructions Aiyana Hernandez APRN.ALEXANDRE - 06/09/2021 10:42 AM EDT Plan: MRI to evaluate Prominent periuterine vessels seen on ultrasound Consult with interventional radiology Consider Pelvic floor physical therapy for incontinence, pain with intercourse and pelvic pain Relaxation techniques for pain Avoid constipation Aiyana Hernandez APRN.ALEXANDRE Relaxation techniques for pain flares: Heating pads Stretching Hot bath (can add Epsom salts or soothing scents (caution if you have been diagnosed with vulvodynia in the past) Non-narcotic pain medications: Tylenol and Ibuprofen alternating Muscle relaxers*: Tizanidine, Flexeril, Baclofen suppositories, Valium suppositories Mindfulness/meditation/relaxation techniques Massage therapy Yoga Distraction Exercise, slow walks * May cause drowsiness, so caution with driving, performing tasks that require full attention Caution do not keep pad or bottle on >30 minutes, and do not heat too hot for risk of bell and/or temporary or permanent skin changes. Pelvic Floor Dysfunction (PFD) The pelvic floor is made up of the bony pelvis (hip bones) together with different layers of muscles, fascia, and ligaments. The pelvic floor acts like a hammock to support the pelvic organs including the uterus, bladder, and rectum. If the muscles become overactive, strained or uncoordinated, they may cause pain in the pelvis. This pain may lead the muscles to not contract, relax, or work together. This in turn can lead to shifting of your bony pelvis with subsequent pain in your lower back, hips, knees, or ankles. Symptoms Symptoms related to PFD may include pain of the lower abdomen and pelvic region, a sensation of vaginal heaviness or pressure, pain with vaginal penetration, and low back pain that cannot be explained by other reasons. PFD can also impact bladder and bowel function. Bladder symptoms may include urinary urgency and frequency, feeling of incomplete emptying, intermittent urinary stream or the need to strain, and urinary incontinence (leakage). Bowel symptoms may include constipation, pain with bowel movements, frequent bowel movements and fecal incontinence (leakage of stool.) Symptoms of PFD tend to develop slowly and worsen over time. Main causes of PFD While the cause of PFD is not always known contributing factors may include , vaginal delivery, pelvic trauma, pelvic surgery and obesity. PFD is also frequently found alongside pelvic diseases such as endometriosis, bladder pain syndrome, irritable bowel syndrome and vulvar pain. PFD may also arise due to repeated straining (such as with bowel movements) leading to poor coordination of the pelvic floor muscles. The pelvic floor muscles may also be involved in compensating for other musculoskeletal conditions, such as low back or hip pain. Treatment Physical Therapy is performed by a physical therapist who has been specifically trained in pelvic health. The physical therapist will perform a complete initial evaluation and, together with the patient, will establish goals and develop an individualized treatment plan. The treatment plan may include patient education, manual therapy, therapeutic exercise, postural training, breathing exercises, neuromuscular reeducation (teaching how to improve pelvic floor muscle control including relaxation, contraction, and coordination), biofeedback, and home exercise program. Modalities such as cold laser, interferential current, electrical stimulation, ultrasound, heat, and ice may also be used. Medications in the form of muscle relaxants or nerve pain medicines can be given to relax the pelvic muscles, desensitize the nervous system, and help the patient tolerate physical therapy. Trigger point injections are injections placed directly in the dysfunctional muscles to control pain, treat inflammation, and reduce spasm. Injections may include a numbing agent, a steroid, or even botulinum toxin. PFD often requires a combination of treatments in addition to physical therapy. In patients with chronic pain, other interventions such as stress control, lifestyle modification, cognitive behavioral therapy (CBT), relationship therapy, meditation, yoga, and acupuncture may be used to reduce pain and improve function. This information is from the international pelvic pain society (pelvicpain.org) Constipation. The importance of a bowel regimen to ensure regular bowel movements was reinforced to the patient today. Dietary changes, fiber supplementation, adequate hydration, and over the counter agents (both stool softeners such as docusate and laxatives such as milk of magnesia and Miralax) were reviewed. She will gradually initiate fiber supplementation. She was advised that the National Cancer [place] recommends that you eat 25 35 grams of fiber DAILY. She was advised to gradually increase her fiber intake to this goal. She was counseled that fiber will treat both constipation and diarrhea, improve hemorrhoid symptoms and bleeding, lower her cholesterol, and reduce her risk of many medical conditions, including: Colon and Rectal Cancer, Diverticulosis, Complications of diverticulitis: perforation, infection, emergency surgery documented in this encounter [facility] 06-09-2021 History of Present illness Narrative CONSULT: [facility] SERVICE DATE: June 08, 2021 Consultation requested by Nancy Gotti CNP for an opinion regarding Ms. Clara Monteiro, and my final recommendations will be communicated back to the requesting physician by way of shared medical record or letter via [place] mail. PRIMARY CARE PHYSICIAN: Madie Metcalf MD SUBJECTIVE Patient's Goal: to feel better Consultation requested by Dr. Nancy Gotti [address] [place] for an opinion regarding Ms. Clara Monteiro, and my final recommendations will be communicated back to the requesting physician by way of shared medical record or letter via [place] mail. PRIMARY CARE PHYSICIAN: Madie Metcalf MD . Lives with and 2 sons. Feels safe in home. 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 SUBJECTIVE Patient's Goal: feel better What do you thing is causing your pain? Pelvic Congestion Syndrome Is there an event you associate with the onset of your pain? No Have you had pain in your pelvis or lower abdomen for greater than 6 months: Yes, on and off for years but 2 months recently (have a cyst on ovary at least 22 years). HPI: 55 year old presents with Pelvic pain Pain has been there but thought it was related to her cyst on ovary Periods were normal. Achy on one side. This cyst has been present over 21 yrs. Periods stopped 2 years ago. Feels pain around the time she thinks she could have been ovulating an A month ago it starting becoming more consistent and there all the time Urinary - Frequent uti. Pressure at urethra. Back aches. Pain with full bladder. Even after urination has sensation that needs to urinate. Thought it was a UTI GI - Constipation which is newer concern. Doesn't usually take anything but took a laxative. Altheimer - Feels like painful on right. Positional. Always had this pain. Not horrible. No pelvic trauma Gets tpi in back for bulging disk 3 vaginal deliveries. No trauma. Hemorrhaged with oldest daughter delivery 33 yrs ago. She this past year Duration of painful symptoms: Location: Pelvis: bilateral 12/06 Back: sacral 10 Quality: Pain: aching and cramping, throbbing- basically like bad menstrual cramps always Severity: Severe: 8-10 at the least, and Severe: 8-10 at the most Radiation pelvis and lower back (leg/back/abdomen/buttock/vagina) Aggravating factors: sitting, standing, lying down, eating, full bladder, bowel movement Alleviating factors: tylenol, ibuprofen Menstrual Symptoms: periods started at age 12. No longer having periods. LMP 05/2018. Missed school/work due to painful periods. Not taking hormonal medications for non-contraceptive reasons. Menstrual regulation tried: none RELEVANT RECORDS AND IMAGING DATE OF EXAM: May 31 2021 1:58PM [facility] [id number] - US FEMALE PELVIS TRANSVAG / PROCEDURE REASON: Pelvic pain in female EXAMINATION: TRANSVAGINAL AND LIMITED TRANSABDOMINAL PELVIC ULTRASOUND CLINICAL HISTORY: 55 years old Female with Pelvic pain in female. Postmenopausal. TECHNIQUE: Sonography of the pelvis was performed by transvaginal and transabdominal (limited) techniques. Images were obtained and stored in a permanent archive. MQ: [id number] COMPARISON: Ultrasound 07/11/2016, CT abdomen pelvis 11/29/2013 RESULT: Uterus size: 7.2 x 2.9 x 4.4 cm -Orientation: Anteverted -Myometrium: Normal sonographic appearance. -Endometrial echo complex: 3 mm. -Cervix: normal -Other: Prominent periuterine vessels. Right ovary: Not visualized. Left ovary: 1.7 x 1.7 x 1.2 cm. Normal sonographic appearance. Arterial and venous flow with normal spectral waveforms present. Pelvis free fluid: None. Altheimer: sexually active SFSI6: 19 (below 19 indicates Female Sexual Dysfunction) Urinary Symptoms: usually moderate pain and urgency PUF: 21 (20+ indicates probable Interstitial Cystitis) GI Symptoms: none Diagnoses related to pelvic pain: none Interventions tried for pain: none Pain Scales PDI: 0/70 GAD7: 1 (Greater than 8 indicates probable anxiety disorder) PHQ9: 1 (Greater than 14 warrants treatment for depression) SEXUAL AND PHYSICAL ABUSE HISTORY: Have you ever been a victim of emotional, physical or sexual abuse? This can include being humiliated or insulted. No HISTORIES OB History T3 L3 SAB1 IAB0 Ectopic0 Multiple0 Live Births3 - daughter passed in 2020 PAST MEDICAL HISTORY PAST MEDICAL HISTORY Diagnosis Date Allergic rhinitis, cause unspecified Allergic rhinitis Anemia H. 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/2016 Papanicolaou smear of cervix with atypical squamous cells of undetermined significance (ASC-US) 1988 Cervicitis on colpo BX Paps since Plantar fascial fibromatosis of both feet 09/05/2016 Short Achilles tendon (acquired), left ankle 09/05/2016 Short Achilles tendon (acquired), right ankle 09/05/2016 Urinary tract infection, site not specified Recurrent UTI's PAST SURGICAL HISTORY PAST SURGICAL HISTORY Procedure Laterality Date CATH & SALINE/CONTRAST SONOHYSTER/HYSTEROSALPI 2007 COLONOSCOPY FLX DX W/COLLJ SPEC WHEN PFRMD 07/02/2018 Colonoscopy ESOPHAGOGASTRODUODENOSCOPY TRANSORAL DIAGNOSTIC 12/27/2013 EGD ESOPHAGOGASTRODUODENOSCOPY TRANSORAL DIAGNOSTIC 03/31/2014 EGD PAST SURGICAL HISTORY OF 1988 CRYOCAUTERY PAST SURGICAL HISTORY OF 05/1994 breast augmentation PAST SURGICAL HISTORY OF Right elbow surgery TONSILLECTOMY PRIMARY/SECONDARY <AGE 12 Tonsillectomy SOCIAL HISTORY Social History Tobacco Use Smoking status: Never Smoker Smokeless tobacco: Never Used Vaping Use Vaping Use: Never used Substance Use Topics Alcohol use: Yes Comment: social Drug use: Never HEALTH HABITS: never received treatment for substance abuse Not currently using recreational drugs. COPING MECHANISMS: Spouse and friends are supportive. I rarely complain. My pain is just one of many problems in my life. My daughter's is/was.. this pain has been off and on for years and now is consistent so figuring out why. MENTAL HEALTH HISTORY: NONE No current outpatient medications on file prior to visit. No current facility-administered medications on file prior to visit. HISTORIES OB History T3 L3 SAB1 IAB0 Ectopic0 Multiple0 Live Births3 PAST MEDICAL HISTORY Diagnosis Date Allergic rhinitis, cause unspecified Allergic rhinitis Anemia H. 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), left ankle 09/05/2016 Short Achilles tendon (acquired), right ankle 09/05/2016 Urinary tract infection, site not specified Recurrent UTI's PAST SURGICAL HISTORY Procedure Laterality Date CATH & SALINE/CONTRAST SONOHYSTER/HYSTEROSALPI 2007 COLONOSCOPY FLX DX W/COLLJ SPEC WHEN PFRMD 07/02/2018 Colonoscopy ESOPHAGOGASTRODUODENOSCOPY TRANSORAL DIAGNOSTIC 12/27/2013 EGD ESOPHAGOGASTRODUODENOSCOPY TRANSORAL DIAGNOSTIC 03/31/2014 EGD PAST SURGICAL HISTORY OF 1988 CRYOCAUTERY PAST SURGICAL HISTORY OF 05/1994 breast augmentation PAST SURGICAL HISTORY OF Right elbow surgery TONSILLECTOMY PRIMARY/SECONDARY <AGE 12 Tonsillectomy Social History Tobacco Use Smoking status: Never Smoker Smokeless tobacco: Never Used Vaping Use Vaping Use: Never used Substance Use Topics Alcohol use: Yes Comment: social Drug use: Never No current outpatient medications on file prior to visit. No current facility-administered medications on file prior to visit. ALLERGIES Allergen Reactions Amoxicillin yeast infection Environment [Other] weeds, dust mold trees=sinus infection Keflex [Cephalexin] yeast infection Milk nasal congestion Septra [Sulfamethox* yeast infection FAMILY HISTORY Problem Relation Age of Onset other (LUPUS) Mother SCLERODRMA/ Heart Father Hypertension Father other (KIDNEY DISEASE) Father Heart Brother other (Atrial Fib) Brother other (Heart, 2 Leaky valves) Brother other (Leaky Valve) Brother Stroke Paternal Grandmother Cancer Paternal Uncle LUNG Ischemic Heart Disease Paternal Grandfather other (LUPUS) Sister HEART DISEASE/ Heart Maternal Grandmother Cancer Sister 58 lung and stomach cancer, 12/29/13 Arthritis Sister Diabetes Sister ROS OBJECTIVE LMP 08/05/2018 PHYSICAL EXAMINATION: Physical Exam Vitals and nursing note reviewed. Suede Cleaner present: patient declined. Constitutional: Appearance: Normal appearance. HENT: Head: Normocephalic. Abdominal: Palpations: Abdomen is soft. Genitourinary: General: Normal vulva. Comments: Spine tenderness negative SI joint L>R Pubic symphysis tendernessnegative Pubic bones R>L Abdominal tenderness generally tender Abdominal myofacial trigger points - Carnett's positive along bilateral rectus Vaginal Vestibular tenderness negative Rectal tenderness negative Bladder base tenderness negative Uterus tender, mobile Retrocervix no nodularity Pelvic Floor Musculature RIGHT SIDED - reproduces patients pain, tight band Pubococcygeus 2 Iliococcygeus 2 Coccygeus deferred Obturator deferred LEFT SIDED Pubococcygeus 0 Iliococcygeus 0 Coccygeus 0 Obturator deferred (Pain Scale 1 to 3, 3= extreme) RV exam - deferred Musculoskeletal: General: Normal range of motion. Cervical back: Normal range of motion. Neurological: General: No focal deficit present. Mental Status: She is alert and oriented to person, place, and time. Psychiatric: Mood and Affect: Mood normal. Behavior: Behavior normal. ASSESSMENT Clara Monteiro is a 55 year old female with Pelvic congestion syndrome Other intra-abdominal and pelvic swelling, mass and lump Pelvic and perineal pain Other specified dyspareunia High-tone pelvic floor dysfunction Urinary frequency Stress incontinence of urine Chronic pelvic pain in female (primary encounter diagnosis) Constipation, unspecified constipation type Trigger point of abdomen Encounter Diagnosis ICD-10-CM 1. Chronic pelvic pain in female R10.2 iv contrast (will be provided with radiology test) G89.29 Surgical Lubricant Jelly gel IR INTERVENTIONAL CONSULT CONSULT TO PHYSICAL THERAPY 2. Pelvic congestion syndrome N94.89 3. Other intra-abdominal and pelvic swelling, mass and lump R19.09 MRI FEMALE PELVIS WO/W IVCON iv contrast (will be provided with radiology test) Surgical Lubricant Jelly gel 4. Pelvic and perineal pain R10.2 MRI FEMALE PELVIS WO/W IVCON iv contrast (will be provided with radiology test) Surgical Lubricant Jelly gel IR INTERVENTIONAL CONSULT 5. Other specified dyspareunia N94.19 iv contrast (will be provided with radiology test) Surgical Lubricant Jelly gel CONSULT TO PHYSICAL THERAPY 6. High-tone pelvic floor dysfunction N94.89 CONSULT TO PHYSICAL THERAPY 7. Urinary frequency R35.0 CONSULT TO PHYSICAL THERAPY 8. Stress incontinence of urine N39.3 CONSULT TO PHYSICAL THERAPY 9. Constipation, unspecified constipation type K59.00 CONSULT TO PHYSICAL THERAPY 10. Trigger point of abdomen R10.9 CONSULT TO PHYSICAL THERAPY PLAN MRI to evaluate Prominent periuterine vessels seen on ultrasound Consult with interventional radiology Consider Pelvic floor physical therapy for incontinence, pain with intercourse and pelvic pain Relaxation techniques for pain Avoid constipation Aiyana Hernandez APRN.OPTIONS ADVISOR Medical Decision Making: Problems: Moderate: New problem with uncertain prognosis Data: Unique test result(s) reviewed: 1 Unique test(s) ordered: 1 Risk: Low: Low risk from testing/treatment Medical Decision Making Level: 3 - Low documented in this encounter [facility] 06-01-2021 Miscellaneous Notes Patient notified of results, verbalizes understanding of instructions. Patient transferred to schedule with pelvic pain clinic. Sandra Kapadia RN Left message to call office. Sandra Kapadia RN Please let the pt that she US shows pelvic congestion syndrome. I would like her to been seen a the pelvic pain clinic for further evaluation of this. Nancy Gotti APRN.CNP Patient called inquiring about her pelvic ultrasound results. Please review and advise. Lacey Charlton RN documented in this encounter [facility] 05-31-2021 Miscellaneous Notes May 31, 2021 PID: [id number] Clara Monteiro [address] [place] [id number] Dear Ms. Monteiro, We are pleased to inform you that the results of your recent breast imaging exam on 05/31/2021 are normal. Early detection of cancer is very important. We also understand recommendations regarding breast cancer screening are controversial. Please discuss with your primary care provider which strategy is best for you and whether a mammogram is right for you. Your imaging studies and report will be kept on file at [facility] as part of your permanent medical record and are available for your continuing care. Thank you for allowing us to help in meeting your health care needs. Sincerely, Dr. Stokes Interpreting Radiologist [facility] (Normal over 40) documented in this encounter [facility] 05-31-2021 History of Present illness Narrative Radiology Service Progress Note PATIENT NAME: Clara Monteiro DATE OF SERVICE: May 31, 2021 TIME: 1:58 PM PATIENT IDENTITY VERIFICATION COMPLETED USING TWO (2) IDENTIFIERS: Name and Date of confirmed by patient verbally. FALL SCREENING: Has the patient had 2 falls in the last year or 1 fall with injury or currently using an Ambulatory Assistive Device (Walker, Cane, Wheelchair, Crutches, etc.)? No PATIENT GENDER DATA: Female. status: : No status: N/A PATIENT RELEVANT IMPLANT DATA REVIEWED: Not Applicable RADIOLOGY DEPARTMENT: Ultrasound PERIPHERAL IV DATA: Not applicable SIGNED BY: Mary Wong RDMS RVT May 31, 2021 1:58 PM documented in this encounter [facility] 05-18-2021 History of Present illness Narrative Clara is a 55 year old who presents for an annual gynecologic exam with complaints, pelvic pain. Some pain with urination also Postmenopausal: Yes since age 53 HRT use: No. Last Pap: 08/08/2013 normal HPV: 08/02/2013 negative History of abnormal pap: Yes Last mammogram: 2016 short term follow up not doen History of abnormal mammogram: Yes Sexually active: Yes History of STDS: None Patient concerns for STD exposure: No. Pain with intercourse: No Postcoital bleeding: No OB History T3 L3 SAB1 IAB0 Ectopic0 Multiple0 Live Births3 Community Relations Coordinator History LMP: 08/05/2018 (Within Days), Postmenopausal Age at Menarche: Age at First : Age at Menopause: Community Relations Coordinator History Comments: Sexual Activity: Yes; Male Contraception: None PAST MEDICAL HISTORY Diagnosis Date Allergic rhinitis, cause unspecified Allergic rhinitis Anemia H. 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), left ankle 09/05/2016 Short Achilles tendon (acquired), right ankle 09/05/2016 Urinary tract infection, site not specified Recurrent UTI's PAST SURGICAL HISTORY Procedure Laterality Date CATH & SALINE/CONTRAST SONOHYSTER/HYSTEROSALPI 2007 COLONOSCOPY FLX DX W/COLLJ SPEC WHEN PFRMD 07/02/2018 Colonoscopy ESOPHAGOGASTRODUODENOSCOPY TRANSORAL DIAGNOSTIC 12/27/2013 EGD ESOPHAGOGASTRODUODENOSCOPY TRANSORAL DIAGNOSTIC 03/31/2014 EGD PAST SURGICAL HISTORY OF 1988 CRYOCAUTERY PAST SURGICAL HISTORY OF 05/1994 breast augmentation PAST SURGICAL HISTORY OF Right elbow surgery TONSILLECTOMY PRIMARY/SECONDARY <AGE 12 Tonsillectomy FAMILY HISTORY Problem Relation Age of Onset other (LUPUS) Mother SCLERODRMA/ Heart Father Hypertension Father other (KIDNEY DISEASE) Father Heart Brother other (Atrial Fib) Brother other (Heart, 2 Leaky valves) Brother other (Leaky Valve) Brother Stroke Paternal Grandmother Cancer Paternal Uncle LUNG Ischemic Heart Disease Paternal Grandfather other (LUPUS) Sister HEART DISEASE/ Heart Maternal Grandmother Cancer Sister 58 lung and stomach cancer, 12/29/13 Arthritis Sister Diabetes Sister SOCIAL HISTORY Social History Tobacco Use Smoking status: Never Smoker Smokeless tobacco: Never Used Vaping Use Vaping Use: Never used Substance Use Topics Alcohol use: Yes Comment: social Drug use: Never REVIEW OF SYSTEMS Abdomen: No nausea, vomiting, diarrhea, or constipation. No bloating, early satiety, indigestion, or increased flatulence. +pelvic pain Bladder: dysuria, pressure Breast: No breast lumps, nipple d/c, overlying skin changes, redness or skin retraction Allergies and current medication updated:Yes EXAM: Ht 5' 1.75 (1.57m) Wt 125 lb (56.7kg) LMP 08/05/2018 BMI 23.06 kg/(m^2). GENERAL: pleasant, female in no apparent distress HEENT: Normocephalic, atraumatic, mucus membranes moist and no lesions NECK: Supple, full range of motion, no adenopathy and thyroid normal DERMATOLOGY: Normal, without lesions, non-icteric and non-hirsute BREAST: soft, non-tender, symmetric, no dominant mass, normal nipple-areolar complex, no lymphadenopathy and no nipple discharge, implants CHEST: Normal inspiratory effort ABDOMEN: soft, non-tender and no masses PELVIC: external genitalia normal, normal Bartholin's glands, urethra, Dunseith's glands, no vulvar lesions, no cervical lesions, good vaginal support, physiologic discharge present, normal appearing perineal body and perianal region BIMANUAL: uterus normal size, shape and consistency, no adnexal masses and Mild tenderness, worst on the right then the left RECTOVAGINAL: deferred. NEURO: alert and oriented x3,exam grossly non-focal EXTREMITIES: normal ASSESSMENT/PLAN: 1) Health maintenance: Pap done with HPV. Mammogram ordered Nutrition, exercise and routine health maintenance exams reviewed. Calcium/Vitamin D supplementation information provided. 2) Follow up one year or sooner as needed 3) Pelvic US ordered Nancy Gotti APRN.CNP documented in this encounter [facility] 06-11-2020 History of Present illness Narrative Radiology Service Progress Note PATIENT NAME: Clara An DATE OF SERVICE: June 11, 2020 TIME: 8:23 AM PATIENT IDENTITY VERIFICATION COMPLETED USING TWO (2) IDENTIFIERS: Name and Date of confirmed by patient verbally. FALL SCREENING: Has the patient had 2 falls in the last year or 1 fall with injury or currently using an Ambulatory Assistive Device (Walker, Cane, Wheelchair, Crutches, etc.)? No PATIENT GENDER DATA: Female. status: : No status: NO. PATIENT RELEVANT IMPLANT DATA REVIEWED: Yes RADIOLOGY DEPARTMENT: General X-ray: Exam(s) Completed: Rib X-Ray: Left PERIPHERAL IV DATA: Not applicable SIGNED BY: RT Mike June 11, 2020 8:23 AM documented in this encounter [facility] 02-19-2014 History of Past i llness Narrative Problem Noted Date Diagnosed Date Resolved Date Panic attacks 02/19/2014 02/23/2022 Abdominal pain 09/09/2013 05/26/2015 Last Assessment & Plan: Is the patient having any pain? Yes LOCATION: epigastric region, and moves in band like fashion. PAIN SCALE: 5 on a scale of 0-10 PAIN CHARACTER: severe, she feels better doubling over. DURATION: Stays sometimes for A couple hours. FREQUENCY: every time after she eats food. AGGRAVATING FACTORS:food ALLEVIATING FACTORS: time makes it go away. MEDICATIONS: None. Melanocytic nevus of face 10/29/2012 Melanocytic nevi of trunk 10/29/2012 Melanocytic nevus of neck 10/29/2012 Solar lentigo 10/29/2012 05/26/2015 Other seborrheic keratosis 10/29/2012 0 05/26/2015 Actinic skin damage 10/29/2012 05/26/19 16 Dermatofibroma of thigh 10/29/201204/28 Louis angioma 10/29/2012 05/26/2015 documented as of this encounter (statuses as of 10/20/2022) [facility] History of Past illness Narrative* Problem Noted Date Resolved Date Abdominal pain 09/09/2013 05/26/2015 Last Assessment & Plan: Is the patient having any pain? Yes LOCATION: epigastric region, and moves in band like fashion. PAIN SCALE: 5 on a scale of 0-10 PAIN CHARACTER: severe, she feels better doubling over. DURATION: Stays sometimes for A couple hours. FREQUENCY: every time after she eats food. AGGRAVATING FACTORS:food ALLEVIATING FACTORS: time makes it go away. MEDICATIONS: None. Melanocytic nevus of face 10/29/20122015 Melanocytic nevi of trunk 10/29/20122015 Melanocytic nevus of neck 10/29/20122015 Solar lentigo 10/29/2012 05/26/2015 Other seborrheic keratosis 10/29/201205/25 Actinic skin damage 10/29/2012 05/26/2015 Dermatofibroma of thigh 10/29/2012 05/26/19 16 Louis angioma 10/29/2012 05/26/2015 documented as of this encounter (statuses as of 05/18/2021) [facility] History of Past illness Narrative* Problem Noted Date Resolved Date Abdominal pain 09/09/2013 05/26/2015 Last Assessment & Plan: Is the patient having any pain? Yes LOCATION: epigastric region, and moves in band like fashion. PAIN SCALE: 5 on a scale of 0-10 PAIN CHARACTER: severe, she feels better doubling over. DURATION: Stays sometimes for A couple hours. FREQUENCY: every time after she eats food. AGGRAVATING FACTORS:food ALLEVIATING FACTORS: time makes it go away. MEDICATIONS: None. Melanocytic nevus of face 10/29/20122015 Melanocytic nevi of trunk 10/29/20122015 Melanocytic nevus of neck 10/29/20122015 Solar lentigo 10/29/2012 05/26/2015 Other seborrheic keratosis 10/29/201205/25 Actinic skin damage 10/29/2012 05/26/2015 Dermatofibroma of thigh 10/29/2012 05/26/19 16 Louis angioma 10/29/2012 05/26/2015 documented as of this encounter (statuses as of 06/01/2021) [facility] History of Past illness Narrative* Problem Noted Date Resolved Date Abdominal pain 09/09/2013 05/26/2015 Last Assessment & Plan: Is the patient having any pain? Yes LOCATION: epigastric region, and moves in band like fashion. PAIN SCALE: 5 on a scale of 0-10 PAIN CHARACTER: severe, she feels better doubling over. DURATION: Stays sometimes for A couple hours. FREQUENCY: every time after she eats food. AGGRAVATING FACTORS:food ALLEVIATING FACTORS: time makes it go away. MEDICATIONS: None. Melanocytic nevus of face 10/29/20122015 Melanocytic nevi of trunk 10/29/20122015 Melanocytic nevus of neck 10/29/20122015 Solar lentigo 10/29/2012 05/26/2015 Other seborrheic keratosis 10/29/201205/25 Actinic skin damage 10/29/2012 05/26/2015 Dermatofibroma of thigh 10/29/2012 05/26/19 16 Louis angioma 10/29/2012 05/26/2015 documented as of this encounter (statuses as of 06/01/2021) [facility] History of Past illness Narrative* Problem Noted Date Resolved Date Abdominal pain 09/09/2013 05/26/2015 Last Assessment & Plan: Is the patient having any pain? Yes LOCATION: epigastric region, and moves in band like fashion. PAIN SCALE: 5 on a scale of 0-10 PAIN CHARACTER: severe, she feels better doubling over. DURATION: Stays sometimes for A couple hours. FREQUENCY: every time after she eats food. AGGRAVATING FACTORS:food ALLEVIATING FACTORS: time makes it go away. MEDICATIONS: None. Melanocytic nevus of face 10/29/20122015 Melanocytic nevi of trunk 10/29/20122015 Melanocytic nevus of neck 10/29/20122015 Solar lentigo 10/29/2012 05/26/2015 Other seborrheic keratosis 10/29/201205/25 Actinic skin damage 10/29/2012 05/26/2015 Dermatofibroma of thigh 10/29/2012 05/26/19 16 Louis angioma 10/29/2012 05/26/2015 documented as of this encounter (statuses as of 06/01/2021) [facility] History of Past illness Narrative* Problem Noted Date Resolved Date Abdominal pain 09/09/2013 05/26/2015 Last Assessment & Plan: Is the patient having any pain? Yes LOCATION: epigastric region, and moves in band like fashion. PAIN SCALE: 5 on a scale of 0-10 PAIN CHARACTER: severe, she feels better doubling over. DURATION: Stays sometimes for A couple hours. FREQUENCY: every time after she eats food. AGGRAVATING FACTORS:food ALLEVIATING FACTORS: time makes it go away. MEDICATIONS: None. Melanocytic nevus of face 10/29/20122015 Melanocytic nevi of trunk 10/29/20122015 Melanocytic nevus of neck 10/29/20122015 Solar lentigo 10/29/2012 05/26/2015 Other seborrheic keratosis 10/29/201205/25 Actinic skin damage 10/29/2012 05/26/2015 Dermatofibroma of thigh 10/29/2012 05/26/19 16 Louis angioma 10/29/2012 05/26/2015 documented as of this encounter (statuses as of 06/02/2021) [facility] History of Past illness Narrative* Problem Noted Date Resolved Date Abdominal pain 09/09/2013 05/26/2015 Last Assessment & Plan: Is the patient having any pain? Yes LOCATION: epigastric region, and moves in band like fashion. PAIN SCALE: 5 on a scale of 0-10 PAIN CHARACTER: severe, she feels better doubling over. DURATION: Stays sometimes for A couple hours. FREQUENCY: every time after she eats food. AGGRAVATING FACTORS:food ALLEVIATING FACTORS: time makes it go away. MEDICATIONS: None. Melanocytic nevus of face 10/29/20122015 Melanocytic nevi of trunk 10/29/20122015 Melanocytic nevus of neck 10/29/20122015 Solar lentigo 10/29/2012 05/26/2015 Other seborrheic keratosis 10/29/201205/25 Actinic skin damage 10/29/2012 05/26/2015 Dermatofibroma of thigh 10/29/2012 05/26/19 16 Louis angioma 10/29/2012 05/26/2015 documented as of this encounter (statuses as of 06/09/2021) [facility] History of Past illness Narrative* Problem Noted Date Resolved Date Abdominal pain 09/09/2013 05/26/2015 Last Assessment & Plan: Is the patient having any pain? Yes LOCATION: epigastric region, and moves in band like fashion. PAIN SCALE: 5 on a scale of 0-10 PAIN CHARACTER: severe, she feels better doubling over. DURATION: Stays sometimes for A couple hours. FREQUENCY: every time after she eats food. AGGRAVATING FACTORS:food ALLEVIATING FACTORS: time makes it go away. MEDICATIONS: None. Melanocytic nevus of face 10/29/20122015 Melanocytic nevi of trunk 10/29/20122015 Melanocytic nevus of neck 10/29/20122015 Solar lentigo 10/29/2012 05/26/2015 Other seborrheic keratosis 10/29/201205/25 Actinic skin damage 10/29/2012 05/26/2015 Dermatofibroma of thigh 10/29/2012 05/26/19 16 Louis angioma 10/29/2012 05/26/2015 documented as of this encounter (statuses as of 06/18/2021) [facility] History of Past illness Narrative* Problem Noted Date Resolved Date Abdominal pain 09/09/2013 05/26/2015 Last Assessment & Plan: Is the patient having any pain? Yes LOCATION: epigastric region, and moves in band like fashion. PAIN SCALE: 5 on a scale of 0-10 PAIN CHARACTER: severe, she feels better doubling over. DURATION: Stays sometimes for A couple hours. FREQUENCY: every time after she eats food. AGGRAVATING FACTORS:food ALLEVIATING FACTORS: time makes it go away. MEDICATIONS: None. Melanocytic nevus of face 10/29/20122015 Melanocytic nevi of trunk 10/29/20122015 Melanocytic nevus of neck 10/29/20122015 Solar lentigo 10/29/2012 05/26/2015 Other seborrheic keratosis 10/29/201205/25 Actinic skin damage 10/29/2012 05/26/2015 Dermatofibroma of thigh 10/29/2012 05/26/19 16 Louis angioma 10/29/2012 05/26/2015 documented as of this encounter (statuses as of 06/26/2021) [facility] of Past illness Narrative* Problem Noted Date Resolved Date Abdominal pain 09/09/2013 05/26/2015 Last Assessment & Plan: Is the patient having any pain? Yes LOCATION: epigastric region, and moves in band like fashion. PAIN SCALE: 5 on a scale of 0-10 PAIN CHARACTER: severe, she feels better doubling over. DURATION: Stays sometimes for A couple hours. FREQUENCY: every time after she eats food. AGGRAVATING FACTORS:food ALLEVIATING FACTORS: time makes it go away. MEDICATIONS: None. Melanocytic nevus of face 10/29/20122015 Melanocytic nevi of trunk 10/29/20122015 Melanocytic nevus of neck 10/29/20122015 Solar lentigo 10/29/2012 05/26/2015 Other seborrheic keratosis 10/29/201205/25 Actinic skin damage 10/29/2012 05/26/2015 Dermatofibroma of thigh 10/29/2012 05/26/19 16 Louis angioma 10/29/2012 05/26/2015 documented as of this encounter (statuses as of 06/29/2021) [facility] History of Past illness Narrative* Problem Noted Date Resolved Date Abdominal pain 09/09/2013 05/26/2015 Last Assessment & Plan: Is the patient having any pain? Yes LOCATION: epigastric region, and moves in band like fashion. PAIN SCALE: 5 on a scale of 0-10 PAIN CHARACTER: severe, she feels better doubling over. DURATION: Stays sometimes for A couple hours. FREQUENCY: every time after she eats food. AGGRAVATING FACTORS:food ALLEVIATING FACTORS: time makes it go away. MEDICATIONS: None. Melanocytic nevus of face 10/29/20122015 Melanocytic nevi of trunk 10/29/20122015 Melanocytic nevus of neck 10/29/20122015 Solar lentigo 10/29/2012 05/26/2015 Other seborrheic keratosis 10/29/201205/25 Actinic skin damage 10/29/2012 05/26/2015 Dermatofibroma of thigh 10/29/2012 05/26/19 16 Louis angioma 10/29/2012 05/26/2015 documented as of this encounter (statuses as of 06/29/2021) [facility] of Past illness Narrative* Problem Noted Date Resolved Date Abdominal pain 09/09/2013 05/26/2015 Last Assessment & Plan: Is the patient having any pain? Yes LOCATION: epigastric region, and moves in band like fashion. PAIN SCALE: 5 on a scale of 0-10 PAIN CHARACTER: severe, she feels better doubling over. DURATION: Stays sometimes for A couple hours. FREQUENCY: every time after she eats food. AGGRAVATING FACTORS:food ALLEVIATING FACTORS: time makes it go away. MEDICATIONS: None. Melanocytic nevus of face 10/29/20122015 Melanocytic nevi of trunk 10/29/20122015 Melanocytic nevus of neck 10/29/20122015 Solar lentigo 10/29/2012 05/26/2015 Other seborrheic keratosis 10/29/201205/25 Actinic skin damage 10/29/2012 05/26/2015 Dermatofibroma of thigh 10/29/2012 05/26/19 16 Louis angioma 10/29/2012 05/26/2015 documented as of this encounter (statuses as of 07/01/2021) [facility] of Past illness Narrative* Problem Noted Date Resolved Date Abdominal pain 09/09/2013 05/26/2015 Last Assessment & Plan: Is the patient having any pain? Yes LOCATION: epigastric region, and moves in band like fashion. PAIN SCALE: 5 on a scale of 0-10 PAIN CHARACTER: severe, she feels better doubling over. DURATION: Stays sometimes for A couple hours. FREQUENCY: every time after she eats food. AGGRAVATING FACTORS:food ALLEVIATING FACTORS: time makes it go away. MEDICATIONS: None. Melanocytic nevus of face 10/29/20122015 Melanocytic nevi of trunk 10/29/20122015 Melanocytic nevus of neck 10/29/20122015 Solar lentigo 10/29/2012 05/26/2015 Other seborrheic keratosis 10/29/201205/25 Actinic skin damage 10/29/2012 05/26/2015 Dermatofibroma of thigh 10/29/2012 05/26/19 16 Louis angioma 10/29/2012 05/26/2015 documented as of this encounter (statuses as of 07/06/2021) [facility] Narrative* Problem Noted Date Resolved Date Abdominal pain 09/09/2013 05/26/2015 Last Assessment & Plan: Is the patient having any pain? Yes LOCATION: epigastric region, and moves in band like fashion. PAIN SCALE: 5 on a scale of 0-10 PAIN CHARACTER: severe, she feels better doubling over. DURATION: Stays sometimes for A couple hours. FREQUENCY: every time after she eats food. AGGRAVATING FACTORS:food ALLEVIATING FACTORS: time makes it go away. MEDICATIONS: None. Melanocytic nevus of face 10/29/20122015 Melanocytic nevi of trunk 10/29/20122015 Melanocytic nevus of neck 10/29/20122015 Solar lentigo 10/29/2012 05/26/2015 Other seborrheic keratosis 10/29/201205/25 Actinic skin damage 10/29/2012 05/26/2015 Dermatofibroma of thigh 10/29/2012 05/26/19 16 Louis angioma 10/29/2012 05/26/2015 documented as of this encounter (statuses as of 07/13/2021) [facility] of Past [facility] Narrative* Problem Noted Date Resolved Date Abdominal pain 09/09/2013 05/26/2015 Last Assessment & Plan: Is the patient having any pain? Yes LOCATION: epigastric region, and moves in band like fashion. PAIN SCALE: 5 on a scale of 0-10 PAIN CHARACTER: severe, she feels better doubling over. DURATION: Stays sometimes for A couple hours. FREQUENCY: every time after she eats food. AGGRAVATING FACTORS:food ALLEVIATING FACTORS: time makes it go away. MEDICATIONS: None. Melanocytic nevus of face 10/29/20122015 Melanocytic nevi of trunk 10/29/20122015 Melanocytic nevus of neck 10/29/20122015 Solar lentigo 10/29/2012 05/26/2015 Other seborrheic keratosis 10/29/201205/25 Actinic skin damage 10/29/2012 05/26/2015 Dermatofibroma of thigh 10/29/2012 05/26/19 16 Louis angioma 10/29/2012 05/26/2015 documented as of this encounter (statuses as of 07/19/2021) [facility] Narrative* Problem Noted Date Resolved Date Abdominal pain 09/09/2013 05/26/2015 Last Assessment & Plan: Is the patient having any pain? Yes LOCATION: epigastric region, and moves in band like fashion. PAIN SCALE: 5 on a scale of 0-10 PAIN CHARACTER: severe, she feels better doubling over. DURATION: Stays sometimes for A couple hours. FREQUENCY: every time after she eats food. AGGRAVATING FACTORS:food ALLEVIATING FACTORS: time makes it go away. MEDICATIONS: None. Melanocytic nevus of face 10/29/20122015 Melanocytic nevi of trunk 10/29/20122015 Melanocytic nevus of neck 10/29/20122015 Solar lentigo 10/29/2012 05/26/2015 Other seborrheic keratosis 10/29/201205/25 Actinic skin damage 10/29/2012 05/26/2015 Dermatofibroma of thigh 10/29/2012 05/26/19 16 Louis angioma 10/29/2012 05/26/2015 documented as of this encounter (statuses as of 08/02/2021) [facility] of Past illness Narrative* Problem Noted Date Resolved Date Abdominal pain 09/09/2013 05/26/2015 Last Assessment & Plan: Is the patient having any pain? Yes LOCATION: epigastric region, and moves in band like fashion. PAIN SCALE: 5 on a scale of 0-10 PAIN CHARACTER: severe, she feels better doubling over. DURATION: Stays sometimes for A couple hours. FREQUENCY: every time after she eats food. AGGRAVATING FACTORS:food ALLEVIATING FACTORS: time makes it go away. MEDICATIONS: None. Melanocytic nevus of face 10/29/20122015 Melanocytic nevi of trunk 10/29/20122015 Melanocytic nevus of neck 10/29/20122015 Solar lentigo 10/29/2012 05/26/2015 Other seborrheic keratosis 10/29/201205/25 Actinic skin damage 10/29/2012 05/26/2015 Dermatofibroma of thigh 10/29/2012 05/26/19 16 Louis angioma 10/29/2012 05/26/2015 documented as of this encounter (statuses as of 08/03/2021) [facility] History of Past illness Narrative* Problem Noted Date Resolved Date Abdominal pain 09/09/2013 05/26/2015 Last Assessment & Plan: Is the patient having any pain? Yes LOCATION: epigastric region, and moves in band like fashion. PAIN SCALE: 5 on a scale of 0-10 PAIN CHARACTER: severe, she feels better doubling over. DURATION: Stays sometimes for A couple hours. FREQUENCY: every time after she eats food. AGGRAVATING FACTORS:food ALLEVIATING FACTORS: time makes it go away. MEDICATIONS: None. Melanocytic nevus of face 10/29/20122015 Melanocytic nevi of trunk 10/29/20122015 Melanocytic nevus of neck 10/29/20122015 Solar lentigo 10/29/2012 05/26/2015 Other seborrheic keratosis 10/29/201205/25 Actinic skin damage 10/29/2012 05/26/2015 Dermatofibroma of thigh 10/29/2012 05/26/19 16 Louis angioma 10/29/2012 05/26/2015 documented as of this encounter (statuses as of 08/20/2021) [facility] History of Past illness Narrative* Problem Noted Date Resolved Date Abdominal pain 09/09/2013 05/26/2015 Last Assessment & Plan: Is the patient having any pain? Yes LOCATION: epigastric region, and moves in band like fashion. PAIN SCALE: 5 on a scale of 0-10 PAIN CHARACTER: severe, she feels better doubling over. DURATION: Stays sometimes for A couple hours. FREQUENCY: every time after she eats food. AGGRAVATING FACTORS:food ALLEVIATING FACTORS: time makes it go away. MEDICATIONS: None. Melanocytic nevus of face 10/29/20122015 Melanocytic nevi of trunk 10/29/20122015 Melanocytic nevus of neck 10/29/20122015 Solar lentigo 10/29/2012 05/26/2015 Other seborrheic keratosis 10/29/201205/25 Actinic skin damage 10/29/2012 05/26/2015 Dermatofibroma of thigh 10/29/2012 05/26/19 16 Louis angioma 10/29/2012 05/26/2015 documented as of this encounter (statuses as of 08/23/2021) [facility] History of Past illness Narrative* Problem Noted Date Resolved Date Abdominal pain 09/09/2013 05/26/2015 Last Assessment & Plan: Is the patient having any pain? Yes LOCATION: epigastric region, and moves in band like fashion. PAIN SCALE: 5 on a scale of 0-10 PAIN CHARACTER: severe, she feels better doubling over. DURATION: Stays sometimes for A couple hours. FREQUENCY: every time after she eats food. AGGRAVATING FACTORS:food ALLEVIATING FACTORS: time makes it go away. MEDICATIONS: None. Melanocytic nevus of face 10/29/20122015 Melanocytic nevi of trunk 10/29/20122015 Melanocytic nevus of neck 10/29/20122015 Solar lentigo 10/29/2012 05/26/2015 Other seborrheic keratosis 10/29/201205/25 Actinic skin damage 10/29/2012 05/26/2015 Dermatofibroma of thigh 10/29/2012 05/26/19 16 Louis angioma 10/29/2012 05/26/2015 documented as of this encounter (statuses as of 02/11/2022) [facility] No data available for this section [facility] note* Diagnosis Encounter for gynecological examination (general) (routine) without abnormal findings- Primary Dysuria Encounter for screening for human papillomavirus (HPV) Special screening examination for human papillomavirus (HPV) Pap smear for cervical cancer screening Screening for malignant neoplasm of the cervix Encounter for screening mammogram for breast cancer Pelvic pain in female Unspecified symptom associated with female genital organs [facility] Encounter for screening mammogram for breast cancer [facility] Diagnosis Pelvic pain in female Unspecified symptom associated with female genital organs [facility] Diagnosis Pelvic congestion syndrome- Primary documented in this encounter [facility] note* Diagnosis Chronic pelvic pain in female- Primary Unspecified symptom associated with female genital organs Pelvic congestion syndrome Other intra-abdominal and pelvic swelling, mass and lump Pelvic and perineal pain Unspecified symptom associated with female genital organs Other specified dyspareunia High-tone pelvic floor dysfunction Other specified disorders of female genital organs Urinary frequency Stress incontinence of urine Constipation, unspecified constipation type Trigger point of abdomen [facility] Diagnosis Other intra-abdominal and pelvic swelling, mass and lump Pelvic and perineal pain Unspecified symptom associated with female genital organs [facility] Diagnosis Pelvic pain in female- Primary Unspecified symptom associated with female genital organs [facility] Diagnosis Chronic pelvic pain in female- Primary Unspecified symptom associated with female genital organs [facility] Diagnosis Pelvic pain in female Unspecified symptom associated with female genital organs [facility] Diagnosis Pelvic pain in female- Primary Unspecified symptom associated with female genital organs Pelvic pain documented in this encounter [facility] note* Diagnosis PMB (postmenopausal bleeding)- Primary Postmenopausal bleeding Pelvic cramping Unspecified symptom associated with female genital organs Pelvic pain in female Unspecified symptom associated with female genital organs [facility] noteNo assessment information availableWEast [facility] Work Phone: Evaluation note* Diagnosis Bacterial sinusitis- Primary Unspecified sinusitis (chronic) [facility] Diagnosis Sore throat- Primary Acute pharyngitis URI, acute Acute upper respiratory infections of unspecified site [facility] No data available for this section [facility] Discharge instructions Additional Instructions Most likely is secondary to a tendinitis of your left forearm. It could also be a strain of the muscle and a hematoma. All treated the same way. Ice, elevate, rest with Motrin for pain and inflammation. And Tylenol. This should progressively improve. Follow-up with your doctor if not improving.[facility] Work Phone: Reason for referral (narrative)* Diagnostic Procedure Only (Routine) - Authorized Specialty Diagnoses / Procedures Referred By Contac t Referred To Contact US IMAGING Diagnoses Pelvic pain in female Procedures US FEMALE PELVIS TRANSVAG US TRANSVAGINAL Nancy Gotti APRN.CNP [address] [place] [address] Us Imaging Referral ID Status Reason Start Date Expiration Date Visits Requested Visits Authorized [id number] Authorized Auto-Generat ed Referral 05/18/2021 06/17/2022 1 1 * Diagnostic Procedure Only (Routine) - Authorized Specialty Diagnoses / Procedures Referred By Nic t Referred To Contact BR IMAGING Diagnoses Encounter for screening mammogram for breast cancer Procedures TE SCREENING W OWEN SCREENING DIGITAL BREAST TOMOSYNTHESIS BI SCREENING MAMMOGRAPHY BI 2-VIEW BREAST INC CAD Nancy Gotti APRN.OPTIONS ADVISOR [address] [place] [place] [address] [facility] [address] [place] [address] Referral ID Status Reason Start Date Expiration Date Visits Requested Visits Authorized [id number] Authorized Auto-Generat ed Referral 05/18/2021 06/17/2022 1 1 [facility] for referral (narrative)* Diagnostic Procedure Only (Routine) - Closed Specialty Diagnoses / Procedures Referred By Contac t Referred To Contact BR IMAGING Diagnoses Encounter for screening mammogram for breast cancer Procedures TE SCREENING W OWEN SCREENING DIGITAL BREAST TOMOSYNTHESIS BI SCREENING MAMMOGRAPHY BI 2-VIEW BREAST INC CAD Nancy Gotti APRN.OPTIONS ADVISOR [address] [place] [place] [address] [facility] [address] [place] [address] Referral ID Status Reason Start Date Expiration Date V isits Requested Visits Authorized [id number] Closed Auto-Generate d Referral 05/18/2021 06/17/2022 1 1 [facility] for referral (narrative)* Diagnostic Procedure Only (Routine) - Closed Specialty Diagnoses / Procedures Referred By Nic cintron Referred To Contact US IMAGING Diagnoses Pelvic pain in female Procedures US FEMALE PELVIS TRANSVAG US TRANSVAGINAL Nancy Gotti APRN.OPTIONS ADVISOR [address] [place] [place] [address] Us Imaging Referral ID Status Reason Start Date Expiration Date V isits Requested Visits Authorized [id number] Closed Auto-Generate d Referral 05/18/2021 06/17/2022 1 1 [facility] for referral (narrative)No reason for referral information availableWEast [facility] Work Phone: Reason for visit Narrative* Diagnostic Procedure Only (Routine) - Closed Specialty Diagnoses / Procedures Referred By Nic cintron Referred To Contact BR IMAGING Diagnoses Encounter for screening mammogram for breast cancer Procedures TE SCREENING W OWEN SCREENING DIGITAL BREAST TOMOSYNTHESIS BI SCREENING MAMMOGRAPHY BI 2-VIEW BREAST INC CAD Nancy Gotti APRN.OPTIONS ADVISOR [address] [place] [address] [facility] [address] [place] [address] Referral ID Status Reason Start Date Expiration Date V isits Requested Visits Authorized [id number] Closed Auto-Generate d Referral 05/18/2021 06/17/2022 1 1 [facility] Advance Directives No Advanced Directives Records FoundDocuments on File Type Date Recorded 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 Advance Directive(s) Advance Directive(s) 07/02/2018 2:08 PM Advance Directive(s) 06/21/2018 10:17 AM Advance Directive(s) 06/19/2018 3:00 PM Documents on File Type Date Recorded 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 Advance Directive(s) Advance Directive(s) 07/02/2018 2:08 PM Advance Directive(s) 06/21/2018 10:17 AM Advance Directive(s) 06/19/2018 3:00 PM Documents on File Type Date Recorded 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 Advance Directive(s) Advance Directive(s) 07/20/2021 2:08 PM Advance Directive(s) 07/02/2018 2:08 PM Advance Directive(s) 06/21/2018 10:17 AM Advance Directive(s) 06/19/2018 3:00 PM Advance Directive Response Recorded Date/ Time Living Will No January 21, 2 021 5:19pm Power of Chainstitch Binder No January 21, 2021 5:19pm Advance Directive Response Recorded Date/ Time Living Will No February 20, 2 022 4:00pm Power of Chainstitch Binder No February 20, 2022 4:00pm Reason for Referral Specialty Diagnoses / Procedures Referred By Contac t Referred To Contact Diagnoses Pelvic congestion syndrome Procedures CONSULT 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 PELVIC PAIN OFFICE/OUTPATIENT [facility] 60-74 MINUTES Nancy Gotti TIE INSPECTOR.OPTIONS ADVISOR [address] [place] [address] Referral ID Status Reason Start Date Expiration Date Visits Requested Visits Authorized [id number] Authorized PCP Requested Referral Auto-Generate d Referral 06/01/2021 06/01/2022 1 1 Specialty Diagnoses / Procedures Referred By Contac t Referred To Contact [facility] Diagnoses Other specified dyspareunia High-tone pelvic floor dysfunction Urinary frequency Stress incontinence of urine Chronic pelvic pain in female Constipation, unspecified constipation type Trigger point of abdomen Procedures CONSULT TO PHYSICAL THERAPY PHYSICAL THERAPY EVALUATION HIGH COMPLEX 45 MINS Aiyana Hernandez, TIE INSPECTOR.OPTIONS ADVISOR [address] [place] [address] [facility] [place] [address] [place] [address] Referral ID Status Reason Start Date Expiration Date Visits Requested Visits Authorized [id number] Pending Review Auto-Generat ed Referral 06/09/2021 06/09/2022 1 1 Specialty Diagnoses / Procedures Referred By Contac t Referred To Contact MR IMAGING Diagnoses Other intra-abdominal and pelvic swelling, mass and lump Pelvic and perineal pain Procedures MRI FEMALE PELVIS WO/W IVCON MRI PELVIS W/O & W/CONTRAST MATERIAL Aiyana Hernandez APRN.OPTIONS ADVISOR [address] [place] [address] Mr Imaging Referral ID Status Reason Start Date Expiration Date Visits Requested Visits Authorized [id number] Authorized Auto-Generat ed Referral 06/09/2021 07/08/2021 1 1 Referral ID Status Reason Start Date Expiration Date V isits Requested Visits Authorized [id number] Closed Auto-Generate d Referral 06/09/2021 07/08/2021 1 1 Chief Complaint and Reason for Visit Chief Complaint Pelvic and perineal pain LLE PAIN & SWELLING, R/O DVT Chief Complaint LLE PAIN & SWELLING, R/O DVT upper extremity Family History No Family History Records Found Relationship Condition Age at Onset Recorded Date/T mellisa sister Arthritis Unknown Malignant neoplasm of lung Unknown brother Cardiac disease Unknown Summary Purpose Additional Source Comments Source Comments (unrecognize d section and content) In the event this informatio n is protected by the Federal Confidentiality of Alcohol and Drug Abuse Patient Records regulations: The Federal rules restrict any use of the information to criminally investigate or prosecute any alcohol or drug abuse patient.[facility] the event this information is protected by the Federal Confidentiality of Alcohol and Drug Abuse Patient Records regulations: The Federal rules restrict any use of the information to criminally investigate or prosecute any alcohol or drug abuse patient.[facility] the event this information is protected by the Federal Confidentiality of Alcohol and Drug Abuse Patient Records regulations: The Federal rules restrict any use of the information to criminally investigate or prosecute any alcohol or drug abuse patient.[facility] the event this information is protected by the Federal Confidentiality of Alcohol and Drug Abuse Patient Records regulations: The Federal rules restrict any use of the information to criminally investigate or prosecute any alcohol or drug abuse patient.[facility] the event this information is protected by the Federal Confidentiality of Alcohol and Drug Abuse Patient Records regulations: The Federal rules restrict any use of the information to criminally investigate or prosecute any alcohol or drug abuse patient.[facility] the event this information is protected by the Federal Confidentiality of Alcohol and Drug Abuse Patient Records regulations: The Federal rules restrict any use of the information to criminally investigate or prosecute any alcohol or drug abuse patient.[facility] the event this information is protected by the Federal Confidentiality of Alcohol and Drug Abuse Patient Records regulations: The Federal rules restrict any use of the information to criminally investigate or prosecute any alcohol or drug abuse patient.[facility] the event this information is protected by the Federal Confidentiality of Alcohol and Drug Abuse Patient Records regulations: The Federal rules restrict any use of the information to criminally investigate or prosecute any alcohol or drug abuse patient.[facility] the event this information is protected by the Federal Confidentiality of Alcohol and Drug Abuse Patient Records regulations: The Federal rules restrict any use of the information to criminally investigate or prosecute any alcohol or drug abuse patient.[facility] the event this information is protected by the Federal Confidentiality of Alcohol and Drug Abuse Patient Records regulations: The Federal rules restrict any use of the information to criminally investigate or prosecute any alcohol or drug abuse patient.[facility] the event this information is protected by the Federal Confidentiality of Alcohol and Drug Abuse Patient Records regulations: The Federal rules restrict any use of the information to criminally investigate or prosecute any alcohol or drug abuse patient.[facility] the event this information is protected by the Federal Confidentiality of Alcohol and Drug Abuse Patient Records regulations: The Federal rules restrict any use of the information to criminally investigate or prosecute any alcohol or drug abuse patient.[facility] the event this information is protected by the Federal Confidentiality of Alcohol and Drug Abuse Patient Records regulations: The Federal rules restrict any use of the information to criminally investigate or prosecute any alcohol or drug abuse patient.[facility] the event this information is protected by the Federal Confidentiality of Alcohol and Drug Abuse Patient Records regulations: The Federal rules restrict any use of the information to criminally investigate or prosecute any alcohol or drug abuse patient.[facility] the event this information is protected by the Federal Confidentiality of Alcohol and Drug Abuse Patient Records regulations: The Federal rules restrict any use of the information to criminally investigate or prosecute any alcohol or drug abuse patient.[facility] the event this information is protected by the Federal Confidentiality of Alcohol and Drug Abuse Patient Records regulations: The Federal rules restrict any use of the information to criminally investigate or prosecute any alcohol or drug abuse patient.[facility] the event this information is protected by the Federal Confidentiality of Alcohol and Drug Abuse Patient Records regulations: The Federal rules restrict any use of the information to criminally investigate or prosecute any alcohol or drug abuse patient.[facility] the event this information is protected by the Federal Confidentiality of Alcohol and Drug Abuse Patient Records regulations: The Federal rules restrict any use of the information to criminally investigate or prosecute any alcohol or drug abuse patient.[facility] the event this information is protected by the Federal Confidentiality of Alcohol and Drug Abuse Patient Records regulations: The Federal rules restrict any use of the information to criminally investigate or prosecute any alcohol or drug abuse patient.[facility] the event this information is protected by the Federal Confidentiality of Alcohol and Drug Abuse Patient Records regulations: The Federal rules restrict any use of the information to criminally investigate or prosecute any alcohol or drug abuse patient.[facility] the event this information is protected by the Federal Confidentiality of Alcohol and Drug Abuse Patient Records regulations: The Federal rules restrict any use of the information to criminally investigate or prosecute any alcohol or drug abuse patient.[facility] Reason for Visit (unrecogniz ed section and content) Reason Comments Yearly Exam Reason Comments Radiology US Specialty Diagnoses / Procedures Referred By Nic t Referred To Contact US IMAGING Diagnoses Pelvic pain in female Procedures US FEMALE PELVIS TRANSVAG US TRANSVAGINAL Nancy Gotti, TIE INSPECTOR.OPTIONS ADVISOR [address] [place] [address] Us Imaging Referral ID Status Reason Start Date Expiration Date V isits Requested Visits Authorized [id number] Closed Auto-Generate d Referral 05/18/2021 06/17/2022 1 1 Reason Comments Results Reason Comments New Patient Specialty Diagnoses / Procedures Referred By Contac t Referred To Contact Diagnoses Pelvic congestion syndrome Procedures CONSULT 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 PELVIC PAIN OFFICE/OUTPATIENT NEW HIGH MDM 60-74 MINUTES Nancy Gotti, TIE INSPECTOR.OPTIONS ADVISOR [address] [place] [address] Referral ID Status Reason Start Date Expiration Date V isits Requested Visits Authorized [id number] Closed PCP Requested Referral Auto-Generated Referral 06/01/2021 06/01/2022 1 1 Reason Comments FYI-No Action Needed Specialty Diagnoses / Procedures Referred By Contac t Referred To Contact MR IMAGING Diagnoses Other intra-abdominal and pelvic swelling, mass and lump Pelvic and perineal pain Procedures MRI FEMALE PELVIS WO/W IVCON MRI PELVIS W/O & W/CONTRAST MATERIAL Aiyana Hernandez APRN.OPTIONS ADVISOR [address] [place] [address] Mr Imaging Referral ID Status Reason Start Date Expiration Date V isits Requested Visits Authorized [id number] Closed Auto-Generate d Referral 06/09/2021 07/08/2021 1 1 Reason Comments Results Reason Comments Radiology IR Pelvic pain consult Reason Comments Appointment Reason Comments Patient Question Reason Comments Returning Patient's Call S/P ovarian vei n emb Reason Comments Post Menopausal Bleeding Reason Comments Head Congestion Sinus pain and press ure, [place] x3 weeks Reason Comments Sore Throat Congestion head x 3 days Specialty Diagnoses / Procedures Referred By Contac t Referred To Contact Radiology / [facility] Diagnoses Rib pain on left side [R07.81] Procedures XR GENERAL 7 Madie Metcalf MD [address] [place] [address] [facility] [address] [place] [address] Referral ID Status Reason Start Date Expiration Date V isits Requested Visits Authorized [id number] Closed Patient Cleared - INN Insurance Found 06/11/2020 09/09/2020 1 1 Care Teams (unrecognized sec tion and content) Dental Therapist Relationship Specialty Start Date End Date Madie Metcalf MD [address] [facility] [place] [address] PCP - General Internal Medicine 08/07/14 Dental Therapist Relationship Specialty Start Date End Date Madie Metcalf MD [address] [facility] [place] [address] PCP - General Internal Medicine 08/07/14 Dental Therapist Relationship Specialty Start Date End Date Madie Metcalf MD [address] [facility] [place] [address] PCP - General Internal Medicine 08/07/14 Dental Therapist Relationship Specialty Start Date End Date Madie Metcalf MD [address] [facility] [place] [address] PCP - General Internal Medicine 08/07/14 Dental Therapist Relationship Specialty Start Date End Date Madie Metcalf MD [address] [facility] [place] [address] PCP - General Internal Medicine 08/07/14 Dental Therapist Relationship Specialty Start Date End Date Madie Metcalf MD [address] [facility] [place] [address] PCP - General Internal Medicine 08/07/14 Dental Therapist Relationship Specialty Start Date End Date Madie Metcalf MD [address] [facility] [place] [address] PCP - General Internal Medicine 08/07/14 Dental Therapist Relationship Specialty Start Date End Date Madie Metcalf MD [address] [facility] [place] [address] PCP - General Internal Medicine 08/07/14 Dental Therapist Relationship Specialty Start Date End Date Madie Metcalf MD [address] [facility] [place] [address] PCP - General Internal Medicine 08/07/14 Dental Therapist Relationship Specialty Start Date End Date Madie Metcalf MD [address] [facility] [place] [address] PCP - General Internal Medicine 08/07/14 Dental Therapist Relationship Specialty Start Date End Date Madie Metcalf MD [address] [facility] [address] PCP - General Internal Medicine 08/07/14 Dental Therapist Relationship Specialty Start Date End Date Madie Metcalf MD [address] [facility] [address] PCP - General Internal Medicine 08/07/14 Dental Therapist Relationship Specialty Start Date End Date Madie Metcalf MD [address] [facility] [address] PCP - General Internal Medicine 08/07/14 Dental Therapist Relationship Specialty Start Date End Date Madie Metcalf MD [address] [facility] [place] [address] PCP - General Internal Medicine 08/07/14 Dental Therapist Relationship Specialty Start Date End Date [facility] PCP - General 02/23/22 Dental Therapist Relationship Specialty Start Date End Date Mdaie Metcalf MD [address] [facility] [place] [address] PCP - General Internal Medicine 08/07/14 02/01/22 Team Status: Active Member Role Status Dates Dr. Madie Metcalf MD Family Provider Active BIGG Garcia Primary Care Provider Active Team Status: Inactive Member Role Status Dates BIGG Garcia Primary Care Provider Active Start: April 25, 2024 End: April 25, 2024 Dr. Kristian Mir DO Attending Provider Active Start: April 25, 2024 End: April 25, 2024 Dr. Kristian Mir DO Referring Provider Active Start: April 25, 2024 End: April 25, 2024 Team Status: Inactive Member Role Status Dates BIGG Garcia Primary Care Provider Active Start: August 12, 2024 End: August 12, 2024 BIGG Garcia Attending Provider Active St art: August 12, 2024 End: August 12, 2024 Goals (unrecognized section and content) Goals may be documented in a n alternate section INFORMATION SOURCE (unrecogn ized section and content) DATE CREATED AUTHOR 03/16/2022 [facility] ([place]) DATE CREATED AUTHOR AUTHOR'S ORGANIZ ATION 10/21/2022 [facility] DATE CREATED AUTHOR AUTHOR'S ORGANIZ ATION 09/27/2024 [facility] FOR RECORDS PERTAINING TO PATIENTS WHO ARE OR HAVE BEEN ENROLLED IN A CHEMICAL DEPENDENCY/SUBSTANCEABUSE PROGRAM, SOME INFORMATION MAY BE OMITTED. This clinical summary was aggregated from multiple sources. Caution should be exercised in using it in the provision of clinical care. This summary normalizes information from multiple sources, and as a consequence, information in this document may materially change the coding, format and clinical context of patient data. In addition, data may be omitted in some cases. CLINICAL DECISIONS SHOULD BE BASED ON THE PRIMARY CLINICAL RECORDS. [employer] provides no warranty or guarantee of the accuracy or completeness of information in this document.
[2024-09-29] MEDS: Ketorolac 30 MG/ML Syringe IV (12:00)
[2024-09-29 12:09] VITALS: BP 132/66; PULSE 67; RESP 14; O2SAT 98
[2024-09-29 12:22] LABS: Anion Gap 10 (5-15); BUN 10 mg/dL (4-19); BUN/Creat Ratio 15.7 RATIO (10-20); Calcium,Total 9.2 mg/dL (7.6-11.0); Carbon Dioxide 25.4 mmol/L (21.0-32.0); Chloride 105 mmol/L (98-108); Estimated Creatinine Clearance 72.59 ml/min (50-250); Glucose 102 mg/dL (70-99); Potassium 4.2 mmol/L (3.3-5.1); Troponin T High Sensitivity < 6 ng/L (<=14)
[2024-09-29 12:36] VITALS: BP 130/73; PULSE 66; RESP 14; TEMP 36.4; O2SAT 100
== END 2024-09-29 12:40 | disposition home or self-care (01) ==
PROVIDERS: Physician Assistant; Emergency Provider Surgery; PCP Nurse Practitioner Family; Visit Provider Surgery
DX: R07.89 Other chest pain (principal); Z98.82 Breast implant status
CPT/HCPCS: 71046; 80048; 84484; 85025; 85379; 93005; 96374; 99284

== ENCOUNTER → 2024-10-18 | Outpatient (CLI) | payer BC, SELFPAY ==
--- NOTE | 2024-10-18 12:15 | BI_ITS ---
EXAM: SCRN MAMM (CAD)W/OWEN BILAT DATE: 10/18/2024 CLINICAL HISTORY: F, Age 59 y/o , ROUTINUE SCREENING No family history. Bilateral implants. TECHNIQUE: SCRN MAMM (CAD)W/OWEN BILAT COMPARISON: Prior exam(s) dated May 31, 2021. These are outside examination.. FINDINGS: TISSUE DENSITY: Must pick one of these options! Bilateral Breast Mammographic Findings: No significant masses, calcifications or other abnormalities are identified. Stable appearance of the bilateral breast implants. No suspicious masses, areas of developing architectural distortion, or suspicious calcifications. There has been no significant interval change. BI/SCRN MAMM (CAD)W/OWEN BILAT IMPRESSION: Stable examination. OVERALL FINAL ASSESSMENT BI-RADS 2: BENIGN RECOMMENDATION: Routine annual follow-up in 1 Year A letter with findings and recommendations will be mailed to the patient. Reading Location: [id number]
== END | disposition home or self-care (01) ==
PROVIDERS: PCP Nurse Practitioner Family; Referring Provider Surgery Plastic and Reconstructive Surgery; Visit Provider Surgery Plastic and Reconstructive Surgery
DX: Z12.31 Encounter for screening mammogram for malignant neoplasm of breast (principal); Z98.82 Breast implant status
CPT/HCPCS: 77063; 77067